=== PATIENT | female | born 1935 | race Caucasian/White ===

== ENCOUNTER 2018-05-15 00:34 | Inpatient (IN) | payer MEDICARE, BC ==
[2018-05-15 01:04] LABS: ADD MAN DIFF? NO
[2018-05-15 01:08] LABS: BASO # 0.1 x10^3/uL (0.0-0.2); BASO % 1 % (0-3); EOS # 0.1 x10^3/uL (0.0-0.7); EOS % 3 % (0-3); HEMATOCRIT 35.6 % (36.0-47.0); HEMOGLOBIN 12.4 g/dL (12.0-15.5); LYMPH # 1.3 x10^3/uL (1.0-4.8); LYMPH % 30 % (24-48); MEAN CORPUSCULAR HEMOGLOBIN 32 pg (25-35); MEAN CORPUSCULAR HGB CONC 35 g/dL (31-37); MEAN CORPUSCULAR VOLUME 93 fL (79-100); MONO # 0.4 x10^3/uL (0.0-1.1); MONO % 9 % (0-9); NEUT # 2.4 x10^3uL (1.8-7.7); NEUT % 57 % (31-73); PLATELET COUNT 154 x10^3/uL (140-400); RED BLOOD COUNT 3.84 x10^6/uL (3.50-5.40); RED CELL DISTRIBUTION WIDTH 14.4 % (11.5-14.5); WHITE BLOOD COUNT 4.2 x10^3/uL (4.0-11.0)
[2018-05-15 01:14] LABS: ANION GAP 7 (6-14); BLOOD UREA NITROGEN 23 mg/dL (7-20); BUN/CREATININE RATIO 12 (6-20); CALCIUM 9.1 mg/dL (8.5-10.1); CARBON DIOXIDE 27 mmol/L (21-32); CHLORIDE 103 mmol/L (98-107); CREATININE 1.9 mg/dL (0.6-1.0); GFR 25.4; GLUCOSE 108 mg/dL (70-99); POTASSIUM 4.2 mmol/L (3.5-5.1); SODIUM 137 mmol/L (136-145)
[2018-05-15 01:21] LABS: ALBUMIN 3.2 g/dL (3.4-5.0); ALBUMIN/GLOBULIN RATIO 0.8 (1.0-1.7); ALK PHOS 138 U/L (46-116); ALT (SGPT) 15 U/L (14-59); AST (SGOT) 21 U/L (15-37); CREATINE KINASE 115 U/L (26-192); TOTAL BILIRUBIN 0.7 mg/dL (0.2-1.0); TOTAL PROTEIN 7.1 g/dL (6.4-8.2)
[2018-05-15 01:31] LABS: TROPONINI < 0.017 ng/mL (0.000-0.055)
[2018-05-15] MEDS ORDERED: ONDANSETRON PF 4 MG/2 ML VIAL. IV (01:45)
[2018-05-15] MEDS ORDERED: NITROGLYCERIN SUBLINGUAL 0.4 MG BOTTLE OF 25. SL (02:45)
[2018-05-15] MEDS: fentaNYL PF VIAL 100 MCG/2 ML VIAL IV (09:07)
[2018-05-15] MEDS: LEVOTHYROXINE 25 MCG TABLET. PO (09:07)
[2018-05-15 10:04] LABS: MAGNESIUM 1.8 mg/dL (1.8-2.4)
[2018-05-15 10:16] LABS: TROPONINI < 0.017 ng/mL (0.000-0.055)
[2018-05-15 10:19] LABS: THYROID STIM HORMONE (TSH) 16.226 uIU/mL (0.358-3.74)
[2018-05-15] MEDS: ONDANSETRON PF 4 MG/2 ML VIAL. IV (10:22)
[2018-05-15 12:55] LABS: TROPONINI < 0.017 ng/mL (0.000-0.055)
[2018-05-15 16:05] LABS: TROPONINI < 0.017 ng/mL (0.000-0.055)
[2018-05-15] MEDS: HYDROcodone/APAP 5/325MG 1 TAB TABLET PO ×2 (17:10→22:31)
[2018-05-16 05:55] LABS: ANION GAP 10 (6-14); BLOOD UREA NITROGEN 21 mg/dL (7-20); CALCIUM 9.1 mg/dL (8.5-10.1); CARBON DIOXIDE 23 mmol/L (21-32); CHLORIDE 105 mmol/L (98-107); CHOLESTEROL 181 mg/dL (0-200); CHOLESTEROL/HDL RATIO 3.8; CREATININE 1.9 mg/dL (0.6-1.0); GFR 25.4; GLUCOSE 84 mg/dL (70-99); HDLC 48 mg/dL (40-60); LDLC 113 mg/dL (0-100); NON-HDL CHOLESTEROL 133 mg/dL (0-129); POTASSIUM 4.9 mmol/L (3.5-5.1); SODIUM 138 mmol/L (136-145); TRIGLYCERIDES 100 mg/dL (0-150); VLDLC 20 mg/dL (0-40)
[2018-05-16] MEDS: REGADENOSON 0.4 MG/5 ML DISP.SYRIN. IV (08:15)
[2018-05-16] MEDS: LEVOTHYROXINE 75 MCG TABLET PO (11:34)
[2018-05-16] MEDS: HYDROcodone/APAP 5/325MG 1 TAB TABLET PO (11:35)
[2018-05-17] MEDS: REGADENOSON 0.4 MG/5 ML DISP.SYRIN. IV (08:40)
[2018-05-17] MEDS: ONDANSETRON PF 4 MG/2 ML VIAL. IV (09:32)
[2018-05-17] MEDS: IV NORMAL SALINE 1000ML BAG 1,000 ML IV ×2 (10:40→20:15)
[2018-05-17] MEDS: LEVOTHYROXINE 75 MCG TABLET PO (10:41)
[2018-05-17] MEDS: HYDROcodone/APAP 5/325MG 1 TAB TABLET PO ×2 (13:45→20:47)
[2018-05-17] MEDS: ACETAMINOPHEN 500 MG TABLET PO (14:34)
[2018-05-18 04:54] LABS: ALBUMIN 2.7 g/dL (3.4-5.0); ANION GAP 6 (6-14); BLOOD UREA NITROGEN 20 mg/dL (7-20); CALCIUM 8.3 mg/dL (8.5-10.1); CARBON DIOXIDE 28 mmol/L (21-32); CHLORIDE 107 mmol/L (98-107); CREATININE 1.8 mg/dL (0.6-1.0); GLUCOSE 85 mg/dL (70-99); PHOSPHORUS 3.5 mg/dL (2.6-4.7); POTASSIUM 4.2 mmol/L (3.5-5.1); SODIUM 141 mmol/L (136-145)
[2018-05-18] MEDS: LEVOTHYROXINE 75 MCG TABLET PO (06:03)
== END 2018-05-18 15:15 | disposition home or self-care (01) | DRG 392 ==
LOC: ER 00:34 → 2 NORTH 02:30
DX: K21.9 Gastro-esophageal reflux disease without esophagitis (principal); Z68.41 Body mass index [BMI] 40.0-44.9, adult; R07.89 Other chest pain; I10 Essential (primary) hypertension; E03.9 Hypothyroidism, unspecified; E66.01 Morbid (severe) obesity due to excess calories; Z82.49 Family history of ischemic heart disease and other diseases of the circulatory system; Z88.8 Allergy status to other drugs, medicaments and biological substances
CPT/HCPCS: 36415; 36569; 71045; 78452; 80048; 80053; 80061; 80069; 82550; 83735; 84439; 84443; 84481; 84484; 85025; 93005; 93017; 93306; 96374; 96375; 96376; 97161-GP; 97165-GO; 99285; 99285-25; A9500; J2405; J2785; J3010; J7030

== ENCOUNTER 2019-03-04 14:19 | Inpatient (IN) | payer MEDICARE, BC ==
[~2019-03-04] VITALS: Ht 160 cm; Wt 97.2 kg
[~2019-03-04 14:19] MED LIST: LEVO25TA4 PO; LEVO75TA PO
[2019-03-04 18:30] VITALS: BP 159/77
[2019-03-04 19:42] VITALS: BP 100/74
[2019-03-04] MEDS ORDERED: ACET325C5 PO (20:16)
[2019-03-04] MEDS ORDERED: CITA10TA4 PO (20:20)
[2019-03-04] MEDS ORDERED: CALC-56 PO (20:20)
[2019-03-04] MEDS ORDERED: ONDANSETRON PF 4 MG/2 ML VIAL. IV PRN (20:45)
[2019-03-04] MEDS: IV DEXTROSE 5 %-0.45 % NACL 1,000 ML IV SCH (22:07)
[2019-03-04 23:22] VITALS: BP 135/63
[2019-03-04 23:55] LABS: BASO % 1 % (0-3); EOS # 0.2 x10^3/uL (0.0-0.7); EOS % 7 % (0-3); HEMATOCRIT 35.5 % (36.0-47.0); HEMOGLOBIN 11.8 g/dL (12.0-15.5); LYMPH % 37 % (24-48); MEAN CORPUSCULAR HEMOGLOBIN 31 pg (25-35); MEAN CORPUSCULAR HGB CONC 33 g/dL (31-37); MEAN CORPUSCULAR VOLUME 95 fL (79-100); MONO # 0.3 x10^3/uL (0.0-1.1); MONO % 10 % (0-9); NEUT # 1.2 x10^3uL (1.8-7.7); NEUT % 45 % (31-73); PLATELET COUNT 106 x10^3/uL (140-400); RED BLOOD COUNT 3.76 x10^6/uL (3.50-5.40); RED CELL DISTRIBUTION WIDTH 14.2 % (11.5-14.5); WHITE BLOOD COUNT 2.7 x10^3/uL (4.0-11.0)
[2019-03-05 00:14] LABS: ALBUMIN 3.1 g/dL (3.4-5.0); ALBUMIN/GLOBULIN RATIO 0.8 (1.0-1.7); CALCIUM 9.4 mg/dL (8.5-10.1); CREATININE 1.8 mg/dL (0.6-1.0); POTASSIUM 3.8 mmol/L (3.5-5.1)
[2019-03-05] MEDS: fentaNYL PF VIAL 100 MCG/2 ML VIAL IV PRN ×2 (00:25→09:43)
[2019-03-05] MEDS ORDERED: PANT20TA2 PO (01:46)
[2019-03-05] MEDS ORDERED: NYST15PO9 TP (01:46)
[2019-03-05] MEDS ORDERED: DONE10TA7 PO (01:46)
[2019-03-05] MEDS ORDERED: ASPI81TA50 PO (01:46)
[2019-03-05] MEDS ORDERED: MEMA10TA PO (01:46)
[2019-03-05] MEDS ORDERED: LEVO100T5 PO (01:46)
[2019-03-05] MEDS ORDERED: LOSA-73 PO (01:46)
[2019-03-05] MEDS ORDERED: MELA3TAB2 PO (01:46)
[2019-03-05] MEDS ORDERED: DOCU100C28 PO (01:46)
[2019-03-05] MEDS ORDERED: ONDA4TAB12 PO (01:46)
[2019-03-05 02:17] VITALS: BP 178/65
[2019-03-05] MEDS ORDERED: ONDANSETRON ODT 4 MG TAB.RAPDIS. PO PRN (06:00)
[2019-03-05] MEDS: LEVOTHYROXINE 100 MCG TABLET PO SCH (06:00)
[2019-03-05 07:42] VITALS: BP 123/61
--- NOTE | 2019-03-05 08:20 | RAD ---
Examination: Ultrasound abdomen complete HISTORY: History of abdominal pain COMPARISON: None available. FINDINGS: The pancreas is poorly visualized. There is increased echogenicity noted in the liver likely hepatic steatosis. The liver measures 17.1 cm. The common bile duct measures 4.9 mm in transverse dimension. Multiple echogenicities identified within the gallbladder likely gallstones. The gallbladder wall thickness measures 3.5 mm. Examination is positive for ultrasonographic evidence of Hernandez's sign. Minimal pericholecystic fluid is identified. The right kidney measures 9.5 x 4.9 x 4.9 cm. The left kidney measures 10.5 x 4.8 x 4.4 cm. There is a 1 cm cystic structure identified in the left kidney containing echogenicities could be a cyst or a complex cyst. Thinning of the bilateral renal cortices. The aorta, IVC are not well-visualized. The spleen measures 13.5 cm. IMPRESSION: 1. Cholelithiasis with thickening of the gallbladder wall and ultrasonographic evidence of Hernandez's sign with minimal pericholecystic fluid. Correlate for acute cholecystitis. 2. Hepatic steatosis. 3. 1 cm cystic structure identified in the left kidney containing echogenicity could be a complex cyst. Thinning of the bilateral renal cortices. Correlate for medical renal disease. Electronically signed by: Kelvin Handley MD (03/05/2019 8:17 AM) [facility]
[2019-03-05] MEDS: NYSTATIN TOPICAL POWDER 15GM BOTTLE. TP SCH ×3 (09:00→21:00)
--- NOTE | 2019-03-05 09:12 | PDOC2 ---
CONSULT Date of Consult Date of Consult DATE: 03/05/19 TIME: 09:02 Reason for Consult Reason for Consult: possible SBO Referring Physician Referring Physician: Dr Perea Identification/Chief Complaint Chief Complaint doesn't feel well Source Source: Chart review, Patient History of Present Illness Reason for Visit: Ms Menon is a radha 83 yo lady with a hx of atrial fibrillation who was most recently staying at the [facility] after a hospitalization for near syncope. Concern for possible bowel obstruction by staff there resulted in her being admitted for evaluation. This AM she really isn't having abdominal pain but "just doesn't feel good". US done here shows cholelithiasis with some GB wall thickening Past Medical History Cardiovascular: HTN Endocrine: Hypothyroidism Past Surgical History Past Surgical History: No pertinent history Family History Family History: Hypertension Social History No ALCOHOL: none Drugs: None Current Medications Current Medications Current Medications Dextrose/Sodium Chloride 1,000 ml @ 100 mls/hr Q10H IV Last administered on 03/04/19at 22:07; Start 03/04/19 at 20:45 Fentanyl Citrate (Fentanyl 2ml Vial) 50 mcg PRN Q3HRS PRN IV PAIN Last administered on 03/05/19at 00:25; Start 03/04/19 at 20:45 Ondansetron HCl (Zofran) 4 mg PRN Q4HRS PRN IV NAUSEA/VOMITING; Start 03/04/19 at 20:45 Calcium/Vitamin D (Oscal D 500mg/ 200uts) 1 tab DAILYWBKFT PO ; Start 03/05/19 at 08:00 Citalopram Hydrobromide (CeleXA) 10 mg DAILY PO ; Start 03/05/19 at 09:00 Docusate Sodium (Colace) 100 mg BID PO ; Start 03/05/19 at 09:00 Levothyroxine Sodium (Synthroid) 100 mcg DAILY06 PO ; Start 03/05/19 at 06:00 Losartan Potassium (Cozaar) 50 mg DAILY PO ; Start 03/05/19 at 09:00 Nystatin (Nystop) 1 chloe BID TP ; Start 03/05/19 at 09:00 Ondansetron HCl (Zofran Odt) 4 mg PRN Q8HRS PRN PO NAUSEA/VOMITING; Start 03/05/19 at 06:00 Acetaminophen (Tylenol) 650 mg PRN Q4HRS PRN PO PAIN; Start 03/05/19 at 05:45 Donepezil HCl (Aricept) 10 mg HS PO ; Start 03/05/19 at 21:00 Memantine (Namenda) 5 mg BID PO ; Start 03/05/19 at 09:00 Pantoprazole Sodium (Protonix) 40 mg DAILYAC PO ; Start 03/05/19 at 07:30 Active Scripts Active Reported Protonix (Pantoprazole Sodium) 20 Mg Tablet.dr 2 Tab PO DAILY Ondansetron Odt (Ondansetron) 4 Mg Tab.rapdis 1 Tab PO PRN Q6-8HRS Nystatin 15 Gm Powder 1 Chloe TP BID Namenda (Memantine Hcl) 10 Mg Tablet 0.5 Tab PO BID Melatonin 3 Mg Tablet 1 Tab PO QHS Losartan Potassium 50 Mg Tablet 50 Mg PO DAILY Levothyroxine Sodium 100 Mcg Tablet 1 Tab PO DAILY Donepezil Hcl 10 Mg Tablet 10 Mg PO HS Docusate Sodium 100 Mg Capsule 1 Cap PO BID Aspir-Low (Aspirin) 81 Mg Tablet.dr 1 Tab PO DAILY Citalopram Hbr (Citalopram Hydrobromide) 10 Mg Tablet 1 Tab PO DAILY Calcium 500 + Vit D 200 Caplet (Calcium Carbonate/Vitamin D3) 1 Each Tablet 1 Each PO DAILY Tylenol (Acetaminophen) 325 Mg Capsule 650 Mg PO PRN Q4HRS PRN Allergies Allergies: Coded Allergies: morphine (Verified Allergy, Unknown, 05/15/18) ROS Review of System negative with exception of present complaints Cardiovascular: yes Chest Pain Physical Exam General: Alert, Cooperative, No acute distress HEENT: Atraumatic Lungs: Normal air movement Heart: Regular rate, Other Abdomen: Soft, No tenderness, Other (obese) Extremities: No clubbing Skin: Other (warm, dry) Psych/Mental Status: Mental status NL Vitals VITALS Vital Signs Date Time Temp Pulse Resp B/P (MAP) Pulse Ox O2 Delivery O2 Flow Rate FiO2 03/05/19 07:42 97.6 51 16 123/61 (81) 97 Room Air 97.6 Labs Labs Laboratory Tests Test 03/04/19 23:40 White Blood Count 2.7 x10^3/uL (4.0-11.0) Red Blood Count 3.76 x10^6/uL (3.50-5.40) Hemoglobin 11.8 g/dL (12.0-15.5) Hematocrit 35.5 % (36.0-47.0) Mean Corpuscular Volume 95 fL (79-100) Mean Corpuscular Hemoglobin 31 pg (25-35) Mean Corpuscular Hemoglobin Concent 33 g/dL (31-37) Red Cell Distribution Width 14.2 % (11.5-14.5) Platelet Count 106 x10^3/uL (140-400) Neutrophils (%) (Auto) 45 % (31-73) Lymphocytes (%) (Auto) 37 % (24-48) Monocytes (%) (Auto) 10 % (0-9) Eosinophils (%) (Auto) 7 % (0-3) Basophils (%) (Auto) 1 % (0-3) Neutrophils # (Auto) 1.2 x10^3uL (1.8-7.7) Lymphocytes # (Auto) 1.0 x10^3/uL (1.0-4.8) Monocytes # (Auto) 0.3 x10^3/uL (0.0-1.1) Eosinophils # (Auto) 0.2 x10^3/uL (0.0-0.7) Basophils # (Auto) 0.0 x10^3/uL (0.0-0.2) Sodium Level 141 mmol/L (136-145) Potassium Level 3.8 mmol/L (3.5-5.1) Chloride Level 107 mmol/L (98-107) Carbon Dioxide Level 26 mmol/L (21-32) Anion Gap 8 (6-14) Blood Urea Nitrogen 18 mg/dL (7-20) Creatinine 1.8 mg/dL (0.6-1.0) Estimated GFR (Cockcroft-Gault) 27.0 BUN/Creatinine Ratio 10 (6-20) Glucose Level 106 mg/dL (70-99) Lactic Acid Level 0.9 mmol/L (0.4-2.0) Calcium Level 9.4 mg/dL (8.5-10.1) Total Bilirubin 1.0 mg/dL (0.2-1.0) Aspartate Amino Transf (AST/SGOT) 20 U/L (15-37) Alanine Aminotransferase (ALT/SGPT) 14 U/L (14-59) Alkaline Phosphatase 119 U/L (46-116) Lactate Dehydrogenase 220 U/L (81-234) Total Protein 7.0 g/dL (6.4-8.2) Albumin 3.1 g/dL (3.4-5.0) Albumin/Globulin Ratio 0.8 (1.0-1.7) Lipase 213 U/L (73-393) Laboratory Tests Test 03/04/19 23:40 White Blood Count 2.7 x10^3/uL (4.0-11.0) Red Blood Count 3.76 x10^6/uL (3.50-5.40) Hemoglobin 11.8 g/dL (12.0-15.5) Hematocrit 35.5 % (36.0-47.0) Mean Corpuscular Volume 95 fL (79-100) Mean Corpuscular Hemoglobin 31 pg (25-35) Mean Corpuscular Hemoglobin Concent 33 g/dL (31-37) Red Cell Distribution Width 14.2 % (11.5-14.5) Platelet Count 106 x10^3/uL (140-400) Neutrophils (%) (Auto) 45 % (31-73) Lymphocytes (%) (Auto) 37 % (24-48) Monocytes (%) (Auto) 10 % (0-9) Eosinophils (%) (Auto) 7 % (0-3) Basophils (%) (Auto) 1 % (0-3) Neutrophils # (Auto) 1.2 x10^3uL (1.8-7.7) Lymphocytes # (Auto) 1.0 x10^3/uL (1.0-4.8) Monocytes # (Auto) 0.3 x10^3/uL (0.0-1.1) Eosinophils # (Auto) 0.2 x10^3/uL (0.0-0.7) Basophils # (Auto) 0.0 x10^3/uL (0.0-0.2) Sodium Level 141 mmol/L (136-145) Potassium Level 3.8 mmol/L (3.5-5.1) Chloride Level 107 mmol/L (98-107) Carbon Dioxide Level 26 mmol/L (21-32) Anion Gap 8 (6-14) Blood Urea Nitrogen 18 mg/dL (7-20) Creatinine 1.8 mg/dL (0.6-1.0) Estimated GFR (Cockcroft-Gault) 27.0 BUN/Creatinine Ratio 10 (6-20) Glucose Level 106 mg/dL (70-99) Lactic Acid Level 0.9 mmol/L (0.4-2.0) Calcium Level 9.4 mg/dL (8.5-10.1) Total Bilirubin 1.0 mg/dL (0.2-1.0) Aspartate Amino Transf (AST/SGOT) 20 U/L (15-37) Alanine Aminotransferase (ALT/SGPT) 14 U/L (14-59) Alkaline Phosphatase 119 U/L (46-116) Lactate Dehydrogenase 220 U/L (81-234) Total Protein 7.0 g/dL (6.4-8.2) Albumin 3.1 g/dL (3.4-5.0) Albumin/Globulin Ratio 0.8 (1.0-1.7) Lipase 213 U/L (73-393) Images Images US done earlier is reviewed Assessment/Plan Assessment/Plan cholelithiasis, subacute cholecystitis hx of AF obesity will manage non operatively til seen by cardiology cover with antibiotics may need zoraida at some point will follow thanks for consult! KIN MEJIA MD March 05, 2019 09:12
[2019-03-05] MEDS ORDERED: PIP/TAZO PER PHARMACY MC PRN (09:15)
[2019-03-05] MEDS: ACETAMINOPHEN 325 MG TABLET. PO PRN ×2 (09:38→22:31)
[2019-03-05] MEDS: IV DEXTROSE 5 %-0.45 % NACL 1,000 ML IV SCH ×2 (09:42→22:34)
[2019-03-05] MEDS: PIPERACILLIN/TAZOBACTAM 2.25 GM in IV NORMAL SALINE 50ML 50 ML IV SCH ×2 (09:52→18:02)
--- NOTE | 2019-03-05 10:18 | NUR ---
PATIENT CALLED TO NURSES STATION. PATIENT STATED SHE HAD BLEEDING AT HER IV SITE. THIS RN ASSESSED SITE AND PATIENT ACCIDENTALLY PULLED OUT IV. PRESSURE HELD AT SITE. WILL CONTINUE TO MONITOR THAT SITE.
--- NOTE | 2019-03-05 10:42 | PDOC ---
PROGRESS NOTES Subjective Subjective Patient was seen in consultation for chest pain at [facility] prior to transfer to [facility]. Please see full consultation from [facility]. She continues to complain of atypical right-sided chest pain but denied any orthopnea/PND, palpitations Objective Objective Vital Signs Date Time Temp Pulse Resp B/P (MAP) Pulse Ox O2 Delivery O2 Flow Rate FiO2 03/05/19 09:43 97 Room Air 03/05/19 07:42 97.6 51 16 123/61 (81) 97.6 Intake and Output 03/05/19 06:59 Intake Total 800 ml Output Total 950 ml Balance -150 ml Intake Oral 0 ml IV Total 800 ml Output Urine Total 950 ml Physical Exam Abdomen: Soft, No tenderness, Other (obese) Heart: Regular rate, Other Extremities: No clubbing General: Alert, Cooperative, No acute distress HEENT: Atraumatic Lungs: Normal air movement Psych/Mental Status: Mental status NL Skin: Other (warm, dry) Assessment Assessment 1. Chest pain with atypical features: Myocardial infarction has been ruled out. This appears to be musculoskeletal versus GI etiology and I doubt ACS. 2-D echo in April 2018 showed normal LV systolic function and Lexiscan nuclear stress test at that time did not show any significant ischemia. 2. Hypertension: Controlled 3. Syncope of uncertain etiology in the past s/p loop recorder implantation: Recent device checks did not show any significant arrhythmias/pauses 4. History of SVT versus atrial flutter in the past without any arrhythmias on loop recorder interrogations 5. Hypothyroidism: On levothyroxine 6. Subacute cholecystitis being followed by general surgery team. Patient is cleared for any procedures necessary, from cardiac standpoint Comment Review of Relevant I have reviewed the following items laurent (where applicable) has been applied. Labs Laboratory Tests Test 03/04/19 23:40 White Blood Count 2.7 x10^3/uL (4.0-11.0) Red Blood Count 3.76 x10^6/uL (3.50-5.40) Hemoglobin 11.8 g/dL (12.0-15.5) Hematocrit 35.5 % (36.0-47.0) Mean Corpuscular Volume 95 fL (79-100) Mean Corpuscular Hemoglobin 31 pg (25-35) Mean Corpuscular Hemoglobin Concent 33 g/dL (31-37) Red Cell Distribution Width 14.2 % (11.5-14.5) Platelet Count 106 x10^3/uL (140-400) Neutrophils (%) (Auto) 45 % (31-73) Lymphocytes (%) (Auto) 37 % (24-48) Monocytes (%) (Auto) 10 % (0-9) Eosinophils (%) (Auto) 7 % (0-3) Basophils (%) (Auto) 1 % (0-3) Neutrophils # (Auto) 1.2 x10^3uL (1.8-7.7) Lymphocytes # (Auto) 1.0 x10^3/uL (1.0-4.8) Monocytes # (Auto) 0.3 x10^3/uL (0.0-1.1) Eosinophils # (Auto) 0.2 x10^3/uL (0.0-0.7) Basophils # (Auto) 0.0 x10^3/uL (0.0-0.2) Sodium Level 141 mmol/L (136-145) Potassium Level 3.8 mmol/L (3.5-5.1) Chloride Level 107 mmol/L (98-107) Carbon Dioxide Level 26 mmol/L (21-32) Anion Gap 8 (6-14) Blood Urea Nitrogen 18 mg/dL (7-20) Creatinine 1.8 mg/dL (0.6-1.0) Estimated GFR (Cockcroft-Gault) 27.0 BUN/Creatinine Ratio 10 (6-20) Glucose Level 106 mg/dL (70-99) Lactic Acid Level 0.9 mmol/L (0.4-2.0) Calcium Level 9.4 mg/dL (8.5-10.1) Total Bilirubin 1.0 mg/dL (0.2-1.0) Aspartate Amino Transf (AST/SGOT) 20 U/L (15-37) Alanine Aminotransferase (ALT/SGPT) 14 U/L (14-59) Alkaline Phosphatase 119 U/L (46-116) Lactate Dehydrogenase 220 U/L (81-234) Total Protein 7.0 g/dL (6.4-8.2) Albumin 3.1 g/dL (3.4-5.0) Albumin/Globulin Ratio 0.8 (1.0-1.7) Lipase 213 U/L (73-393) Medications Current Medications Acetaminophen (Tylenol) 650 mg PRN Q4HRS PRN PO PAIN Last administered on 03/05/19at 09:38; Start 03/05/19 at 05:45 Calcium/Vitamin D (Oscal D 500mg/ 200uts) 1 tab DAILYWBKFT PO ; Start 03/05/19 at 08:00 Citalopram Hydrobromide (CeleXA) 10 mg DAILY PO ; Start 03/05/19 at 09:00 Dextrose/Sodium Chloride 1,000 ml @ 100 mls/hr Q10H IV Last administered on 03/05/19at 09:42; Start 03/04/19 at 20:45 Docusate Sodium (Colace) 100 mg BID PO ; Start 03/05/19 at 09:00 Donepezil HCl (Aricept) 10 mg HS PO ; Start 03/05/19 at 21:00 Fentanyl Citrate (Fentanyl 2ml Vial) 50 mcg PRN Q3HRS PRN IV PAIN Last administered on 03/05/19at 09:43; Start 03/04/19 at 20:45 Levothyroxine Sodium (Synthroid) 100 mcg DAILY06 PO ; Start 03/05/19 at 06:00 Losartan Potassium (Cozaar) 50 mg DAILY PO ; Start 03/05/19 at 09:00 Memantine (Namenda) 5 mg BID PO ; Start 03/05/19 at 09:00 Nystatin (Nystop) 1 domenica BID TP ; Start 03/05/19 at 09:00 Ondansetron HCl (Zofran Odt) 4 mg PRN Q8HRS PRN PO NAUSEA/VOMITING; Start 03/05/19 at 06:00 Ondansetron HCl (Zofran) 4 mg PRN Q4HRS PRN IV NAUSEA/VOMITING; Start 03/04/19 at 20:45 Pantoprazole Sodium (Protonix) 40 mg DAILYAC PO ; Start 03/05/19 at 07:30 Piperacillin Sod/ Tazobactam Sod (Zosyn Per Pharmacy) 1 each PRN DAILY PRN [facility] SEE COMMENTS; Start 03/05/19 at 09:15 Piperacillin Sod/ Tazobactam Sod 2.25 gm/Sodium Chloride 50 ml @ 100 mls/hr Q6HRS IV Last administered on 03/05/19at 09:52; Start 03/05/19 at 10:00 Vitals/I & O Vital Sign - Last 24 Hours 03/04/19 03/04/19 03/04/19 03/04/19 18:30 18:30 19:15 19:42 Temp 97.8 98.3 97.8 98.3 Pulse 55 52 Resp 20 16 B/P (MAP) 159/77 (104) 100/74 (83) Pulse Ox 99 96 O2 Delivery Room Air Room Air Room Air Room Air 03/04/19 03/05/19 03/05/19 03/05/19 23:22 00:25 00:55 02:17 Temp 98.0 98.1 98.0 98.1 Pulse 80 53 Resp 16 20 20 18 B/P (MAP) 135/63 (87) 178/65 (102) Pulse Ox 91 91 96 O2 Delivery Room Air Room Air Room Air 03/05/19 03/05/19 03/05/19 07:40 07:42 09:43 Temp 97.6 97.6 Pulse 51 Resp 16 B/P (MAP) 123/61 (81) Pulse Ox 97 97 O2 Delivery Room Air Room Air Room Air Intake and Output 03/04/19 03/04/19 03/05/19 14:59 22:59 06:59 Intake Total 0 ml 800 ml Output Total 100 ml 850 ml Balance -100 ml -50 ml AMADA CORREA MD March 05, 2019 10:42
[2019-03-05 11:00] VITALS: BP 119/64
--- NOTE | 2019-03-05 11:58 | HP ---
ADMIT DATE: 03/04/2019 HISTORY OF PRESENT ILLNESS: The patient is an 83-year-old female patient who was brought to the Emergency Room with a complaint of chest pain and was extensively investigated and has had 3 sets of cardiac enzymes that were negative. We did even consult the professor of history; however, when I examined her myself, the patient did complain of shoulder pain and right upper quadrant pain and her Hernandez sign was clinically positive. I was concerned about acute cholecystitis and her kidney function was abnormal. I did a CT scan of the abdomen without contrast, which showed that the patient has multiple periumbilical ventral hernias. There is an infraumbilical hernia near the midline and contains a portion of the small bowel. No evidence of bowel obstruction. She has also nodular areas of consolidation in the left lower lobe that are indeterminate and could represent atelectasis or pneumonia, underlying neoplastic process not excluded. She also has bibasilar interstitial changes, mild edema versus mild fibrosis. She has mild splenomegaly, status post appendectomy. CT scan showed that the gallbladder was unremarkable. Spleen is mildly enlarged. Pancreas, adrenal glands and kidneys are unremarkable. No stones or hydronephrosis. Given the severe pain in her right upper quadrant and possible radiation to her right shoulder, I still thought that she might have either acute cholecystitis and therefore the patient was transferred to [facility] for evaluation and to do ultrasound and to consult the surgical team. PAST MEDICAL HISTORY: Significant for hypothyroidism, chronic back pain, morbid obesity, degenerative joint disease, history of syncope for which she has a loop recorder placed, and she has also history of acute pancreatitis at that time without evidence of acute cholecystitis or choledocholithiasis. PAST SURGICAL HISTORY: Significant for tonsillectomy and loop recorder placement. FAMILY HISTORY: She has 1 younger brother who has cognitive impairment. Her father because of cancer. She claimed that her mother is still alive. SOCIAL HISTORY: She apparently has 3 children, 1 son and 2 daughters. She does not smoke, drink alcohol, or use any recreational drugs. She apparently was fairly independent. However, currently her family takes care of her. ALLERGIES: She has no known drug allergies. MEDICATIONS: She is currently on following medications: She is on Aricept 10 mg at bedtime, albuterol sulfate 1 puff every 6 hours, losartan potassium 50 mg daily, aspirin 81 mg once a day, acetaminophen 650 mg every 4-6 hours, citalopram hydrobromide for Celexa 10 mg daily, Namenda 5 mg twice a day, calcium carbonate with vitamin D3 one tablet daily. She is on Colace 100 mg twice a day, magnesium oxide 300 mL p.o. daily p.r.n. for constipation, omeprazole 20 mg daily, levothyroxine sodium 100 mcg daily, and melatonin 3 mg at bedtime. PHYSICAL EXAMINATION: GENERAL: When I examined her this morning, she was resting slightly propped up in bed, in no apparent distress. She was confused and demented. She is very forgetful. She did tell the nurse that she has fallen and that is why she has shoulder pain, but when I saw her she told me that she does not recall if she has fallen. She was pale, but no jaundice, cyanosis, or thyromegaly. No jugular venous distension. No lower limb edema. VITAL SIGNS: Her heart rate was 59, blood pressure was 113/63, temperature was 98.4, respiratory rate was 20, and oxygen saturation was 93% on room air. HEAD, EYES, EARS, NOSE AND THROAT: Showed normocephalic, atraumatic. NECK: Supple. HEART: Showed normal first and second heart sounds. No gallop, rub or murmur. CHEST: Clear to auscultation. No crepitation or rhonchi. ABDOMEN: Distended, soft, tenderness mostly in the right upper quadrant. Hernandez sign is positive. NEUROLOGICAL: She was demented, but without any obvious lateralizing sign. All her cranial nerves intact. She moves extremities without difficulty. LABORATORY DATA: Her lab work done at [facility] showed a serum sodium 141, potassium 3.7, chloride 106, bicarbonate 26, anion gap of 9, BUN 18, creatinine 2, estimated GFR was 24 mL per minute. Her glucose was 102, calcium was 9.1, magnesium was 1.9. Total bilirubin, AST, ALT were normal. Alkaline phosphatase slightly elevated. She has 3 sets of cardiac enzymes that were less than 0.017. Her total protein was 7.8, albumin was 3.4. Her TSH was high at 14.526. Her white cell count was 3400, hemoglobin 13, hematocrit 39, MCV 94 and platelet count of 135,000. We did actually x-ray of her chest, which showed that the cardiac silhouette is mildly enlarged. The thoracic aorta is tortuous. No acute pulmonary infiltrate is seen. No pleural effusion or pneumothorax is noted. The osseous structures are unchanged. X-ray of her shoulder showed no acute radiographic abnormality, deformity of the right humeral head and neck could be related to old healed fracture. She has degenerative changes of the acromioclavicular joint. No periostitis or bone destruction. ASSESSMENT AND PLAN: The patient was admitted to [facility]. We will consult the surgical team. I have arranged also for her to have abdominal ultrasound. We will obviously keep her n.p.o. meanwhile, continue with IV fluid, pain medication and decide on further management according to the finding of the ultrasound and evaluation by the surgical team. ALEXY LIN MD DR: NATALIE/jackie JOB#: [id number] / [id number]
[2019-03-05] MEDS: PANTOPRAZOLE 40 MG TABLET.DR. PO SCH (12:08)
[2019-03-05] MEDS: MEMANTINE 5 MG TABLET. PO SCH ×2 (12:08→21:02)
[2019-03-05] MEDS: CITALOPRAM 10 MG TABLET. PO SCH (12:08)
[2019-03-05] MEDS: CALCIUM CARB/VIT D3 500/200 TABLET. PO SCH (12:08)
[2019-03-05] MEDS: DOCUSATE SODIUM 100 MG CAPSULE. PO SCH ×2 (12:09→21:02)
[2019-03-05] MEDS: LOSARTAN POTASSIUM 50 MG TABLET. PO SCH (12:09)
[2019-03-05 14:30] VITALS: BP 144/65
[2019-03-05 19:56] VITALS: BP 154/65
[2019-03-05] MEDS: DONEPEZIL HCL 10 MG TABLET. PO SCH (21:02)
[2019-03-05 23:51] VITALS: BP 156/59
[2019-03-06] MEDS: PIPERACILLIN/TAZOBACTAM 2.25 GM in IV NORMAL SALINE 50ML 50 ML IV SCH ×5 (00:04→23:53)
[2019-03-06] MEDS: fentaNYL PF VIAL 100 MCG/2 ML VIAL IV PRN (01:22)
[2019-03-06 03:41] VITALS: BP 139/72
[2019-03-06] MEDS: LEVOTHYROXINE 100 MCG TABLET PO SCH (05:36)
[2019-03-06 07:00] VITALS: BP 115/51
[2019-03-06] MEDS: NYSTATIN TOPICAL POWDER 15GM BOTTLE. TP SCH ×2 (09:00→21:00)
--- NOTE | 2019-03-06 09:03 | PDOC ---
PROGRESS NOTES Subjective Subjective Continues to complain of right-sided inframammary chest pain and right upper quadrant abdominal pain Objective Objective Vital Signs Date Time Temp Pulse Resp B/P (MAP) Pulse Ox O2 Delivery O2 Flow Rate FiO2 03/06/19 07:00 97.7 49 20 115/51 (72) 97 Room Air 97.7 Intake and Output 03/06/19 06:59 Intake Total 680 ml Output Total 1350 ml Balance -670 ml Intake Oral 680 ml Output Urine Total 1350 ml # Voids 2 # Bowel Movements 1 Physical Exam Abdomen: Soft, No tenderness, Other (obese) Heart: Regular rate, Other Extremities: No clubbing General: Alert, Cooperative, No acute distress HEENT: Atraumatic Lungs: Normal air movement Psych/Mental Status: Mental status NL Skin: Other (warm, dry) Assessment Assessment 1. Chest pain with atypical features: Myocardial infarction has been ruled out. This appears to be musculoskeletal versus GI etiology. I doubt ACS. 2-D echo in April 2018 showed normal LV systolic function and Lexiscan nuclear stress test at that time did not show any significant ischemia. 2. Hypertension: Controlled 3. Syncope of uncertain etiology in the past s/p loop recorder implantation: Recent device checks did not show any significant arrhythmias/pauses 4. History of SVT versus atrial flutter in the past without any arrhythmias on loop recorder interrogations 5. Hypothyroidism: On levothyroxine 6. Subacute cholecystitis being planned for cholecystectomy tomorrow by general surgical team. Comment Review of Relevant I have reviewed the following items laurent (where applicable) has been applied. Medications Current Medications Donepezil HCl (Aricept) 10 mg HS PO Last administered on 03/05/19at 21:02; Start 03/05/19 at 21:00 Piperacillin Sod/ Tazobactam Sod (Zosyn Per Pharmacy) 1 each PRN DAILY PRN [facility] SEE COMMENTS; Start 03/05/19 at 09:15 Piperacillin Sod/ Tazobactam Sod 2.25 gm/Sodium Chloride 50 ml @ 100 mls/hr Q6HRS IV Last administered on 03/06/19at 05:37; Start 03/05/19 at 10:00 Vitals/I & O Vital Sign - Last 24 Hours 03/05/19 03/05/19 03/05/19 03/05/19 09:43 10:10 11:00 12:09 Temp 97.8 97.8 Pulse 53 53 Resp 16 B/P (MAP) 119/64 (82) 119/64 Pulse Ox 97 97 95 O2 Delivery Room Air Room Air Room Air 03/05/19 03/05/19 03/05/19 03/05/19 14:30 19:40 19:56 23:51 Temp 98.3 98.3 98.1 98.3 98.3 98.1 Pulse 50 56 54 Resp 18 17 18 B/P (MAP) 144/65 (91) 154/65 (94) 156/59 (91) Pulse Ox 99 100 97 O2 Delivery Room Air Room Air Room Air Room Air 03/06/19 03/06/19 03/06/19 01:22 03:41 07:00 Temp 98.1 97.7 98.1 97.7 Pulse 66 49 Resp 18 18 20 B/P (MAP) 139/72 (94) 115/51 (72) Pulse Ox 98 97 O2 Delivery Room Air Room Air Room Air Intake and Output 03/05/19 03/05/19 03/06/19 14:59 22:59 06:59 Intake Total 480 ml 200 ml Output Total 150 ml 1000 ml 200 ml Balance 330 ml -1000 ml 0 ml AMADA CORREA MD March 06, 2019 09:03
[2019-03-06] MEDS: MEMANTINE 5 MG TABLET. PO SCH ×2 (09:06→21:28)
[2019-03-06] MEDS: CALCIUM CARB/VIT D3 500/200 TABLET. PO SCH (09:06)
[2019-03-06] MEDS: LOSARTAN POTASSIUM 50 MG TABLET. PO SCH (09:07)
[2019-03-06] MEDS: CITALOPRAM 10 MG TABLET. PO SCH (09:07)
[2019-03-06] MEDS: DOCUSATE SODIUM 100 MG CAPSULE. PO SCH ×2 (09:07→21:28)
[2019-03-06] MEDS: PANTOPRAZOLE 40 MG TABLET.DR. PO SCH (09:07)
--- NOTE | 2019-03-06 10:13 | PDOC ---
SURGICAL PROGRESS NOTE Subjective feels better this AM having some Jell-O Vital Signs Vital Signs Date Time Temp Pulse Resp B/P (MAP) Pulse Ox O2 Delivery O2 Flow Rate FiO2 03/06/19 09:07 49 115/51 03/06/19 08:00 Room Air 03/06/19 07:00 97.7 20 97 97.7 I&O Intake and Output 03/06/19 07:00 Intake Total 680 ml Output Total 1350 ml Balance -670 ml Intake Oral 680 ml Output Urine Total 1350 ml # Voids 2 # Bowel Movements 1 PATIENT HAS A WILD: No General: Alert, No acute distress Abdomen: Soft, No tenderness Labs Laboratory Tests Test 03/04/19 23:40 White Blood Count 2.7 x10^3/uL (4.0-11.0) Red Blood Count 3.76 x10^6/uL (3.50-5.40) Hemoglobin 11.8 g/dL (12.0-15.5) Hematocrit 35.5 % (36.0-47.0) Mean Corpuscular Volume 95 fL (79-100) Mean Corpuscular Hemoglobin 31 pg (25-35) Mean Corpuscular Hemoglobin Concent 33 g/dL (31-37) Red Cell Distribution Width 14.2 % (11.5-14.5) Platelet Count 106 x10^3/uL (140-400) Neutrophils (%) (Auto) 45 % (31-73) Lymphocytes (%) (Auto) 37 % (24-48) Monocytes (%) (Auto) 10 % (0-9) Eosinophils (%) (Auto) 7 % (0-3) Basophils (%) (Auto) 1 % (0-3) Neutrophils # (Auto) 1.2 x10^3uL (1.8-7.7) Lymphocytes # (Auto) 1.0 x10^3/uL (1.0-4.8) Monocytes # (Auto) 0.3 x10^3/uL (0.0-1.1) Eosinophils # (Auto) 0.2 x10^3/uL (0.0-0.7) Basophils # (Auto) 0.0 x10^3/uL (0.0-0.2) Sodium Level 141 mmol/L (136-145) Potassium Level 3.8 mmol/L (3.5-5.1) Chloride Level 107 mmol/L (98-107) Carbon Dioxide Level 26 mmol/L (21-32) Anion Gap 8 (6-14) Blood Urea Nitrogen 18 mg/dL (7-20) Creatinine 1.8 mg/dL (0.6-1.0) Estimated GFR (Cockcroft-Gault) 27.0 BUN/Creatinine Ratio 10 (6-20) Glucose Level 106 mg/dL (70-99) Lactic Acid Level 0.9 mmol/L (0.4-2.0) Calcium Level 9.4 mg/dL (8.5-10.1) Total Bilirubin 1.0 mg/dL (0.2-1.0) Aspartate Amino Transf (AST/SGOT) 20 U/L (15-37) Alanine Aminotransferase (ALT/SGPT) 14 U/L (14-59) Alkaline Phosphatase 119 U/L (46-116) Lactate Dehydrogenase 220 U/L (81-234) Total Protein 7.0 g/dL (6.4-8.2) Albumin 3.1 g/dL (3.4-5.0) Albumin/Globulin Ratio 0.8 (1.0-1.7) Lipase 213 U/L (73-393) Assessment/Plan symptomatic cholelithiasis will schedule for l/s zoraida tomorrow after d/w family full liquids today, NPO at midnight KIN MEJIA MD March 06, 2019 10:13
[2019-03-06 10:36] LABS: HEMATOCRIT 37.5 % (36.0-47.0); HEMOGLOBIN 12.8 g/dL (12.0-15.5); RED BLOOD COUNT 3.93 x10^6/uL (3.50-5.40); RED CELL DISTRIBUTION WIDTH 14.7 % (11.5-14.5); WHITE BLOOD COUNT 2.5 x10^3/uL (4.0-11.0)
[2019-03-06 10:44] LABS: CALCIUM 8.4 mg/dL (8.5-10.1); CREATININE 1.9 mg/dL (0.6-1.0); GFR 25.4
[2019-03-06 10:48] LABS: ALBUMIN 2.9 g/dL (3.4-5.0); ALBUMIN/GLOBULIN RATIO 0.9 (1.0-1.7); TOTAL BILIRUBIN 0.9 mg/dL (0.2-1.0); TOTAL PROTEIN 6.1 g/dL (6.4-8.2)
[2019-03-06 11:33] VITALS: BP 145/76
[2019-03-06] MEDS: IV DEXTROSE 5 %-0.45 % NACL 1,000 ML IV SCH ×3 (12:11→22:45)
[2019-03-06 15:00] VITALS: BP 153/56
[2019-03-06 19:31] VITALS: BP 111/83
[2019-03-06] MEDS: DONEPEZIL HCL 10 MG TABLET. PO SCH (21:28)
--- NOTE | 2019-03-06 22:09 | PN ---
DATE: 03/06/2019 SUBJECTIVE: The patient is resting, slightly propped up in bed, in no apparent distress. She continued to complain of pain in the right upper quadrant and right shoulder. Denied any nausea or vomiting. She is tolerating her clear liquid diet. PHYSICAL EXAMINATION: GENERAL: When I examined her, she looked pale. No jaundice, cyanosis, or thyromegaly. No jugular venous distension. No limb edema. VITAL SIGNS: Her heart rate was 49, blood pressure 115/51, temperature was 97.7, respiratory rate 20, and oxygen saturation was 97% on room air. HEAD, EYES, EARS, NOSE AND THROAT: Showed normocephalic, atraumatic. NECK: Supple. HEART: Showed normal first and second heart sounds. No gallop, rub or murmur. CHEST: Clear to auscultation. No crepitation or rhonchi. ABDOMEN: Distended with tenderness mostly in the right upper quadrant. There is no guarding or rigidity. No organomegaly with hernial orifices intact. Bowel sounds normal. NEUROLOGIC: She is awake, alert, at times confused, but all her cranial nerves intact. She moves extremities without difficulty. She ambulates with a walker. LABORATORY DATA: Still pending at the time of this dictation. ASSESSMENT: Right upper quadrant pain with abdominal ultrasound consistent with acute cholecystitis. She has Hernandez sign both clinically and ultrasonographically. She has other medical problems include hypothyroidism, chronic back pain, morbid obesity, degenerative joint disease, history of syncope for she has a loop recorder placed, has history of acute pancreatitis at that time. PLAN: My plan is to repeat her lab work today and await the surgical team decision regarding surgical treatment. ALEXY LIN MD DR: NATALIE/jackie JOB#: [id number] / [id number]
[2019-03-06 23:30] VITALS: BP 134/62
[2019-03-07] VITALS (13 sets, daily range): BP systolic 140–181; BP diastolic 54–89
[2019-03-07] MEDS: LEVOTHYROXINE 100 MCG TABLET PO SCH (06:08)
[2019-03-07] MEDS: PIPERACILLIN/TAZOBACTAM 2.25 GM in IV NORMAL SALINE 50ML 50 ML IV SCH ×3 (06:08→18:11)
[2019-03-07] MEDS: PANTOPRAZOLE 40 MG TABLET.DR. PO SCH (07:30)
[2019-03-07] MEDS: CALCIUM CARB/VIT D3 500/200 TABLET. PO SCH (08:00)
[2019-03-07] MEDS ORDERED: fentaNYL PF VIAL 100 MCG/2 ML VIAL ONE (08:54)
[2019-03-07] MEDS ORDERED: ROCURONIUM 50 MG/5 ML VIAL. ONE (08:54)
[2019-03-07] MEDS ORDERED: PROPOFOL 20 ML IV ONE (08:55)
[2019-03-07] MEDS ORDERED: LIDOCAINE 2% PF 5 ML VIAL. ONE (08:55)
[2019-03-07] MEDS ORDERED: NEOSTIGMINE METHYLSULFATE 5 MG/5 ML SYRINGE. ONE (08:55)
[2019-03-07] MEDS ORDERED: DEXAMETHASONE SOD PHOS 4 MG/ML VIAL ONE (08:55)
[2019-03-07] MEDS ORDERED: GLYCOPYRROLATE 1 MG/5 ML VIAL. ONE (08:55)
[2019-03-07] MEDS ORDERED: ONDANSETRON PF 4 MG/2 ML VIAL. ONE (08:55)
[2019-03-07] MEDS ORDERED: IOHEXOL 300 MG/ML 50 ML VIAL. ONE (08:59)
[2019-03-07] MEDS ORDERED: GLUCAGON,HUMAN RECOMBINANT 1 MG/ML VIAL. ONE (08:59)
[2019-03-07] MEDS ORDERED: BUPIVAC MPF-EPI 0.5%-1:200000 30 ML VIAL. ONE (08:59)
[2019-03-07] MEDS: DOCUSATE SODIUM 100 MG CAPSULE. PO SCH ×2 (09:00→21:14)
[2019-03-07] MEDS: CITALOPRAM 10 MG TABLET. PO SCH (09:00)
[2019-03-07] MEDS: LOSARTAN POTASSIUM 50 MG TABLET. PO SCH (09:00)
[2019-03-07] MEDS: MEMANTINE 5 MG TABLET. PO SCH ×2 (09:00→21:14)
[2019-03-07] MEDS ORDERED: SURGICEL HEMOSTAT 4X8 EACH. ONE (09:00)
[2019-03-07] MEDS ORDERED: IV RINGERS,LACTATED 1000ML 1,000 ML IV SCH (09:56)
[2019-03-07] MEDS ORDERED: LIDOCAINE 1% PF 2 ML VIAL. ID PRN (10:00)
[2019-03-07] MEDS ORDERED: fentaNYL PF VIAL 100 MCG/2 ML VIAL IV PRN ×2 (10:00)
[2019-03-07] MEDS ORDERED: 0.9 % SODIUM CHLORIDE 20 ML VIAL. IJ ONE (10:02)
[2019-03-07] MEDS ORDERED: MORPHINE SULFATE 10 MG/ML VIAL. ONE (10:02)
[2019-03-07] MEDS ORDERED: KETOROLAC 30 MG/ML INJ FOR OR. INJ ONE (10:17)
[2019-03-07] MEDS ORDERED: ESMOLOL 100 MG/10 ML VIAL. IVP ONE (10:48)
[2019-03-07] MEDS ORDERED: hydrALAZINE 20 MG/ML VIAL. ONE (10:49)
--- NOTE | 2019-03-07 11:43 | RAD ---
Intraoperative cholangiogram, 03/07/2019: HISTORY: Cholecystectomy 4 spot films from surgery are presented for review. 1.05 minutes of fluoroscopy time was utilized. The first 2 images were obtained at approximately 10:55 AM. Contrast has been injected into the cystic duct remnant. The common bile duct is prominent. A couple of faint lucencies are projected over the common bile duct which may represent air bubbles or calculi. No definite extension of contrast into the duodenum is seen. Two additional images were obtained at approximately 11:13 AM. Again, contrast does not extend into the duodenum. The common bile duct and intrahepatic ducts are mildly prominent. No definite intraluminal filling defect is seen, although small calculi could be obscured by the dense contrast. IMPRESSION: 1. Mild biliary ductal dilatation with transient intraluminal filling defects compatible with air bubbles versus small calculi. 2. Lack of extension of contrast into the duodenum which may be due to ampullary spasm or an obstructing process such as an impacted stone. Electronically signed by: Farhad Kendrick MD (03/07/2019 11:40 AM) [facility]– [place]
[2019-03-07] MEDS ORDERED: IPRATRPIUM/ALBUTEROL 0.5/2.5MG 3 ML NEBU. ONE (12:07)
[2019-03-07] MEDS: PROCHLORPERAZINE 10 MG/2 ML VIAL. IV PRN ×2 (12:10→13:43)
[2019-03-07] MEDS: HYDROmorphone 2 MG/ML VIAL IV PRN ×3 (12:12→21:25)
[2019-03-07] MEDS ORDERED: 0.9 % SODIUM CHLORIDE 10 ML DISP.SYRIN. IV PRN (12:15)
[2019-03-07] MEDS ORDERED: IPRATRPIUM/ALBUTEROL 0.5/2.5MG 3 ML NEBU. NEB ONE (12:15)
[2019-03-07] MEDS ORDERED: DEXTROSE 50% 25 GM / 50ML DISP.SYRIN. IV PRN (12:15)
[2019-03-07] MEDS ORDERED: ONDANSETRON PF 4 MG/2 ML VIAL. IV PRN (12:15)
--- NOTE | 2019-03-07 12:18 | PDOC ---
BRIEF OPERATIVE NOTE Date: March 07, 2019 Pre-Op Diagnosis symptomatic cholelithiasis Post-Op Diagnosis same Procedure Performed l/s cholecystectomy with SOLOMON gomez Surgeon Jeovany [employer] Alexsandra SMITH Anesthesia Type: General Blood Loss 25cc IV Fluid 800cc Specimens Obtained GB Findings no contrast into duodenum, omental adhesions Complications none KIN MEJIA MD March 07, 2019 12:18
--- NOTE | 2019-03-07 12:26 | NUR ---
SS following for discharge planning. SS reviewed pt chart. Pt is from home with family and is currently on room air. SS awaiting PT/OT orders and evaluations. No discharge needs noted at this time. SS will continue to follow for discharge planning.
[2019-03-07] MEDS ORDERED: HYDROmorphone 2 MG/ML VIAL ONE (12:32)
--- NOTE | 2019-03-07 12:52 | PN ---
DATE: 03/07/2019 SUBJECTIVE: The patient is resting, slightly propped up in bed, in no apparent distress. She continued to complain of pain in her right upper quadrant, right shoulder. Apparently, the surgical team decided to go ahead with the laparoscopic cholecystectomy today. PHYSICAL EXAMINATION: GENERAL: When I examined her, she was pale, but no jaundice, cyanosis or thyromegaly. No jugular venous distension. No lower limb edema. VITAL SIGNS: Her heart rate was 49, blood pressure was 161/74, temperature was 98.4, respiratory rate 12 and oxygen saturation was 94%. HEAD, EYES, EARS, NOSE AND THROAT: Normocephalic, atraumatic. NECK: Supple. HEART: Showed normal first and second heart sounds. No gallop, rub or murmur. CHEST: Clear to auscultation. No crepitation or rhonchi. ABDOMEN: Distended, soft, nontender, with tenderness mostly in the right upper quadrant. There is no guarding or rigidity. No organomegaly. All hernial orifice intact. Bowel sounds normal. NEUROLOGIC: She is demented, but without any obvious lateralizing sign. Her intake was 1800, output was 1350. LABORATORY DATA: As of yesterday showed a serum sodium 143, potassium 4, chloride 108, bicarbonate 22, anion gap of 13, BUN 13, creatinine 1.9. Her glucose 105, calcium was 8.3. Total bilirubin, AST, ALT, alkaline phosphatase were normal. Lactate dehydrogenase was 217, total protein was 6.1, albumin 2.9. ASSESSMENT: Right upper quadrant pain with ultrasound finding consistent with cholecystitis, scheduled for laparoscopic cholecystectomy. She has multiple other medical problems including: A. Hypothyroidism. B. Chronic back pain. C. Morbid obesity. D. Degenerative disk disease. E. History of syncope, for which she had a loop recorder placed. F. Acute pancreatitis. PLAN: My plan is obviously to continue with IV fluid, continue with IV antibiotic, and I will repeat all her labs tomorrow and decide the further management accordingly. The patient has also multiple ventral hernias, although there is no evidence of obstruction. ALEXY LIN MD DR: NATALIE/jackie JOB#: [id number] / [id number]
[2019-03-07 13:02] LABS: ALBUMIN 3.3 g/dL (3.4-5.0); CALCIUM 9.3 mg/dL (8.5-10.1); CREATININE 1.8 mg/dL (0.6-1.0); DIRECT BILIRUBIN 0.4 mg/dL (0.0-0.2); POTASSIUM 3.5 mmol/L (3.5-5.1); TOTAL BILIRUBIN 1.2 mg/dL (0.2-1.0); TOTAL PROTEIN 7.2 g/dL (6.4-8.2)
--- NOTE | 2019-03-07 13:16 | PDOC2 ---
GI CONSULT Reason For Consult: Abnormal cholangiogram HPI: HPI: 83 y/o female transferred from [facility] to [facility] over the weekend w/ severe RUQ pain and concern for cholecystitis. According to other notes, CT at [facility] showed periumbilical ventral hernias, infraumbilical hernia containing portion of SB (no obstruction), consolidation in LLL (indeterminate), mild splenomegaly, and unremarkable GB, pancreas, adrenals, and kidneys. US showed +Hernandez's sign, cholelithiasis w/ GB wall thickening and minimal pericholecystic fluid, hepatic steatosis, CBD 4.9mm and possible left complex renal cyst. She She was seen in PACU this afternoon s/p cholecystectomy w/ SOLOMON. IOC was abnormal - mild biliary ductal dilatation with transient intraluminal filling defects (c/w air bubbles vs small calculi) and lack of extension of contrast into duodenum (ampullary spasm or obstruction/impacted stone). She is drowsy (and RN suggests possible h/o dementia) - not much meaningful history from her. LFTs were normal on 03/04 except AP 119, normal again on 03/06, and today post-op bili is 1.2 w/ normal AST, ALT, and AP. H&P indicates h/o pancreatitis. PMH: PMH: per chart: HTN, SVT, hypothyroidism, chronic back pain, morbid obesity, DJD, syncope, pancreatitis, dementia tonsillectomy, loop recorder, appendectomy FH: Family History: Cancer (father) Social History: Smoke: No ALCOHOL: none Drugs: None ROS: Difficult to obtain - admits to pain. Vitals: Vitals: Vital Signs Date Time Temp Pulse Resp B/P (MAP) Pulse Ox O2 Delivery O2 Flow Rate FiO2 03/07/19 12:57 70 20 134/65 93 Nasal Cannula 3 03/07/19 11:56 97.0 97.0 Labs: Labs: Laboratory Tests Test 03/07/19 12:40 Sodium Level 141 mmol/L (136-145) Potassium Level 3.5 mmol/L (3.5-5.1) Chloride Level 105 mmol/L (98-107) Carbon Dioxide Level 23 mmol/L (21-32) Anion Gap 13 (6-14) Blood Urea Nitrogen 10 mg/dL (7-20) Creatinine 1.8 mg/dL (0.6-1.0) Estimated GFR (Cockcroft-Gault) 27.0 Glucose Level 191 mg/dL (70-99) Calcium Level 9.3 mg/dL (8.5-10.1) Total Bilirubin 1.2 mg/dL (0.2-1.0) Direct Bilirubin 0.4 mg/dL (0.0-0.2) Aspartate Amino Transf (AST/SGOT) 33 U/L (15-37) Alanine Aminotransferase (ALT/SGPT) 19 U/L (14-59) Alkaline Phosphatase 112 U/L (46-116) Total Protein 7.2 g/dL (6.4-8.2) Albumin 3.3 g/dL (3.4-5.0) Allergies: Coded Allergies: fentanyl (Verified Adverse Reaction, Severe, 03/07/19) Hallucinations Medications: Current Medications Medications (Trade) Dose Ordered Sig/Mee Route PRN Reason Start Time Stop Time Status Last Admin Dose Admin Ringer's Solution 1,000 ml @ 30 mls/hr Q24H IV 03/07/19 09:56 03/07/19 21:55 03/07/19 10:03 Bupivacaine HCl/ Epinephrine Bitart (Sensorcain-Mpf Epi 0.5%-1:[id number]) 30 ml STK-MED ONCE .ROUTE 03/07/19 08:59 03/07/19 10:00 DC 03/07/19 10:34 Glucagon (Glucagen) 1 mg STK-MED ONCE .ROUTE 03/07/19 08:59 03/07/19 10:00 DC 03/07/19 10:58 Iohexol (Omnipaque 300 Mg/ml) 50 ml STK-MED ONCE .ROUTE 03/07/19 08:59 03/07/19 10:00 DC 03/07/19 10:34 Cellulose (Surgicel Hemostat 4x8) 1 each STK-MED ONCE .ROUTE 03/07/19 09:00 03/07/19 10:00 DC 03/07/19 11:29 Albuterol/ Ipratropium (Duoneb) 3 ml 1X ONCE NEB 03/07/19 12:15 03/07/19 12:16 DC 03/07/19 12:11 Imaging: Imaging: Abd US 03/04 The pancreas is poorly visualized. There is increased echogenicity noted in the liver likely hepatic steatosis. The liver measures 17.1 cm. The common bile duct measures 4.9 mm in transverse dimension. Multiple echogenicities identified within the gallbladder likely gallstones. The gallbladder wall thickness measures 3.5 mm. Examination is positive for ultrasonographic evidence of Hernandez's sign. Minimal pericholecystic fluid is identified. The right kidney measures 9.5 x 4.9 x 4.9 cm. The left kidney measures 10.5 x 4.8 x 4.4 cm. There is a 1 cm cystic structure identified in the left kidney containing ech ogenicities could be a cyst or a complex cyst. Thinning of the bilateral renal cortices. The aorta, IVC are not well-visualized. The spleen measures 13.5 cm. IMPRESSION: 1. Cholelithiasis with thickening of the gallbladder wall and ultrasonographic evidence of Hernandez's sign with minimal pericholecystic fluid. Correlate for acute cholecystitis. 2. Hepatic steatosis. 3. 1 cm cystic structure identified in the left kidney containing echogenicity could be a complex cyst. Thinning of the bilateral renal cortices. Correlate for medical renal disease. IOC 03/07 IMPRESSION: 1. Mild biliary ductal dilatation with transient intraluminal filling defects compatible with air bubbles versus small calculi. 2. Lack of extension of contrast into the duodenum which may be due to ampullary spasm or an obstructing process such as an impacted stone. PE: GEN: NAD HEENT: Atraumatic, PERRL LUNGS: NC 3L HEART: RRR ABD: quiet, obese, soft, drain RUQ w/ tenderness EXTREMITY: No edema SKIN: No rashes, no jaundice NEURO/PSYCH: drowsy in PACU A/P: A/P: S/p cholecystectomy and SOLOMON w/ abnormal IOC - LFTs normal (bili 1.2), normal CBD on US Leukopenia, thrombocytopenia, ?CKD/JESSICA Hepatic steatosis H/o pancreatitis -- Reviewed w/ Dr. Omer - monitor labs and observe for now before pursuing ERCP - already ordered for tomorrow. D/w RNs - she has a daughter who was here today, perhaps additional history may be obtained with her help (and after pt is more awake). Will check with our office for any records. HERBIE TAO March 07, 2019 13:16
[2019-03-07 13:36] LABS: PROTHROMBIN TIME PATIENT 14.4 SEC (11.7-14.0)
[2019-03-07] MEDS: IV 1/2 NORMAL SALINE 1,000 ML IV SCH (13:56)
[2019-03-07] MEDS: NYSTATIN TOPICAL POWDER 15GM BOTTLE. TP SCH ×2 (14:05→21:19)
[2019-03-07] MEDS: IV DEXTROSE 5 %-0.45 % NACL 1,000 ML IV SCH (14:07)
--- NOTE | 2019-03-07 14:13 | NUR ---
Patient arrived back from PACU, sleepy but arousable by name. Vitals stable, JUAN drain in left quadrant, emptied 15 cc's of sanginous fluid. patient on 2L NC. 3 dressings are clean, dry and intact. Will continue to monitor.
--- NOTE | 2019-03-07 17:40 | NUR ---
Emar documentation: Morning medications non-administered since patient was NPO for surgery. Waited for patient to get back but she was too drowsy to take any medications. Offered patient clear liquid tray for dinner and patient did not want anything. Patient still drowsy but arousable to name. Will continue to monitor.
[2019-03-07] MEDS: LACTOBACILLUS RHAMNOSUS GG 1 CAPSULE. PO SCH (21:14)
[2019-03-07] MEDS: DONEPEZIL HCL 10 MG TABLET. PO SCH (21:14)
[2019-03-08] VITALS (8 sets, daily range): BP systolic 159–191; BP diastolic 66–89
[2019-03-08] MEDS: PIPERACILLIN/TAZOBACTAM 2.25 GM in IV NORMAL SALINE 50ML 50 ML IV SCH ×3 (00:20→12:20)
[2019-03-08] MEDS: IV 1/2 NORMAL SALINE 1,000 ML IV SCH ×2 (01:26→08:42)
[2019-03-08] MEDS: HYDROmorphone 2 MG/ML VIAL IV PRN ×3 (03:06→21:16)
[2019-03-08 03:35] LABS: HEMATOCRIT 36.6 % (36.0-47.0); HEMOGLOBIN 12.3 g/dL (12.0-15.5); RED BLOOD COUNT 3.87 x10^6/uL (3.50-5.40); RED CELL DISTRIBUTION WIDTH 14.6 % (11.5-14.5); WHITE BLOOD COUNT 5.5 x10^3/uL (4.0-11.0)
[2019-03-08 04:16] LABS: ALBUMIN 2.9 g/dL (3.4-5.0); ALBUMIN/GLOBULIN RATIO 0.7 (1.0-1.7); CALCIUM 8.8 mg/dL (8.5-10.1); CREATININE 1.8 mg/dL (0.6-1.0); TOTAL BILIRUBIN 1.1 mg/dL (0.2-1.0); TOTAL PROTEIN 6.8 g/dL (6.4-8.2)
[2019-03-08] MEDS: LOSARTAN POTASSIUM 50 MG TABLET. PO SCH (08:42)
[2019-03-08] MEDS: MEMANTINE 5 MG TABLET. PO SCH ×2 (08:42→21:17)
[2019-03-08] MEDS: PANTOPRAZOLE 40 MG TABLET.DR. PO SCH (08:43)
[2019-03-08] MEDS: DOCUSATE SODIUM 100 MG CAPSULE. PO SCH ×2 (08:43→21:16)
[2019-03-08] MEDS: CITALOPRAM 10 MG TABLET. PO SCH (08:43)
[2019-03-08] MEDS: LEVOTHYROXINE 100 MCG TABLET PO SCH (08:43)
[2019-03-08] MEDS: LACTOBACILLUS RHAMNOSUS GG 1 CAPSULE. PO SCH ×2 (08:43→21:17)
--- NOTE | 2019-03-08 09:41 | PDOC ---
Objective: Objective: Reviewed w/ RN - was offered clears yesterday but refused this and pills, drowsy and forgetful, daughter was briefly here yesterday. Kept NPO this morning in case need for ERCP. Vital Signs: Vital Signs Date Time Temp Pulse Resp B/P (MAP) Pulse Ox O2 Delivery O2 Flow Rate FiO2 03/08/19 08:42 72 189/74 03/08/19 08:00 Nasal Cannula 3.0 03/08/19 07:00 98.6 18 99 98.6 Labs: Laboratory Tests Test 03/07/19 12:40 03/08/19 02:30 Prothrombin Time 14.4 SEC Prothromb Time International Ratio 1.2 Sodium Level 141 mmol/L 140 mmol/L Potassium Level 3.5 mmol/L 4.0 mmol/L Chloride Level 105 mmol/L 104 mmol/L Carbon Dioxide Level 23 mmol/L 25 mmol/L Anion Gap 13 11 Blood Urea Nitrogen 10 mg/dL 12 mg/dL Creatinine 1.8 mg/dL 1.8 mg/dL Estimated GFR (Cockcroft-Gault) 27.0 27.0 Glucose Level 191 mg/dL 129 mg/dL Calcium Level 9.3 mg/dL 8.8 mg/dL Total Bilirubin 1.2 mg/dL 1.1 mg/dL Direct Bilirubin 0.4 mg/dL Aspartate Amino Transf (AST/SGOT) 33 U/L 39 U/L Alanine Aminotransferase (ALT/SGPT) 19 U/L 22 U/L Alkaline Phosphatase 112 U/L 95 U/L Total Protein 7.2 g/dL 6.8 g/dL Albumin 3.3 g/dL 2.9 g/dL White Blood Count 5.5 x10^3/uL Red Blood Count 3.87 x10^6/uL Hemoglobin 12.3 g/dL Hematocrit 36.6 % Mean Corpuscular Volume 94 fL Mean Corpuscular Hemoglobin 32 pg Mean Corpuscular Hemoglobin Concent 34 g/dL Red Cell Distribution Width 14.6 % Platelet Count 104 x10^3/uL BUN/Creatinine Ratio 7 Albumin/Globulin Ratio 0.7 Lipase 63 U/L PE: GEN: NAD - in and out of sleep LUNGS: NC 3L HEART: RRR ABD: JUAN site w/ old blood on gauze - RNs changing dressing, output bloody, some tenderness surrounding drain, lap sites less tender, abd is round and soft, quiet BS NEURO/PSYCH: probably forgetful A/P: S/p cholecystectomy and SOLOMON w/ abnormal IOC - LFTs stable (bili 1.1) Thrombocytopenia, ?CKD Hepatic steatosis, h/o pancreatitis -- Okay to offer clears again. Hold on ERCP for now, monitor labs. HERBIE TAO March 08, 2019 09:41
--- NOTE | 2019-03-08 09:46 | OP ---
DATE OF SURGERY: 03/07/2019 PREOPERATIVE DIAGNOSIS: Symptomatic cholelithiasis. POSTOPERATIVE DIAGNOSIS: Symptomatic cholelithiasis with abdominal adhesions. PROCEDURE: Laparoscopic cholecystectomy with cholangiograms, lysis of adhesions. SURGEON: Raul Mejia MD W[employer] SH[employer] CLOTH SEWER: LUIS Higgins. ANESTHESIA: General endotracheal. BLOOD LOSS: 25. INTRAVENOUS FLUID: 800. INDICATIONS: The patient is an 83-year-old with right upper quadrant pain. Ultrasound shows stones. She is brought for cholecystectomy. OPERATIVE FINDINGS: There were omental adhesions to the abdominal wall from previous procedures. The gallbladder was distended and had multiple multifaceted stones in it. DESCRIPTION OF PROCEDURE: The patient brought to the operating suite, given a general endotracheal anesthetic and the abdomen prepped and draped in usual sterile fashion. Because of midline incisional scars, a left hypochondriac location for the first port placement was chosen, infiltrated with local anesthetic, incised and a 5 mm Visiport used to safely gain access into the abdominal cavity, taking care to avoid injury to abdominal contents. Pneumoperitoneum established. Camera inserted. Inspection carried out with results as noted above. With the table in reverse Trendelenburg rolled to the left, the epigastric and midclavicular ports were placed. This facilitated take down of adhesions with LigaSure, being careful to avoid injury to the adjacent bowel. Once the right upper quadrant was adequately exposed, the lateral port was placed. The gallbladder was aspirated of approximately 70 mL of bile to allow grasping the fundus, which was then retracted superolaterally. The neck of the gallbladder was exposed and the cystic duct was identified, clipped on the gallbladder side. A small vessel immediately adjacent to the cystic duct was clipped and divided. Cholangiograms were made. These showed a slightly dilated biliary tree with no drainage of contrast into the duodenum despite the patient being given 1 mg of glucagon. In light of this, the catheter was removed. The cystic duct was clipped x 3 and divided. The cystic artery was clipped and divided and the gallbladder freed from the bed and placed in an EndoCatch bag. Hemostasis in the fossa obtained with cautery and a small piece of Surgicel. No evidence of bile leak was seen. Table returned to level. A 19-Uzbek round Abdi drain brought through the epigastric port out the lateral port, sewn to the skin with a silk stitch and left in the subhepatic space for postoperative drainage. Gallbladder delivered through the epigastric incision. Epigastric incision closed with interrupted 0 Vicryl suture. Intra-abdominal pressure decreased to 6 cm of water. No bleeding from the epigastric closure or from the midclavicular port site after its removal or from the drain site. Abdomen decompressed, camera removed, no bleeding seen. Skin incisions closed with subcuticular 4-0 Monocryl. Steri-Strips and sterile dressings applied. The patient awakened from her anesthetic and taken to the recovery room in satisfactory condition. RAUL MEJIA MD DR: KOLTON/jackie JOB#: [id number] / [id number]
[2019-03-08] MEDS: NYSTATIN TOPICAL POWDER 15GM BOTTLE. TP SCH ×2 (10:24→21:17)
[2019-03-08] MEDS: CALCIUM CARB/VIT D3 500/200 TABLET. PO SCH (10:24)
--- NOTE | 2019-03-08 11:59 | PDOC ---
[facility] COORDIN[facility] 03/08/19 1159: SURGICAL PROGRESS NOTE Subjective nausea, emesis, abdominal pain Vital Signs Vital Signs Date Time Temp Pulse Resp B/P (MAP) Pulse Ox O2 Delivery O2 Flow Rate FiO2 03/08/19 11:14 98.2 70 18 161/66 (97) 99 Nasal Cannula 3.0 98.2 I&O Intake and Output 03/08/19 07:00 Intake Total 1500 ml Output Total 431 ml Balance 1069 ml Intake Oral 300 ml IV Total 1200 ml Output Urine Total 301 ml Drainage Total 105 ml Estimated Blood Loss 25 ml # Voids 2 General: Alert, Oriented X3, Cooperative, No acute distress Abdomen: Soft, Other (drain serosang ) Labs Laboratory Tests Test 03/07/19 12:40 03/08/19 02:30 Prothrombin Time 14.4 SEC (11.7-14.0) Prothromb Time International Ratio 1.2 (0.8-1.1) Sodium Level 141 mmol/L (136-145) 140 mmol/L (136-145) Potassium Level 3.5 mmol/L (3.5-5.1) 4.0 mmol/L (3.5-5.1) Chloride Level 105 mmol/L (98-107) 104 mmol/L (98-107) Carbon Dioxide Level 23 mmol/L (21-32) 25 mmol/L (21-32) Anion Gap 13 (6-14) 11 (6-14) Blood Urea Nitrogen 10 mg/dL (7-20) 12 mg/dL (7-20) Creatinine 1.8 mg/dL (0.6-1.0) 1.8 mg/dL (0.6-1.0) Estimated GFR (Cockcroft-Gault) 27.0 27.0 Glucose Level 191 mg/dL (70-99) 129 mg/dL (70-99) Calcium Level 9.3 mg/dL (8.5-10.1) 8.8 mg/dL (8.5-10.1) Total Bilirubin 1.2 mg/dL (0.2-1.0) 1.1 mg/dL (0.2-1.0) Direct Bilirubin 0.4 mg/dL (0.0-0.2) Aspartate Amino Transf (AST/SGOT) 33 U/L (15-37) 39 U/L (15-37) Alanine Aminotransferase (ALT/SGPT) 19 U/L (14-59) 22 U/L (14-59) Alkaline Phosphatase 112 U/L (46-116) 95 U/L (46-116) Total Protein 7.2 g/dL (6.4-8.2) 6.8 g/dL (6.4-8.2) Albumin 3.3 g/dL (3.4-5.0) 2.9 g/dL (3.4-5.0) White Blood Count 5.5 x10^3/uL (4.0-11.0) Red Blood Count 3.87 x10^6/uL (3.50-5.40) Hemoglobin 12.3 g/dL (12.0-15.5) Hematocrit 36.6 % (36.0-47.0) Mean Corpuscular Volume 94 fL (79-100) Mean Corpuscular Hemoglobin 32 pg (25-35) Mean Corpuscular Hemoglobin Concent 34 g/dL (31-37) Red Cell Distribution Width 14.6 % (11.5-14.5) Platelet Count 104 x10^3/uL (140-400) BUN/Creatinine Ratio 7 (6-20) Albumin/Globulin Ratio 0.7 (1.0-1.7) Lipase 63 U/L (73-393) Laboratory Tests Test 03/07/19 12:40 03/08/19 02:30 Prothrombin Time 14.4 SEC (11.7-14.0) Prothromb Time International Ratio 1.2 (0.8-1.1) Sodium Level 141 mmol/L (136-145) 140 mmol/L (136-145) Potassium Level 3.5 mmol/L (3.5-5.1) 4.0 mmol/L (3.5-5.1) Chloride Level 105 mmol/L (98-107) 104 mmol/L (98-107) Carbon Dioxide Level 23 mmol/L (21-32) 25 mmol/L (21-32) Anion Gap 13 (6-14) 11 (6-14) Blood Urea Nitrogen 10 mg/dL (7-20) 12 mg/dL (7-20) Creatinine 1.8 mg/dL (0.6-1.0) 1.8 mg/dL (0.6-1.0) Estimated GFR (Cockcroft-Gault) 27.0 27.0 Glucose Level 191 mg/dL (70-99) 129 mg/dL (70-99) Calcium Level 9.3 mg/dL (8.5-10.1) 8.8 mg/dL (8.5-10.1) Total Bilirubin 1.2 mg/dL (0.2-1.0) 1.1 mg/dL (0.2-1.0) Direct Bilirubin 0.4 mg/dL (0.0-0.2) Aspartate Amino Transf (AST/SGOT) 33 U/L (15-37) 39 U/L (15-37) Alanine Aminotransferase (ALT/SGPT) 19 U/L (14-59) 22 U/L (14-59) Alkaline Phosphatase 112 U/L (46-116) 95 U/L (46-116) Total Protein 7.2 g/dL (6.4-8.2) 6.8 g/dL (6.4-8.2) Albumin 3.3 g/dL (3.4-5.0) 2.9 g/dL (3.4-5.0) White Blood Count 5.5 x10^3/uL (4.0-11.0) Red Blood Count 3.87 x10^6/uL (3.50-5.40) Hemoglobin 12.3 g/dL (12.0-15.5) Hematocrit 36.6 % (36.0-47.0) Mean Corpuscular Volume 94 fL (79-100) Mean Corpuscular Hemoglobin 32 pg (25-35) Mean Corpuscular Hemoglobin Concent 34 g/dL (31-37) Red Cell Distribution Width 14.6 % (11.5-14.5) Platelet Count 104 x10^3/uL (140-400) BUN/Creatinine Ratio 7 (6-20) Albumin/Globulin Ratio 0.7 (1.0-1.7) Lipase 63 U/L (73-393) Assessment/Plan s/p zoraida GI following labs continue drain antiemetics KIN MEJIA MD 03/08/19 1520: SURGICAL PROGRESS NOTE Assessment/Plan pt seen in good spirits JUAN with serosanguineous output continue supportive care CARL[facility]EL COOPER APRN March 08, 2019 11:59 KIN MEJIA MD March 08, 2019 15:20
--- NOTE | 2019-03-08 14:08 | NUR ---
SS following up with discharge planning. OT recommended usp unit. PT currently on hold. SS contacted pt's daughters to discuss discharge planning and usp unit. Pt's daughter reported that pt has always refused usp unit and will not go. They stated the same about home healthcare. They reported that all three children live close by and help care for pt at home. They reported that they are looking into hiring some help at home as well. They reported that they would discuss with pt and would contact SS to notify of there decision.
--- NOTE | 2019-03-08 18:36 | PN ---
DATE: 03/08/2019 SUBJECTIVE: The patient is resting slightly propped up in bed, in no apparent distress, awake, alert, but confused. She continued to complain of pain in her right upper quadrant. She apparently underwent laparoscopic cholecystectomy successfully as well as cholangiogram and lysis of adhesions. PHYSICAL EXAMINATION: GENERAL: When I examined her this morning, she looked pale, but no jaundice or cyanosis. No lymphadenopathy, no thyromegaly. No jugular venous distension. No limb edema. VITAL SIGNS: Her heart rate was 72, blood pressure was 189/74, temperature was 98.6, respiratory rate was 18 and oxygen saturation was 99% on 3 liters of oxygen by nasal cannula. HEAD, EYES, EARS, NOSE AND THROAT: Showed she is normocephalic, atraumatic. NECK: Supple. HEART: Showed normal first and second heart sounds. No gallop, rub or murmur. CHEST: Clear to auscultation. No crepitation or rhonchi. ABDOMEN: Distended, soft, nontender. No guarding or rigidity. No organomegaly. All hernial orifice intact. Bowel sounds normal. NEUROLOGIC: She is demented, but without any obvious lateralizing sign. All her cranial nerves intact. She moves extremities without difficulty. She ambulates with a walker. Her intake over the last 24 hours was 1700, output was 900. LABORATORY DATA: As of this morning, her white cell count was 5500, hemoglobin 12, hematocrit 36, MCV 94 and platelet count 204,000. Serum sodium 140, potassium 4, chloride 104, bicarbonate 25, anion gap of 11, BUN 12, creatinine 1.8, estimated GFR was 27 mL per minute. Her glucose was 129, calcium was 8.8. Total bilirubin 1.1. AST, ALT, alkaline phosphatase were normal. Total protein was 6.8, albumin was 2.9. Serum lipase was only 63. ASSESSMENT: 1. Acute cholecystitis, status post laparoscopic cholecystectomy with cholangiogram and lysis of adhesion. 2. She has multiple other medical problems including: A. Hypothyroidism. B. Chronic back pain. C. Morbid obesity. D. Degenerative disk disease. E. History of syncope for which she has a loop recorder placed. F. History of pancreatitis. PLAN: To continue obviously with IV fluid, IV antibiotic. She is on a clear liquid diet and will be advanced as tolerated. ALEXY LIN MD DR: Sedrick JOB#: [id number] / [id number]
[2019-03-08] MEDS: DONEPEZIL HCL 10 MG TABLET. PO SCH (21:16)
--- NOTE | 2019-03-08 23:15 | NUR ---
Patient pulled out saline lock, tip intact. Bleeding noted and stopped. Blood on gown but patient got angry with RN and refused gown / bedding change. Patine refused IV restart. Will try later.
--- NOTE | 2019-03-09 00:57 | NUR ---
Patient assisted to restroom on BSC. JUAN bulb drained and replaced to bulb suction. Gown and bedding changed. Patient declined restart of saline lock at this time. Will try later.
[2019-03-09 02:46] VITALS: BP 137/70
[2019-03-09 04:23] LABS: HEMATOCRIT 35.9 % (36.0-47.0); HEMOGLOBIN 12.4 g/dL (12.0-15.5); RED BLOOD COUNT 3.82 x10^6/uL (3.50-5.40); RED CELL DISTRIBUTION WIDTH 14.6 % (11.5-14.5); WHITE BLOOD COUNT 4.7 x10^3/uL (4.0-11.0)
[2019-03-09 04:43] LABS: ALBUMIN/GLOBULIN RATIO 0.8 (1.0-1.7); CALCIUM 9.4 mg/dL (8.5-10.1); CREATININE 1.6 mg/dL (0.6-1.0); GFR 30.9; POTASSIUM 3.7 mmol/L (3.5-5.1); TOTAL BILIRUBIN 1.3 mg/dL (0.2-1.0)
[2019-03-09] MEDS: LEVOTHYROXINE 100 MCG TABLET PO SCH (06:14)
[2019-03-09 07:58] VITALS: BP 176/88
[2019-03-09] MEDS: DOCUSATE SODIUM 100 MG CAPSULE. PO SCH ×2 (09:00→21:23)
[2019-03-09] MEDS: LACTOBACILLUS RHAMNOSUS GG 1 CAPSULE. PO SCH ×2 (09:00→21:23)
[2019-03-09] MEDS ORDERED: POTASSIUM CL 20MEQ D5-0.45NACL 1,000 ML IV SCH (10:00)
--- NOTE | 2019-03-09 10:09 | PATHOLOGY ---
[facility] Accession Number: [id number] . 01 Material submitted: . gallbladder - GALLBLADDER AND CONTENTS . 01 Clinical history: . Cholelithiasis, subacute cholecystitis . 02 Diagnosis: Gallbladder, cholecystectomy: - Chronic cholecystitis. - Cholesterolosis. - Cholelithiasis. (SKM/db; 03/08/2019) LBQ/03/08/2019 . 02 Electronically signed: . Dario Lewis MD, Pathologist NPI- [id number] . 01 Gross description: . The specimen is received in formalin, labeled "Menon, Shiela, gallbladder and contents", is a disrupted, collapsed gallbladder measuring 5.7 cm in length and 3.1 cm in maximum diameter with a jamison-yellow and dull serosa. The cystic duct region is disrupted and a discrete duct is not identified. The mucosa is jamison-brown with cholesterolosis. The wall is 0.2 cm in average thickness. Within the container there are multiple multifaceted black-yellow calculi is measuring 2.5 x 2.0 x 0.9 cm in aggregate. [employer] tissue is submitted in A1. ([facility]; 03/07/2019) SHS/SHS . 02 Pathologist provided ICD-10: K80.10, K82.4 . 02 CPT . 908759 Specimen Comment: A courtesy copy of this report has been sent to Specimen Comment: [phone], , . Specimen Comment: Report sent to ,DR LIN / DR WILLSON Performed at: [address], [place], [place] [id number] MD Raghav Euceda MD Phone: [phone] Performed at: 02 [facility] [address] [place], [place] [id number] MD Evgeny Gaviria MD Phone: [phone]
[2019-03-09] MEDS: MEMANTINE 5 MG TABLET. PO SCH ×2 (10:32→21:23)
[2019-03-09] MEDS: LOSARTAN POTASSIUM 50 MG TABLET. PO SCH (10:35)
[2019-03-09] MEDS: HYDROmorphone 2 MG/ML VIAL IV PRN (11:01)
[2019-03-09 11:33] VITALS: BP 161/83
[2019-03-09] MEDS: CALCIUM CARB/VIT D3 500/200 TABLET. PO SCH (13:10)
[2019-03-09] MEDS: CITALOPRAM 10 MG TABLET. PO SCH (13:10)
[2019-03-09] MEDS: PANTOPRAZOLE 40 MG TABLET.DR. PO SCH (13:10)
[2019-03-09] MEDS: NYSTATIN TOPICAL POWDER 15GM BOTTLE. TP SCH ×2 (13:11→21:27)
--- NOTE | 2019-03-09 13:24 | PDOC ---
Subjective: Subjective: "I don't know, I just woke up." Denies abd pain. Objective: Objective: Was confused last night and pulled out IV, family hasn't been here. Has been kept NPO since yesterday though no idea in chart. Vital Signs: Vital Signs Date Time Temp Pulse Resp B/P (MAP) Pulse Ox O2 Delivery O2 Flow Rate FiO2 03/09/19 11:33 99.2 75 20 161/83 (109) 95 Nasal Cannula 2.0 99.2 Labs: Laboratory Tests Test 03/09/19 03:15 White Blood Count 4.7 x10^3/uL Red Blood Count 3.82 x10^6/uL Hemoglobin 12.4 g/dL Hematocrit 35.9 % Mean Corpuscular Volume 94 fL Mean Corpuscular Hemoglobin 32 pg Mean Corpuscular Hemoglobin Concent 35 g/dL Red Cell Distribution Width 14.6 % Platelet Count 96 x10^3/uL Sodium Level 140 mmol/L Potassium Level 3.7 mmol/L Chloride Level 103 mmol/L Carbon Dioxide Level 27 mmol/L Anion Gap 10 Blood Urea Nitrogen 13 mg/dL Creatinine 1.6 mg/dL Estimated GFR (Cockcroft-Gault) 30.9 BUN/Creatinine Ratio 8 Glucose Level 112 mg/dL Calcium Level 9.4 mg/dL Total Bilirubin 1.3 mg/dL Aspartate Amino Transf (AST/SGOT) 34 U/L Alanine Aminotransferase (ALT/SGPT) 27 U/L Alkaline Phosphatase 96 U/L Total Protein 7.0 g/dL Albumin 3.0 g/dL Albumin/Globulin Ratio 0.8 Lipase 51 U/L PE: GEN: NAD - was asleep LUNGS: CTAB HEART: RRR ABD: S/ND/NT NEURO/PSYCH: probably confused A/P: S/p cholecystectomy and SOLOMON w/ abnormal IOC - LFTs stable Thrombocytopenia, CKD -- D/w RN - would offer clears again. HERBIE TAO March 09, 2019 13:24
--- NOTE | 2019-03-09 13:50 | PDOC ---
SURGICAL PROGRESS NOTE Subjective pleasantly confused Vital Signs Vital Signs Date Time Temp Pulse Resp B/P (MAP) Pulse Ox O2 Delivery O2 Flow Rate FiO2 03/09/19 11:33 99.2 75 20 161/83 (109) 95 Nasal Cannula 2.0 99.2 I&O Intake and Output 03/09/19 07:00 Intake Total 580.76 ml Output Total 620 ml Balance -39.24 ml Intake Oral 0 ml IV Total 580.76 ml Output Urine Total 500 ml Drainage Total 120 ml # Voids 4 # Bowel Movements 1 PATIENT HAS A WILD: No General: Alert Abdomen: Soft, No tenderness, Other (JUAN has migrated out) Labs Laboratory Tests Test 03/08/19 02:30 03/09/19 03:15 White Blood Count 5.5 x10^3/uL (4.0-11.0) 4.7 x10^3/uL (4.0-11.0) Red Blood Count 3.87 x10^6/uL (3.50-5.40) 3.82 x10^6/uL (3.50-5.40) Hemoglobin 12.3 g/dL (12.0-15.5) 12.4 g/dL (12.0-15.5) Hematocrit 36.6 % (36.0-47.0) 35.9 % (36.0-47.0) Mean Corpuscular Volume 94 fL (79-100) 94 fL (79-100) Mean Corpuscular Hemoglobin 32 pg (25-35) 32 pg (25-35) Mean Corpuscular Hemoglobin Concent 34 g/dL (31-37) 35 g/dL (31-37) Red Cell Distribution Width 14.6 % (11.5-14.5) 14.6 % (11.5-14.5) Platelet Count 104 x10^3/uL (140-400) 96 x10^3/uL (140-400) Sodium Level 140 mmol/L (136-145) 140 mmol/L (136-145) Potassium Level 4.0 mmol/L (3.5-5.1) 3.7 mmol/L (3.5-5.1) Chloride Level 104 mmol/L (98-107) 103 mmol/L (98-107) Carbon Dioxide Level 25 mmol/L (21-32) 27 mmol/L (21-32) Anion Gap 11 (6-14) 10 (6-14) Blood Urea Nitrogen 12 mg/dL (7-20) 13 mg/dL (7-20) Creatinine 1.8 mg/dL (0.6-1.0) 1.6 mg/dL (0.6-1.0) Estimated GFR (Cockcroft-Gault) 27.0 30.9 BUN/Creatinine Ratio 7 (6-20) 8 (6-20) Glucose Level 129 mg/dL (70-99) 112 mg/dL (70-99) Calcium Level 8.8 mg/dL (8.5-10.1) 9.4 mg/dL (8.5-10.1) Total Bilirubin 1.1 mg/dL (0.2-1.0) 1.3 mg/dL (0.2-1.0) Aspartate Amino Transf (AST/SGOT) 39 U/L (15-37) 34 U/L (15-37) Alanine Aminotransferase (ALT/SGPT) 22 U/L (14-59) 27 U/L (14-59) Alkaline Phosphatase 95 U/L (46-116) 96 U/L (46-116) Total Protein 6.8 g/dL (6.4-8.2) 7.0 g/dL (6.4-8.2) Albumin 2.9 g/dL (3.4-5.0) 3.0 g/dL (3.4-5.0) Albumin/Globulin Ratio 0.7 (1.0-1.7) 0.8 (1.0-1.7) Lipase 63 U/L (73-393) 51 U/L (73-393) Laboratory Tests Test 03/09/19 03:15 White Blood Count 4.7 x10^3/uL (4.0-11.0) Red Blood Count 3.82 x10^6/uL (3.50-5.40) Hemoglobin 12.4 g/dL (12.0-15.5) Hematocrit 35.9 % (36.0-47.0) Mean Corpuscular Volume 94 fL (79-100) Mean Corpuscular Hemoglobin 32 pg (25-35) Mean Corpuscular Hemoglobin Concent 35 g/dL (31-37) Red Cell Distribution Width 14.6 % (11.5-14.5) Platelet Count 96 x10^3/uL (140-400) Sodium Level 140 mmol/L (136-145) Potassium Level 3.7 mmol/L (3.5-5.1) Chloride Level 103 mmol/L (98-107) Carbon Dioxide Level 27 mmol/L (21-32) Anion Gap 10 (6-14) Blood Urea Nitrogen 13 mg/dL (7-20) Creatinine 1.6 mg/dL (0.6-1.0) Estimated GFR (Cockcroft-Gault) 30.9 BUN/Creatinine Ratio 8 (6-20) Glucose Level 112 mg/dL (70-99) Calcium Level 9.4 mg/dL (8.5-10.1) Total Bilirubin 1.3 mg/dL (0.2-1.0) Aspartate Amino Transf (AST/SGOT) 34 U/L (15-37) Alanine Aminotransferase (ALT/SGPT) 27 U/L (14-59) Alkaline Phosphatase 96 U/L (46-116) Total Protein 7.0 g/dL (6.4-8.2) Albumin 3.0 g/dL (3.4-5.0) Albumin/Globulin Ratio 0.8 (1.0-1.7) Lipase 51 U/L (73-393) Assessment/Plan POD 2 l/s KIN Bloom MD March 09, 2019 13:50
[2019-03-09 15:18] VITALS: BP 154/84
[2019-03-09 19:00] VITALS: BP 173/70
--- NOTE | 2019-03-09 19:57 | PN ---
DATE: 03/09/2019 SUBJECTIVE: The patient is resting flat, sleeping comfortably, in no apparent distress. On questioning her, denied any complaint. She apparently has vomited yesterday and was kept n.p.o. She denied any further episodes of nausea, vomiting. Nursing staff stated that she has an uneventful night. PHYSICAL EXAMINATION: GENERAL: When I examined her, she looked pale, but no jaundice, cyanosis or thyromegaly. No jugular venous distension. No lower limb edema. VITAL SIGNS: Her heart rate was 79, blood pressure was 176/88, temperature was 99, respiratory rate was 22, and oxygen saturation was 94% on 2 liters of oxygen. HEAD, EYES, EARS, NOSE AND THROAT: Showed normocephalic, atraumatic. NECK: Supple. HEART: Showed normal first and second heart sounds. No gallop, rub or murmur. CHEST: Clear to auscultation. No crepitation or rhonchi. ABDOMEN: Distended, soft, nontender. No guarding or rigidity. No organomegaly. All hernial orifices intact. Bowel sounds normal. NEUROLOGIC: She continued to have some tenderness mostly in the right upper quadrant. The JUAN drain has minimal amount. NEUROLOGIC: She is awake, alert, but confused at times. All her cranial nerves intact. She moves extremities without difficulty. Her intake over the last 24 hours was 1550, output was 413. LABORATORY DATA: As of this morning, her serum sodium was 140, potassium 3.7, chloride 103, bicarbonate 27, anion gap of 10, BUN 13, creatinine 1.6, estimated GFR was 31 mL per minute. Her glucose was 112, calcium was 9.4. Her total bilirubin is 1.3. AST, ALT, alkaline phosphatase were normal. Total protein 7, albumin 3. Her white cell count was 4700, hemoglobin 12, hematocrit 36, MCV 94 and platelet count of 96,000. ASSESSMENT: 1. Acute cholecystitis, status post laparoscopic cholecystectomy with cholangiogram and lysis of adhesions. 2. She had apparently episodes of nausea and vomiting yesterday and was kept n.p.o. overnight. 3. The patient has multiple other medical problems including: a. Hypothyroidism. b. Chronic back pain. c. Morbid obesity. d. Degenerative disk disease. e. Recurrent episode of syncope for which she has a loop recorder placed. f. History of pancreatitis. PLAN: To continue with IV fluid. We discontinued her IV antibiotic. She is n.p.o. She vomited yesterday. Awaiting the surgical team evaluation and treatment. ALEXY LIN MD DR: NATALIE/jackie JOB#: [id number] / [id number]
[2019-03-09] MEDS: DONEPEZIL HCL 10 MG TABLET. PO SCH (21:23)
[2019-03-09 23:00] VITALS: BP 152/50
[2019-03-10] VITALS (7 sets, daily range): BP systolic 102–192; BP diastolic 71–93
--- NOTE | 2019-03-10 03:49 | NUR ---
Patient refused peripheral IV after multiple attempts and anesthesia attempt. Contacted Dr. Perea and MANAV fluids. Patient later requesting pain medication and refused tylenol and agreed to IV and Janina MORRELL attempted x1 to left forearm.
[2019-03-10 03:58] LABS: CALCIUM 9.3 mg/dL (8.5-10.1); CREATININE 1.6 mg/dL (0.6-1.0); GFR 30.9; POTASSIUM 3.5 mmol/L (3.5-5.1)
[2019-03-10] MEDS: LEVOTHYROXINE 100 MCG TABLET PO SCH (05:53)
[2019-03-10] MEDS: PANTOPRAZOLE 40 MG TABLET.DR. PO SCH (08:01)
[2019-03-10] MEDS: CALCIUM CARB/VIT D3 500/200 TABLET. PO SCH (09:08)
[2019-03-10] MEDS: LACTOBACILLUS RHAMNOSUS GG 1 CAPSULE. PO SCH ×2 (09:08→20:52)
[2019-03-10] MEDS: DOCUSATE SODIUM 100 MG CAPSULE. PO SCH ×2 (09:08→20:52)
[2019-03-10] MEDS: NYSTATIN TOPICAL POWDER 15GM BOTTLE. TP SCH ×2 (09:08→20:52)
[2019-03-10] MEDS: CITALOPRAM 10 MG TABLET. PO SCH (09:08)
[2019-03-10] MEDS: MEMANTINE 5 MG TABLET. PO SCH ×2 (09:09→20:52)
[2019-03-10] MEDS: LOSARTAN POTASSIUM 50 MG TABLET. PO SCH (09:09)
--- NOTE | 2019-03-10 11:56 | PDOC ---
SURGICAL PROGRESS NOTE Subjective was sleeping awakens easily no new complaints Vital Signs Vital Signs Date Time Temp Pulse Resp B/P (MAP) Pulse Ox O2 Delivery O2 Flow Rate FiO2 03/10/19 11:00 97.6 61 16 146/71 (96) 98 Nasal Cannula 2.0 97.6 I&O Intake and Output 03/10/19 06:59 Intake Total 50 ml Output Total 0 ml Balance 50 ml Intake Oral 50 ml Output Urine Total 0 ml # Voids 1 PATIENT HAS A WILD: No General: No acute distress Abdomen: Soft, No tenderness Labs Laboratory Tests Test 03/09/19 03:15 03/10/19 03:30 White Blood Count 4.7 x10^3/uL (4.0-11.0) Red Blood Count 3.82 x10^6/uL (3.50-5.40) Hemoglobin 12.4 g/dL (12.0-15.5) Hematocrit 35.9 % (36.0-47.0) Mean Corpuscular Volume 94 fL (79-100) Mean Corpuscular Hemoglobin 32 pg (25-35) Mean Corpuscular Hemoglobin Concent 35 g/dL (31-37) Red Cell Distribution Width 14.6 % (11.5-14.5) Platelet Count 96 x10^3/uL (140-400) Sodium Level 140 mmol/L (136-145) 140 mmol/L (136-145) Potassium Level 3.7 mmol/L (3.5-5.1) 3.5 mmol/L (3.5-5.1) Chloride Level 103 mmol/L (98-107) 104 mmol/L (98-107) Carbon Dioxide Level 27 mmol/L (21-32) 28 mmol/L (21-32) Anion Gap 10 (6-14) 8 (6-14) Blood Urea Nitrogen 13 mg/dL (7-20) 17 mg/dL (7-20) Creatinine 1.6 mg/dL (0.6-1.0) 1.6 mg/dL (0.6-1.0) Estimated GFR (Cockcroft-Gault) 30.9 30.9 BUN/Creatinine Ratio 8 (6-20) Glucose Level 112 mg/dL (70-99) 89 mg/dL (70-99) Calcium Level 9.4 mg/dL (8.5-10.1) 9.3 mg/dL (8.5-10.1) Total Bilirubin 1.3 mg/dL (0.2-1.0) Aspartate Amino Transf (AST/SGOT) 34 U/L (15-37) Alanine Aminotransferase (ALT/SGPT) 27 U/L (14-59) Alkaline Phosphatase 96 U/L (46-116) Total Protein 7.0 g/dL (6.4-8.2) Albumin 3.0 g/dL (3.4-5.0) Albumin/Globulin Ratio 0.8 (1.0-1.7) Lipase 51 U/L (73-393) Laboratory Tests Test 03/10/19 03:30 Sodium Level 140 mmol/L (136-145) Potassium Level 3.5 mmol/L (3.5-5.1) Chloride Level 104 mmol/L (98-107) Carbon Dioxide Level 28 mmol/L (21-32) Anion Gap 8 (6-14) Blood Urea Nitrogen 17 mg/dL (7-20) Creatinine 1.6 mg/dL (0.6-1.0) Estimated GFR (Cockcroft-Gault) 30.9 Glucose Level 89 mg/dL (70-99) Calcium Level 9.3 mg/dL (8.5-10.1) Assessment/Plan POD 3 no surg recs home whenever Dr Perea and GI feel ready KIN MEJIA MD March 10, 2019 11:56
--- NOTE | 2019-03-10 12:14 | PDOC ---
Subjective: Subjective: Says food on tray isn't appetizing, but a sandwich and chips and iced tea sound good. Denies pain, denies dysphagia. Objective: Objective: RN called this morning asking about advancing diet, said she was tolerating clear liquids - gave okay to try. Returned later this afternoon - drinking water, not eating full liquids. Daughter was here last night asking why she didn't have an ERCP. Vital Signs: Vital Signs Date Time Temp Pulse Resp B/P (MAP) Pulse Ox O2 Delivery O2 Flow Rate FiO2 03/10/19 11:00 97.6 61 16 146/71 (96) 98 Nasal Cannula 2.0 97.6 Labs: Laboratory Tests Test 03/10/19 03:30 Sodium Level 140 mmol/L Potassium Level 3.5 mmol/L Chloride Level 104 mmol/L Carbon Dioxide Level 28 mmol/L Anion Gap 8 Blood Urea Nitrogen 17 mg/dL Creatinine 1.6 mg/dL Estimated GFR (Cockcroft-Gault) 30.9 Glucose Level 89 mg/dL Calcium Level 9.3 mg/dL PE: GEN: NAD LUNGS: CTAB HEART: RRR ABD: S/ND/NT NEURO/PSYCH: A & O 3 A/P: S/p cholecystectomy and SOLOMON w/ abnormal IOC - LFTs have been stable (checked yesterday) -- No plans for ERCP w/ normal/stable LFTs. Await response to sandwich like she requested. HERBIE TAO March 10, 2019 12:14
--- NOTE | 2019-03-10 13:07 | NUR ---
SS following up with discharge planning. SS met with pt in room to revisit discharge planning and penitentiary unit vs home healthcare. Pt declining penitentiary unit at this time. Pt reported that her family takes care of her at home and she will discharge to home under the care of her family. SS discussed home healthcare options with pt and pt reported that she did not feel that home healthcare was necessary. She reported that she has had it in the past and would rather her family care for her needs. Pt's RN notified.
[2019-03-10] MEDS ORDERED: POLYETHYLENE GLYCOL 3350 17 GM PACKET. PO PRN (13:45)
[2019-03-10] MEDS: HYDROmorphone 2 MG/ML VIAL IV PRN (19:39)
[2019-03-10] MEDS: DONEPEZIL HCL 10 MG TABLET. PO SCH (20:52)
--- NOTE | 2019-03-11 00:08 | PN ---
DATE: 03/10/2019 SUBJECTIVE: The patient is resting, slightly propped up in bed, sleeping comfortably in no apparent distress. On questioning her, she denied any complaints. The nursing staff said that her diet was advanced to full liquid diet. She has worked with physical therapy. PHYSICAL EXAMINATION: GENERAL: When I examined her, she looked pale, but no jaundice, cyanosis, or thyromegaly. No jugular venous distension. No lower limb edema. VITAL SIGNS: Her heart rate was 62, blood pressure was 158/78, temperature was 97.8, respiratory rate was 18 and oxygen saturation was 99% on 2 liters of oxygen. HEAD, EYES, EARS, NOSE AND THROAT: Showed normocephalic, atraumatic. NECK: Supple. HEART: Showed normal first and second heart sounds. No gallop, rub or murmur. CHEST: Clear to auscultation. No crepitation or rhonchi. ABDOMEN: Distended, soft, nontender. No guarding or rigidity. No organomegaly. All hernial orifices intact. Bowel sounds normal. NEUROLOGIC: She is awake, alert, responding appropriately. All cranial nerves intact. She moves all extremities without difficulty. Her intake over the last 24 hours was 580, output was 620. LABORATORY DATA: As of yesterday showed a white cell count 4700, hemoglobin 12, hematocrit 36, MCV 94 and platelet count of 96,000. Her chemistry this morning showed a serum sodium 140, potassium 3.5, chloride 104, bicarbonate 28, anion gap of 8, BUN 17, creatinine 1.6, estimated GFR was 51 mL per minute. Her glucose was 89 and calcium was 9.3. ASSESSMENT: 1. Acute cholecystitis status post laparoscopic cholecystectomy with cholangiogram and lysis of adhesions. 2. She has apparently episodes of nausea and vomiting. However, she is now tolerating her clear liquid diet. 3. The patient has multiple other medical problems including: a. Hypothyroidism. b. Chronic back pain. c. Morbid obesity. d. Degenerative disk disease. e. Recurrent episode of syncope for which she has a loop recorder placed. f. History of pancreatitis. PLAN: To advance diet as tolerated. Continue with physical and occupational therapy. ALEXY LIN MD DR: NATALIE/jackie JOB#: [id number] / [id number]
[2019-03-11 03:45] VITALS: BP 172/61
[2019-03-11] MEDS: LEVOTHYROXINE 100 MCG TABLET PO SCH (05:01)
[2019-03-11 07:00] VITALS: BP 140/63
[2019-03-11] MEDS ORDERED: IV RINGERS,LACTATED 1000ML 1,000 ML IV SCH (07:00)
[2019-03-11] MEDS: PANTOPRAZOLE 40 MG TABLET.DR. PO SCH (07:16)
[2019-03-11] MEDS: CALCIUM CARB/VIT D3 500/200 TABLET. PO SCH (07:17)
[2019-03-11] MEDS ORDERED: LIDOCAINE 2% PF 5 ML VIAL. ONE (10:34)
[2019-03-11] MEDS ORDERED: PROPOFOL 20 ML IV ONE (10:34)
[2019-03-11 11:00] VITALS: BP 140/63
--- NOTE | 2019-03-11 11:01 | PDOC4 ---
Operative Note Operative Note EGD with dilation Meds propofol per anesthesia Pre-op dx n/v s/p zoraida Post-o dx pyloric stenosis s/p 15 mm balloon dilation Plan resume meds and diet Acid suppressive therapy fci Consider surgery if pyloric stenosis recurs s/p dilation RAJESH SCHULTZ MD March 11, 2019 11:01
--- NOTE | 2019-03-11 11:29 | PDOC ---
Provider Note Provider Note SURG d/w Dr Perea I am out of town thursday Dr Trejo is available in my absence if needed KIN MEJIA MD March 11, 2019 11:29
[2019-03-11] MEDS: MEMANTINE 5 MG TABLET. PO SCH ×2 (11:46→21:33)
[2019-03-11] MEDS: DOCUSATE SODIUM 100 MG CAPSULE. PO SCH ×2 (11:46→21:33)
[2019-03-11] MEDS: LACTOBACILLUS RHAMNOSUS GG 1 CAPSULE. PO SCH ×2 (11:46→21:33)
[2019-03-11] MEDS: LOSARTAN POTASSIUM 50 MG TABLET. PO SCH (11:46)
[2019-03-11] MEDS: CITALOPRAM 10 MG TABLET. PO SCH (11:46)
[2019-03-11] MEDS: POLYETHYLENE GLYCOL 3350 17 GM PACKET. PO SCH (11:46)
[2019-03-11] MEDS: NYSTATIN TOPICAL POWDER 15GM BOTTLE. TP SCH ×2 (11:46→21:00)
--- NOTE | 2019-03-11 13:32 | PN ---
DATE: 03/11/2019 SUBJECTIVE: The patient is resting, slightly propped up, sleeping comfortably, in no apparent distress. On questioning her, she denied any complaints, in particular denied any nausea or vomiting. Denied abdominal pain; however, she continued to have anorexia and poor appetite. She apparently is scheduled for upper GI endoscopy. PHYSICAL EXAMINATION: GENERAL: When I examined her, she looked pale, but no jaundice, cyanosis, or thyromegaly. No jugular venous distension. No limb edema. VITAL SIGNS: Her heart rate was 67, blood pressure was 142/61, temperature was 98.4, respiratory rate was 16, and oxygen saturation was 95% on 2 liters of oxygen. The rest of clinical examination was stable, has not really changed. Her intake and output were incompletely recorded. LABORATORY DATA: No lab work was done. As of yesterday, her serum sodium was 140, potassium 3.5, chloride 104, bicarbonate 28, anion gap 8, BUN 17, creatinine 1.6, and estimated GFR was 30 mL per minute. Her glucose was 89 and calcium was 9.3. Her white cell count was 4700, hemoglobin 12, hematocrit 36, MCV 94 and platelet count of 96,000. ASSESSMENT: 1. Acute cholecystitis, status post laparoscopic cholecystectomy with cholangiogram and lysis of adhesions. 2. She has apparently an episode of nausea, vomiting; however, she was tolerating yesterday clear liquid diet; however, continued to have extremely poor appetite and she is scheduled for upper GI endoscopy. 3. The patient has multiple other medical problems including: A. Hypothyroidism. B. Chronic back pain. C. Morbid obesity. D. Degenerative disk disease. E. Recurrent episode of syncope for which she has a loop recorder placed. F. History of pancreatitis. PLAN: To obviously await outcome of esophagogastroduodenoscopy. ALEXY LIN MD DR: NATALIE/jackie JOB#: [id number] / [id number]
[2019-03-11 15:00] VITALS: BP 164/61
[2019-03-11 19:53] VITALS: BP 163/63
[2019-03-11] MEDS: ACETAMINOPHEN 325 MG TABLET. PO PRN (21:32)
[2019-03-11] MEDS: DONEPEZIL HCL 10 MG TABLET. PO SCH (21:33)
[2019-03-11 23:15] VITALS: BP 184/63
[2019-03-12] VITALS (7 sets, daily range): BP systolic 91–165; BP diastolic 56–72
--- NOTE | 2019-03-12 02:10 | NUR ---
Patient is refusing Iv access and cardiac monitoring. Wishes to be sent home and " left alone". Side rails in place, call light within reach, bed alarmed. Will continue to monitor
[2019-03-12] MEDS: LEVOTHYROXINE 100 MCG TABLET PO SCH (06:00)
[2019-03-12 07:43] LABS: HEMOGLOBIN 10.6 g/dL (12.0-15.5); RED BLOOD COUNT 3.33 x10^6/uL (3.50-5.40); RED CELL DISTRIBUTION WIDTH 14.2 % (11.5-14.5); WHITE BLOOD COUNT 2.6 x10^3/uL (4.0-11.0)
[2019-03-12 08:03] LABS: ALBUMIN 2.5 g/dL (3.4-5.0); ALBUMIN/GLOBULIN RATIO 0.7 (1.0-1.7); CALCIUM 8.5 mg/dL (8.5-10.1); CREATININE 1.4 mg/dL (0.6-1.0); GFR 36.1; POTASSIUM 3.1 mmol/L (3.5-5.1); TOTAL BILIRUBIN 1.5 mg/dL (0.2-1.0); TOTAL PROTEIN 6.2 g/dL (6.4-8.2)
[2019-03-12] MEDS: POLYETHYLENE GLYCOL 3350 17 GM PACKET. PO SCH ×2 (09:00→10:01)
[2019-03-12] MEDS: CALCIUM CARB/VIT D3 500/200 TABLET. PO SCH (10:00)
[2019-03-12] MEDS: PANTOPRAZOLE 40 MG TABLET.DR. PO SCH (10:00)
[2019-03-12] MEDS: CITALOPRAM 10 MG TABLET. PO SCH (10:00)
[2019-03-12] MEDS: MEMANTINE 5 MG TABLET. PO SCH ×2 (10:00→20:54)
[2019-03-12] MEDS: LOSARTAN POTASSIUM 50 MG TABLET. PO SCH (10:00)
[2019-03-12] MEDS: LACTOBACILLUS RHAMNOSUS GG 1 CAPSULE. PO SCH ×2 (10:00→20:54)
[2019-03-12] MEDS: DOCUSATE SODIUM 100 MG CAPSULE. PO SCH ×2 (10:00→20:54)
[2019-03-12] MEDS: NYSTATIN TOPICAL POWDER 15GM BOTTLE. TP SCH ×2 (10:01→20:54)
[2019-03-12] MEDS: POTASSIUM CHLORIDE 20 MEQ TABLET.ER. PO SCH ×2 (12:50→17:15)
--- NOTE | 2019-03-12 13:15 | NUR ---
Transfer: Report called to PETROS Solorzano. Patient's belongings with patient. Chart sent with patient. Patient transferred from room 204 to room 404.
--- NOTE | 2019-03-12 16:04 | PDOC ---
Subjective: Subjective: Tolerating cardiac diet with snacks Objective: Vital Signs: Vital Signs Date Time Temp Pulse Resp B/P (MAP) Pulse Ox O2 Delivery O2 Flow Rate FiO2 03/12/19 15:00 98.2 58 18 150/56 (87) 96 Room Air 98.2 03/11/19 10:55 2 Labs: Laboratory Tests Test 03/12/19 07:00 White Blood Count 2.6 x10^3/uL (4.0-11.0) Red Blood Count 3.33 x10^6/uL (3.50-5.40) Hemoglobin 10.6 g/dL (12.0-15.5) Hematocrit 31.0 % (36.0-47.0) Mean Corpuscular Volume 93 fL (79-100) Mean Corpuscular Hemoglobin 32 pg (25-35) Mean Corpuscular Hemoglobin Concent 34 g/dL (31-37) Red Cell Distribution Width 14.2 % (11.5-14.5) Platelet Count 105 x10^3/uL (140-400) Erythrocyte Sedimentation Rate 73 (0-25) Sodium Level 142 mmol/L (136-145) Potassium Level 3.1 mmol/L (3.5-5.1) Chloride Level 105 mmol/L (98-107) Carbon Dioxide Level 28 mmol/L (21-32) Anion Gap 9 (6-14) Blood Urea Nitrogen 17 mg/dL (7-20) Creatinine 1.4 mg/dL (0.6-1.0) Estimated GFR (Cockcroft-Gault) 36.1 BUN/Creatinine Ratio 12 (6-20) Glucose Level 86 mg/dL (70-99) Calcium Level 8.5 mg/dL (8.5-10.1) Total Bilirubin 1.5 mg/dL (0.2-1.0) Aspartate Amino Transf (AST/SGOT) 54 U/L (15-37) Alanine Aminotransferase (ALT/SGPT) 40 U/L (14-59) Alkaline Phosphatase 136 U/L (46-116) Lactate Dehydrogenase 205 U/L (81-234) C-Reactive Protein, Quantitative 43.5 mg/L (0-3.3) Total Protein 6.2 g/dL (6.4-8.2) Albumin 2.5 g/dL (3.4-5.0) Albumin/Globulin Ratio 0.7 (1.0-1.7) Lipase 149 U/L (73-393) Physical Exam: Physical Exam: GEN: NAD HEENT: OP clear CV: S1S2 without murmurs, rubs, or gallops RESP: CTAB without wheezing, rhonchi, or crackles ABD: NABS, SNT/ND EXT: No edema NEURO: AAO x 3 Assessment & Plan: Assessment : A) 1)pyloric stenosis s/p 15 mm balloon dilation 2) R sided abd pain Plan: Plan resume meds and diet Acid suppressive therapy skilled nursing Consider surgery if pyloric stenosis recurs s/p dilation MARIO BACK MD March 12, 2019 16:04
[2019-03-12] MEDS: HYDROmorphone 2 MG/ML VIAL IV PRN (17:16)
[2019-03-12] MEDS: ACETAMINOPHEN 325 MG TABLET. PO PRN (17:19)
[2019-03-12] MEDS: HYDROcodone/APAP 5/325MG 1 TAB TABLET PO PRN (20:14)
[2019-03-12] MEDS: DONEPEZIL HCL 10 MG TABLET. PO SCH (20:54)
--- NOTE | 2019-03-12 20:54 | PN ---
DATE: 03/12/2019 SUBJECTIVE: The patient is resting flat on the bed comfortably, in no apparent distress, sleepy, but arousable. On questioning her, denied any complaint in particular denied any nausea or vomiting. Denied any abdominal pain. She apparently underwent esophagogastroduodenoscopy and was diagnosed with pyloric stenosis, status post 15 mm balloon dilatation. The manager fitness recommended to resume her medication and diet, to continue with acid suppressive therapy, charge lpn and to consider surgery for pyloric stenosis repair, status post dilatation. PHYSICAL EXAMINATION: GENERAL: When I examined her this morning, she was pale, but no jaundice, cyanosis, or thyromegaly. No jugular venous distension. No lower limb edema. VITAL SIGNS: Her heart rate was 56, blood pressure 158/59, temperature was 97.8, respiratory rate was 16 and oxygen saturation was 94% on room air. HEAD, EYES, EARS, NOSE AND THROAT: Showed normocephalic and atraumatic. NECK: Supple. HEART: Showed normal first and second heart sounds. No gallop, rub or murmur. CHEST: Clear to auscultation. No crepitation or rhonchi. ABDOMEN: Distended, soft and nontender. No guarding or rigidity. No organomegaly. All hernial orifices are intact. Bowel sounds are normal. NEUROLOGIC: She is awake, alert and responding appropriately. All cranial nerves are intact. She moves extremities without difficulty. Her intake and output were incompletely recorded. LABORATORY DATA: Her lab work this morning showed a white cell count of 2600, hemoglobin 11, hematocrit 31, MCV 93 and platelet count of 105,000. Sed rate was 73 mmHg. Her serum sodium was 142, potassium 3.1, chloride 105, bicarbonate 28, anion gap of 9, BUN 17, creatinine 1.4, estimated GFR was 36 mL per minute, her glucose was 86, calcium was 8.5. Her total bilirubin, AST, ALT were normal. Alkaline phosphatase was high. Her lactate dehydrogenase was 205. C-reactive protein was 43.5 mg/dL. Total protein was 6.5, albumin 2.5 and lipase was 149. ASSESSMENT: 1. Symptomatic cholelithiasis, status post laparoscopic cholecystectomy with cholangiogram and lysis of adhesion. 2. The patient has recurrent episode of nausea and vomiting for which she underwent upper GI endoscopy showed that she has pyloric stenosis, status post dilatation. 3. The patient has multiple other medical problems including: A. Hypothyroidism. B. Chronic back pain. C. Morbid obesity. D. Degenerative disk disease. E. She had recurrent episodes of syncope for which she has a loop recorder placed. F. History of pancreatitis. PLAN: To advance the diet as tolerated. Continue with physical and occupational therapy and the patient can be transferred to a monitored bed upstairs and hopefully we can discharge her to a [facility] facility or a swing bed at [facility] on Thursday. ALEXY LIN MD DR: NATALIE/jackie JOB#: [id number] / [id number]
[2019-03-12] MEDS ORDERED: LORazepam 0.5 MG TABLET PO PRN (21:45)
[2019-03-12] MEDS: MORPHINE SULFATE 4 MG/ML VIAL. IV PRN (22:10)
[2019-03-13 02:51] VITALS: BP 142/65
[2019-03-13] MEDS: LEVOTHYROXINE 100 MCG TABLET PO SCH (06:26)
[2019-03-13] MEDS: PANTOPRAZOLE 40 MG TABLET.DR. PO SCH (06:29)
[2019-03-13 07:00] VITALS: BP 140/45
[2019-03-13 07:21] LABS: CALCIUM 8.4 mg/dL (8.5-10.1); CREATININE 1.4 mg/dL (0.6-1.0); GFR 36.1; POTASSIUM 3.2 mmol/L (3.5-5.1)
[2019-03-13] MEDS: POLYETHYLENE GLYCOL 3350 17 GM PACKET. PO SCH (07:58)
[2019-03-13] MEDS: CALCIUM CARB/VIT D3 500/200 TABLET. PO SCH (07:59)
[2019-03-13] MEDS: CITALOPRAM 10 MG TABLET. PO SCH (07:59)
[2019-03-13] MEDS: LACTOBACILLUS RHAMNOSUS GG 1 CAPSULE. PO SCH ×2 (07:59→19:57)
[2019-03-13] MEDS: POTASSIUM CHLORIDE 20 MEQ TABLET.ER. PO SCH ×3 (07:59→17:15)
[2019-03-13] MEDS: DOCUSATE SODIUM 100 MG CAPSULE. PO SCH ×2 (07:59→19:58)
[2019-03-13] MEDS: LOSARTAN POTASSIUM 50 MG TABLET. PO SCH (08:00)
[2019-03-13] MEDS: MEMANTINE 5 MG TABLET. PO SCH ×2 (08:00→19:58)
--- NOTE | 2019-03-13 10:56 | PDOC ---
Subjective: Subjective: Tolerated diet yesterday. Had some nausea and got Zofran, but no emesis Objective: Vital Signs: Vital Signs Date Time Temp Pulse Resp B/P (MAP) Pulse Ox O2 Delivery O2 Flow Rate FiO2 03/13/19 08:00 Room Air 03/13/19 08:00 53 140/45 03/13/19 07:00 98.0 18 93 98.0 Labs: Laboratory Tests Test 03/13/19 05:00 Sodium Level 142 mmol/L (136-145) Potassium Level 3.2 mmol/L (3.5-5.1) Chloride Level 106 mmol/L (98-107) Carbon Dioxide Level 29 mmol/L (21-32) Anion Gap 7 (6-14) Blood Urea Nitrogen 15 mg/dL (7-20) Creatinine 1.4 mg/dL (0.6-1.0) Estimated GFR (Cockcroft-Gault) 36.1 Glucose Level 96 mg/dL (70-99) Calcium Level 8.4 mg/dL (8.5-10.1) Physical Exam: Physical Exam: GEN: NAD HEENT: OP clear CV: S1S2 without murmurs, rubs, or gallops RESP: CTAB without wheezing, rhonchi, or crackles ABD: NABS, SNT/ND EXT: No edema NEURO: AAO x 3 Assessment & Plan: Assessment : A) 1)pyloric stenosis s/p 15 mm balloon dilation 2) R sided abd pain Plan: Plan resume meds and diet Acid suppressive therapy [facility] Consider surgery if pyloric stenosis recurs s/p dilation MARIO BACK MD March 13, 2019 10:56
[2019-03-13 11:00] VITALS: BP 148/70
[2019-03-13] MEDS: NYSTATIN TOPICAL POWDER 15GM BOTTLE. TP SCH ×2 (12:00→19:58)
[2019-03-13] MEDS ORDERED: POTASSIUM CHLORIDE 20 MEQ TABLET.ER. PO SCH (14:00)
[2019-03-13 15:00] VITALS: BP 135/58
[2019-03-13 19:15] VITALS: BP 136/54
[2019-03-13] MEDS: DONEPEZIL HCL 10 MG TABLET. PO SCH (19:58)
[2019-03-13 23:14] VITALS: BP 134/60
--- NOTE | 2019-03-14 00:04 | PN ---
DATE: 03/13/2019 SUBJECTIVE: The patient is resting, slightly propped up, sleeping comfortably, in no apparent distress. She apparently has been complaining of lots of pain at night time that required IV morphine. Unfortunately, she is owning and pulled her IV line. When I saw her this morning, she says her pain is much better, although continue to have tenderness mostly the right upper quadrant. She apparently has been able to eat and drink without any nausea, vomiting, although she normally does not eat any breakfast. PHYSICAL EXAMINATION: GENERAL: When I examined her this morning, she looked well and was clearly in no apparent respiratory distress, pale. No jaundice, cyanosis, or thyromegaly. No jugular venous distension. No limb edema. VITAL SIGNS: Her heart rate was 53, blood pressure was 140/45, temperature was 98, respiratory rate was 18 and oxygen saturation was 93% on room air. HEAD, EYES, EARS, NOSE AND THROAT: Normocephalic, atraumatic. NECK: Supple. HEART: Showed normal first and second heart sounds. No gallop, rub or murmur. CHEST: Clear to auscultation. No crepitation or rhonchi. ABDOMEN: Distended, soft with tenderness mostly in the right upper quadrant. There is no guarding or rigidity. No organomegaly. All hernial orifices intact. Bowel sounds normal. NEUROLOGIC: She is awake, alert, at times confused. All her cranial nerves intact. She moves extremities without difficulty. She is actually able to ambulate with 1-person assist without difficulty. Her intake over the last 24 hours was 400, no output was recorded. LABORATORY DATA: As of this morning, her serum sodium 142, potassium 3.2, chloride 106, bicarbonate 29, anion gap of 7, BUN 15, creatinine 1.4, estimated GFR was 86 mL per minute. Her glucose was 96, calcium was 8.4. ASSESSMENT: 1. Symptomatic cholelithiasis, status post laparoscopic cholecystectomy with cholangiogram and lysis of adhesions. 2. The patient has recurrent episode of nausea and vomiting for which she underwent upper GI endoscopy, showed that she had pyloric stenosis, status post dilatation. 3. The patient has multiple other medical problems including: A. Hypothyroidism. B. Chronic back pain. C. Morbid obesity. D. Degenerative disk disease. E. She has recurrent episodes of syncope for which she has a loop recorder placed. F. History of pancreatitis. 4. Hypokalemia, for which I will start her on oral potassium. I will repeat all her lab works again tomorrow. ALEXY LIN MD DR: NATALIE/jackie JOB#: [id number] / [id number]
[2019-03-14] MEDS: HYDROcodone/APAP 5/325MG 1 TAB TABLET PO PRN ×2 (00:13→20:43)
[2019-03-14 02:52] VITALS: BP 128/64
[2019-03-14 04:53] LABS: BASO % 1 % (0-3); EOS # 0.2 x10^3/uL (0.0-0.7); EOS % 8 % (0-3); HEMATOCRIT 30.8 % (36.0-47.0); HEMOGLOBIN 10.5 g/dL (12.0-15.5); LYMPH # 0.8 x10^3/uL (1.0-4.8); LYMPH % 27 % (24-48); MEAN CORPUSCULAR HEMOGLOBIN 32 pg (25-35); MEAN CORPUSCULAR HGB CONC 34 g/dL (31-37); MEAN CORPUSCULAR VOLUME 94 fL (79-100); MONO # 0.3 x10^3/uL (0.0-1.1); MONO % 9 % (0-9); NEUT # 1.6 x10^3uL (1.8-7.7); NEUT % 56 % (31-73); PLATELET COUNT 103 x10^3/uL (140-400); RED BLOOD COUNT 3.28 x10^6/uL (3.50-5.40); RED CELL DISTRIBUTION WIDTH 14.4 % (11.5-14.5); WHITE BLOOD COUNT 2.9 x10^3/uL (4.0-11.0)
[2019-03-14 05:26] LABS: ALBUMIN 2.3 g/dL (3.4-5.0); ALBUMIN/GLOBULIN RATIO 0.7 (1.0-1.7); CALCIUM 8.5 mg/dL (8.5-10.1); CREATININE 1.4 mg/dL (0.6-1.0); GFR 36.1; POTASSIUM 3.6 mmol/L (3.5-5.1); TOTAL BILIRUBIN 0.9 mg/dL (0.2-1.0); TOTAL PROTEIN 5.8 g/dL (6.4-8.2)
[2019-03-14] MEDS: PANTOPRAZOLE 40 MG TABLET.DR. PO SCH (06:16)
[2019-03-14] MEDS: LEVOTHYROXINE 100 MCG TABLET PO SCH (06:16)
[2019-03-14 07:00] VITALS: BP 154/48
[2019-03-14] MEDS: POLYETHYLENE GLYCOL 3350 17 GM PACKET. PO SCH (08:25)
[2019-03-14] MEDS: NYSTATIN TOPICAL POWDER 15GM BOTTLE. TP SCH ×2 (08:25→20:44)
[2019-03-14] MEDS: LOSARTAN POTASSIUM 50 MG TABLET. PO SCH (08:27)
[2019-03-14] MEDS: CITALOPRAM 10 MG TABLET. PO SCH (08:27)
[2019-03-14] MEDS: POTASSIUM CHLORIDE 10 MEQ TABLET.ER. PO SCH ×3 (08:27→17:02)
[2019-03-14] MEDS: DOCUSATE SODIUM 100 MG CAPSULE. PO SCH ×2 (08:27→20:43)
[2019-03-14] MEDS: CALCIUM CARB/VIT D3 500/200 TABLET. PO SCH (08:27)
[2019-03-14] MEDS: LACTOBACILLUS RHAMNOSUS GG 1 CAPSULE. PO SCH ×2 (08:27→20:43)
[2019-03-14] MEDS: MEMANTINE 5 MG TABLET. PO SCH ×2 (08:28→20:43)
--- NOTE | 2019-03-14 08:30 | NUR ---
Pt. in bed, stated she was ready to take am meds and eat breakfast approx. 0825. All meds scanned and saved. Pt. now refusing to take am meds, stated "I want to sleep". Will reassess at a later time.
--- NOTE | 2019-03-14 09:43 | NUR ---
Pt now agreeable to take am meds. meds swallowed without difficulty.
[2019-03-14 11:00] VITALS: BP 119/52
--- NOTE | 2019-03-14 14:36 | PDOC ---
G I PROGRESS NOTE Subjective Dislikes the food, but eating. Physical Exam Lungs clear. RRR Abdomen soft, not distended. Review of Relevant I have reviewed the following items laurent (where applicable) has been applied. Labs Laboratory Tests Test 03/13/19 05:00 03/14/19 03:55 Sodium Level 142 mmol/L (136-145) 142 mmol/L (136-145) Potassium Level 3.2 mmol/L (3.5-5.1) 3.6 mmol/L (3.5-5.1) Chloride Level 106 mmol/L (98-107) 105 mmol/L (98-107) Carbon Dioxide Level 29 mmol/L (21-32) 29 mmol/L (21-32) Anion Gap 7 (6-14) 8 (6-14) Blood Urea Nitrogen 15 mg/dL (7-20) 14 mg/dL (7-20) Creatinine 1.4 mg/dL (0.6-1.0) 1.4 mg/dL (0.6-1.0) Estimated GFR (Cockcroft-Gault) 36.1 36.1 Glucose Level 96 mg/dL (70-99) 88 mg/dL (70-99) Calcium Level 8.4 mg/dL (8.5-10.1) 8.5 mg/dL (8.5-10.1) White Blood Count 2.9 x10^3/uL (4.0-11.0) Red Blood Count 3.28 x10^6/uL (3.50-5.40) Hemoglobin 10.5 g/dL (12.0-15.5) Hematocrit 30.8 % (36.0-47.0) Mean Corpuscular Volume 94 fL (79-100) Mean Corpuscular Hemoglobin 32 pg (25-35) Mean Corpuscular Hemoglobin Concent 34 g/dL (31-37) Red Cell Distribution Width 14.4 % (11.5-14.5) Platelet Count 103 x10^3/uL (140-400) Neutrophils (%) (Auto) 56 % (31-73) Lymphocytes (%) (Auto) 27 % (24-48) Monocytes (%) (Auto) 9 % (0-9) Eosinophils (%) (Auto) 8 % (0-3) Basophils (%) (Auto) 1 % (0-3) Neutrophils # (Auto) 1.6 x10^3uL (1.8-7.7) Lymphocytes # (Auto) 0.8 x10^3/uL (1.0-4.8) Monocytes # (Auto) 0.3 x10^3/uL (0.0-1.1) Eosinophils # (Auto) 0.2 x10^3/uL (0.0-0.7) Basophils # (Auto) 0.0 x10^3/uL (0.0-0.2) BUN/Creatinine Ratio 10 (6-20) Total Bilirubin 0.9 mg/dL (0.2-1.0) Aspartate Amino Transf (AST/SGOT) 53 U/L (15-37) Alanine Aminotransferase (ALT/SGPT) 53 U/L (14-59) Alkaline Phosphatase 147 U/L (46-116) Total Protein 5.8 g/dL (6.4-8.2) Albumin 2.3 g/dL (3.4-5.0) Albumin/Globulin Ratio 0.7 (1.0-1.7) Lipase 206 U/L (73-393) Laboratory Tests Test 03/14/19 03:55 White Blood Count 2.9 x10^3/uL (4.0-11.0) Red Blood Count 3.28 x10^6/uL (3.50-5.40) Hemoglobin 10.5 g/dL (12.0-15.5) Hematocrit 30.8 % (36.0-47.0) Mean Corpuscular Volume 94 fL (79-100) Mean Corpuscular Hemoglobin 32 pg (25-35) Mean Corpuscular Hemoglobin Concent 34 g/dL (31-37) Red Cell Distribution Width 14.4 % (11.5-14.5) Platelet Count 103 x10^3/uL (140-400) Neutrophils (%) (Auto) 56 % (31-73) Lymphocytes (%) (Auto) 27 % (24-48) Monocytes (%) (Auto) 9 % (0-9) Eosinophils (%) (Auto) 8 % (0-3) Basophils (%) (Auto) 1 % (0-3) Neutrophils # (Auto) 1.6 x10^3uL (1.8-7.7) Lymphocytes # (Auto) 0.8 x10^3/uL (1.0-4.8) Monocytes # (Auto) 0.3 x10^3/uL (0.0-1.1) Eosinophils # (Auto) 0.2 x10^3/uL (0.0-0.7) Basophils # (Auto) 0.0 x10^3/uL (0.0-0.2) Sodium Level 142 mmol/L (136-145) Potassium Level 3.6 mmol/L (3.5-5.1) Chloride Level 105 mmol/L (98-107) Carbon Dioxide Level 29 mmol/L (21-32) Anion Gap 8 (6-14) Blood Urea Nitrogen 14 mg/dL (7-20) Creatinine 1.4 mg/dL (0.6-1.0) Estimated GFR (Cockcroft-Gault) 36.1 BUN/Creatinine Ratio 10 (6-20) Glucose Level 88 mg/dL (70-99) Calcium Level 8.5 mg/dL (8.5-10.1) Total Bilirubin 0.9 mg/dL (0.2-1.0) Aspartate Amino Transf (AST/SGOT) 53 U/L (15-37) Alanine Aminotransferase (ALT/SGPT) 53 U/L (14-59) Alkaline Phosphatase 147 U/L (46-116) Total Protein 5.8 g/dL (6.4-8.2) Albumin 2.3 g/dL (3.4-5.0) Albumin/Globulin Ratio 0.7 (1.0-1.7) Lipase 206 U/L (73-393) Vitals/I & O Vital Sign - Last 24 Hours 03/13/19 03/13/19 03/13/19 03/13/19 15:00 19:15 20:00 23:14 Temp 98.1 97.6 98.1 98.1 97.6 98.1 Pulse 58 60 60 Resp 20 18 18 B/P (MAP) 135/58 (83) 136/54 (81) 134/60 (84) Pulse Ox 95 97 98 O2 Delivery Room Air Room Air Room Air Room Air 03/14/19 03/14/19 03/14/19 03/14/19 00:13 01:13 02:52 07:00 Temp 97.9 96.3 97.9 96.3 Pulse 62 50 Resp 20 20 18 16 B/P (MAP) 128/64 (85) 154/48 (83) Pulse Ox 98 98 98 93 O2 Delivery Room Air Room Air Room Air Room Air 03/14/19 03/14/19 03/14/19 07:10 08:27 11:00 Temp 96.6 96.6 Pulse 50 64 Resp 18 B/P (MAP) 154/48 119/52 (74) Pulse Ox 98 O2 Delivery Room Air Room Air Intake and Output 03/13/19 03/13/19 03/14/19 15:00 23:00 07:00 Intake Total 260 ml 500 ml 340 ml Balance 260 ml 500 ml 340 ml Assessment Eating better after pyloric dilation. Plan of Care: Continue current Tx, Mgmt JER ROCHE MD March 14, 2019 14:36
[2019-03-14 15:00] VITALS: BP 142/72
--- NOTE | 2019-03-14 17:07 | PN ---
DATE: 03/14/2019 SUBJECTIVE: The patient is resting, slightly propped up in bed, eating her breakfast comfortably, in no apparent distress. She continued to complain of some right upper quadrant pain, but denied any nausea or vomiting. Nursing staff stated she sometimes refused her medication. PHYSICAL EXAMINATION: GENERAL: When I saw her, however, this morning, she looked well and was clearly in no apparent respiratory distress, slightly pale, but no jaundice or cyanosis. No lymphadenopathy, no thyromegaly, no jugular venous distension, no lower limb edema. VITAL SIGNS: Her heart rate was 50, blood pressure was 154/88, temperature was 96.3, respiratory rate was 16, and oxygen saturation was 93% on room air. HEAD, EYES, EARS, NOSE AND THROAT: Showed normocephalic, atraumatic. NECK: Supple. HEART: Showed normal first and second heart sounds with no gallop, rub or murmur. CHEST: Clear to auscultation. No crepitation or rhonchi. ABDOMEN: Distended, soft, nontender. No guarding or rigidity. No organomegaly. All hernial orifice intact. Bowel sounds normal. NEUROLOGIC: She was awake, alert, responding appropriately. All cranial nerves intact. She moves extremities without difficulty. Her intake over the last 24 hours was 480, output was 200. LABORATORY DATA: As of this morning, her white cell count was 2900, hemoglobin 10.5, hematocrit 30, MCV 103, MCV was 94 and platelet count of 103,000. Her chemistry showed a serum sodium 142, potassium 3.6, chloride 105, bicarbonate 29, anion gap of 8, BUN 14, creatinine 1.4, estimated GFR was 36 mL per minute, her glucose was 88, calcium was 8.5. Total bilirubin, AST, ALT, alkaline phosphatase slightly elevated. Total protein was 5.8, albumin 2.3. ASSESSMENT: 1. Symptomatic cholelithiasis, status post laparoscopic cholecystectomy with cholangiogram and lysis of adhesion. 2. The patient has recurrent episodes of nausea and vomiting for which she underwent upper GI endoscopy showed that she has pyloric stenosis, status post dilatation. 3. The patient has multiple other medical problems including: A. Hypothyroidism. B. Chronic back pain. C. Morbid obesity. D. Degenerative disk disease. E. She has recurrent episode of syncope for which she had a loop recorder placed. F. She has history of pancreatitis. 4. Hypokalemia, resolved. Her potassium is up to 3.8. 5. Pancytopenia. PLAN: My plan is to repeat all her lab works tomorrow and consult the social work coordinator to see whether she is due for discharge to probably either a swing bed at [facility] and/or perhaps [facility]. ALEXY LIN MD DR: NATALIE/jackie JOB#: [id number] / [id number]
[2019-03-14 19:00] VITALS: BP 135/55
[2019-03-14] MEDS: DONEPEZIL HCL 10 MG TABLET. PO SCH (20:43)
[2019-03-14] MEDS: MORPHINE SULFATE 4 MG/ML VIAL. IV PRN (22:30)
[2019-03-14 23:00] VITALS: BP 140/60
[2019-03-15 03:00] VITALS: BP 122/58
[2019-03-15 05:15] LABS: ALBUMIN 2.5 g/dL (3.4-5.0); ALBUMIN/GLOBULIN RATIO 0.7 (1.0-1.7); CALCIUM 8.8 mg/dL (8.5-10.1); CREATININE 1.5 mg/dL (0.6-1.0); GFR 33.3; POTASSIUM 4.4 mmol/L (3.5-5.1); TOTAL BILIRUBIN 0.8 mg/dL (0.2-1.0); TOTAL PROTEIN 6.3 g/dL (6.4-8.2)
[2019-03-15 07:00] VITALS: BP 146/74
[2019-03-15] MEDS: PANTOPRAZOLE 40 MG TABLET.DR. PO SCH (07:48)
[2019-03-15] MEDS: LEVOTHYROXINE 100 MCG TABLET PO SCH (07:48)
[2019-03-15] MEDS ORDERED: LORA0.5T PO (08:43)
[2019-03-15] MEDS ORDERED: HYDR-2761 PO (08:43)
--- NOTE | 2019-03-15 08:48 | SNU/HH DC ---
DISCHARGE ORDERS DISCHARGE INFORMATION: DISCHARGE DATE: March 15, 2019 FINAL DIAGNOSIS Symptomatic Cholelithiasis s/p cholecystectomy Pyloric stenosis s/p dilatation multiple non -obstructed ventral hernias CONDITION ON DISCHARGE: Stable CODE STATUS: Code Status: Full RESIDENTIAL: SNF STAY <30 DAYS: Yes POST DISCHARGE ORDERS: ACTIVITY ORDERS: No restrictions, Resume previous activity WEIGHT BEARING STATUS: No restrictions, Full weight bearing DIET AFTER DISCHARGE: Regular TREATMENT/EQUIPMENT ORDERS: ADAPTIVE EQUIPMENT NEEDED: None, Walker Physical Therapy For: Evalulation/Treatment Occupational Therapy For: Evaluation/Treatment DISCHARGE MEDICATIONS: Home Meds Active Scripts Hydrocodone Bit/Acetaminophen (HYDROCODONE-APAP 5-325 ) 1 Tab Tablet, 1 TAB PO PRN Q6HRS PRN for PAIN for 30 Days, #120 TAB 0 Refills Prov:ALEXY LIN MD 03/15/19 Lorazepam (LORAZEPAM) 0.5 Mg Tablet, 1 TAB PO Q6H for ANXIETY for 30 Days, #120 TAB Prov:ALEXY LNI MD 03/15/19 Reported Medications Pantoprazole Sodium (PROTONIX) 20 Mg Tablet.dr, 2 TAB PO DAILY for heartburn prevention , #30 TAB 03/05/19 Ondansetron (ONDANSETRON ODT) 4 Mg Tab.rapdis, 1 TAB PO PRN Q6-8HRS for nausea, #16 TAB 03/05/19 Nystatin (NYSTATIN) 15 Gm Powder, 1 AG TP BID for redness on skin folds , #1 BOTTLE 03/05/19 Memantine Hcl (NAMENDA) 10 Mg Tablet, 0.5 TAB PO BID for memory, #180 TAB 1 Refill 03/05/19 Melatonin (MELATONIN) 3 Mg Tablet, 1 TAB PO QHS for insomnia, #30 TAB 2 Refills 03/05/19 Losartan Potassium (LOSARTAN POTASSIUM) 50 Mg Tablet, 50 MG PO DAILY for HYPERTENSION, TAB 03/05/19 Levothyroxine Sodium (LEVOTHYROXINE SODIUM) 100 Mcg Tablet, 1 TAB PO DAILY for thyroid supplement , #30 TAB 5 Refills 03/05/19 Donepezil Hcl (DONEPEZIL HCL) 10 Mg Tablet, 10 MG PO HS for memory , TAB 03/05/19 Docusate Sodium (DOCUSATE SODIUM) 100 Mg Capsule, 1 CAP PO BID for stool softner , #30 CAP 03/05/19 Aspirin (ASPIR-LOW) 81 Mg Tablet.dr, 1 TAB PO DAILY for heart health , #30 TAB 3 Refills 03/05/19 Citalopram Hydrobromide (CITALOPRAM HBR) 10 Mg Tablet, 1 TAB PO DAILY for mood, #30 TAB 3 Refills 03/04/19 Calcium Carbonate/Vitamin D3 (CALCIUM 500 + VIT D 200 CAPLET) 1 Each Tablet, 1 EACH PO DAILY for supplement, TAB 03/04/19 Acetaminophen (Tylenol) 325 Mg Capsule, 650 MG PO PRN Q4HRS PRN for PAIN, CAP 03/04/19 ALEXY LIN MD March 15, 2019 08:48
[2019-03-15] MEDS: LACTOBACILLUS RHAMNOSUS GG 1 CAPSULE. PO SCH ×2 (09:00→10:10)
--- NOTE | 2019-03-15 09:09 | NUR ---
Pt. refusing am meds at this time, states she will take them later.
[2019-03-15] MEDS: CITALOPRAM 10 MG TABLET. PO SCH (10:11)
[2019-03-15] MEDS: POTASSIUM CHLORIDE 10 MEQ TABLET.ER. PO SCH ×2 (10:11→12:46)
[2019-03-15] MEDS: DOCUSATE SODIUM 100 MG CAPSULE. PO SCH (10:11)
[2019-03-15] MEDS: LOSARTAN POTASSIUM 50 MG TABLET. PO SCH (10:11)
[2019-03-15] MEDS: CALCIUM CARB/VIT D3 500/200 TABLET. PO SCH (10:11)
[2019-03-15] MEDS: MEMANTINE 5 MG TABLET. PO SCH (10:11)
[2019-03-15] MEDS: POLYETHYLENE GLYCOL 3350 17 GM PACKET. PO SCH (10:12)
[2019-03-15] MEDS: NYSTATIN TOPICAL POWDER 15GM BOTTLE. TP SCH (10:12)
--- NOTE | 2019-03-15 10:13 | PDOC ---
Subjective: Subjective: Not hungry for breakfast. Denies pain. 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 Stool charted 03/12. Vital Signs: Vital Signs Date Time Temp Pulse Resp B/P (MAP) Pulse Ox O2 Delivery O2 Flow Rate FiO2 03/15/19 07:00 98.1 72 18 146/74 (98) 94 Room Air 98.1 Labs: Laboratory Tests Test 03/15/19 03:40 Sodium Level 140 mmol/L Potassium Level 4.4 mmol/L Chloride Level 104 mmol/L Carbon Dioxide Level 27 mmol/L Anion Gap 9 Blood Urea Nitrogen 17 mg/dL Creatinine 1.5 mg/dL Estimated GFR (Cockcroft-Gault) 33.3 BUN/Creatinine Ratio 11 Glucose Level 118 mg/dL Calcium Level 8.8 mg/dL Total Bilirubin 0.8 mg/dL Aspartate Amino Transf (AST/SGOT) 57 U/L Alanine Aminotransferase (ALT/SGPT) 57 U/L Alkaline Phosphatase 172 U/L Total Protein 6.3 g/dL Albumin 2.5 g/dL Albumin/Globulin Ratio 0.7 Lipase 243 U/L Imaging: EGD with dilation Meds propofol per anesthesia Pre-op dx n/v s/p zoraida Post-o dx pyloric stenosis s/p 15 mm balloon dilation Plan resume meds and diet Acid suppressive therapy nursing home Consider surgery if pyloric stenosis recurs s/p dilation PE: GEN: NAD - was asleep, breakfast tray untouched LUNGS: CTAB HEART: RRR ABD: NABS, S/ND/NT NEURO/PSYCH: confused? A/P: S/p cholecystectomy Pyloric stenosis s/p balloon dilation Dementia -- Continue PPI. HERBIE TAO March 15, 2019 10:13
[2019-03-15 11:00] VITALS: BP 132/79
--- NOTE | 2019-03-15 11:01 | NUR ---
SW following for discharge planning. Discussed with RN and Dr. Perea, pt has been accepted at [facility] and can go there today. SW faxed discharge paperwork to [facility]. [employer] will pick up driver pt between [id number]. Pt choice and rights letter verbally signed by pt's dtr, Laurence Kenr and placed on chart. RN notified. No further SW needs.
--- NOTE | 2019-03-15 12:45 | DS ---
DATE OF DISCHARGE: 03/15/2019 HOSPITAL COURSE: The patient is an 83-year-old female patient who was originally admitted to [facility] with chest pain, right upper quadrant pain as well as right shoulder pain. Investigation there showed that she has multiple nonobstructing ventral hernias and was transferred to [facility] where an ultrasound showed that she has acute symptomatic cholelithiasis, for which she underwent cholecystectomy. Postoperatively, she continued to have recurrent bouts of nausea, vomiting and esophagogastroduodenoscopy showed that she has pyloric stenosis for which she underwent dilatation and did very well. She has been eating and drinking, although her intake is poor. She continues to be very weak and deconditioned, although has remained hemodynamically stable and afebrile. Her lab works are stable. Her potassium has improved to 4.4 and therefore a decision was made to transfer her to [facility] at [facility] to continue the process of rehabilitation. PHYSICAL EXAMINATION: GENERAL: When I saw her this morning, she looked well and was clearly in no apparent respiratory distress. No pallor, jaundice, cyanosis, or thyromegaly. No jugular venous distension. No lower limb edema. VITAL SIGNS: Her heart rate was 72, blood pressure was 146/74, temperature was 98.1, respiratory rate was 18 and oxygen saturation was 94% on room air. HEAD, EYES, EARS, NOSE AND THROAT: Showed normocephalic, atraumatic. NECK: Supple. HEART: Showed normal first and second heart sounds. No gallop, rub or murmur. CHEST: Clear to auscultation. No crepitation or rhonchi. ABDOMEN: Distended, soft, nontender. NEUROLOGIC: She is demented, but without any obvious lateralizing sign. She is able to ambulate with a walker. LABORATORY DATA: Her lab work this morning showed a serum sodium 140, potassium 4.4, chloride 104, bicarbonate 27, anion gap of 9, BUN 17, creatinine 1.5, estimated GFR was 53 mL per minute. Her glucose 118, calcium was 8.8. Total bilirubin, AST, ALT, alkaline phosphatase slightly elevated. Her total protein was 6.3, albumin 2.5. Her serum lipase was 243. White cell count was 2900, hemoglobin 10.5, hematocrit 31, MCV 94 and platelet count of 103,000. DISCHARGE MEDICATIONS: She will be discharged to [facility] bed at [facility] to continue on hydrocodone/APAP 5/325 one tablet every 6 hours as needed, lorazepam 0.5 mg every 6 hours, Tylenol 650 mg every 4 hours as needed, aspirin 81 mg once a day, calcium carbonate with vitamin D one tablet once a day, citalopram hydrobromide 10 mg once a day, docusate sodium 100 mg twice a day, donepezil for Aricept 10 mg at bedtime, levothyroxine sodium 100 mcg daily, losartan potassium 50 mg daily, melatonin 3 mg at bedtime, Namenda 5 mg twice a day, nystatin powder applied topically twice a day, ondansetron ODT 1 tablet every 6-8 hours, and Protonix 20 mg, she takes 40 mg once a day. FINAL DISCHARGE DIAGNOSES: 1. Symptomatic cholelithiasis status post laparoscopic cholecystectomy with cholangiogram and lysis of adhesions. 2. The patient has recurrent episodes of nausea and vomiting for which she underwent upper gastrointestinal endoscopy, which showed that she has pyloric stenosis, status post dilatation. 3. The patient has multiple other medical problems including: A. Hypothyroidism. B. Chronic back pain. C. Morbid obesity. D. Degenerative disk disease. E. She has recurrent episodes of syncope for which has a loop recorder placed. F. She has history of pancreatitis. 4. Hypokalemia, has resolved. Her potassium is up to 4.2. 5. Pancytopenia. ALEXY LIN MD DR: NATALIE/jackie JOB#: [id number] / [id number]
--- NOTE | 2019-03-15 14:21 | NUR ---
pt. transferred to [facility] bed via [facility].
--- NOTE | 2019-03-15 14:36 | NUR ---
PIERRE Ferris notified of pt going to [facility] bed.
== END 2019-03-15 14:10 | disposition swing bed (61) | DRG 336 ==
LOC: 4 NORTH 18:39 → 2 NORTH 19:01 → 4 NORTH 03-12 13:17
PROVIDERS: ADMIT Internal Medicine; ATTEND Internal Medicine
PROC: BF101ZZ Fluoroscopy of Bile Ducts using Low Osmolar Contrast (ICD-10-PCS; 2019-03-07)
PROC: 0DNU4ZZ Release Omentum, Percutaneous Endoscopic Approach (ICD-10-PCS; 2019-03-07)
PROC: 0FT44ZZ Resection of Gallbladder, Percutaneous Endoscopic Approach (ICD-10-PCS; principal; 2019-03-07 10:15)
PROC: 0D778ZZ Dilation of Stomach, Pylorus, Via Natural or Artificial Opening Endoscopic (ICD-10-PCS; 2019-03-11)
DX: K31.1 Adult hypertrophic pyloric stenosis (principal); K80.00 Calculus of gallbladder with acute cholecystitis without obstruction; N17.9 Acute kidney failure, unspecified; Z68.41 Body mass index [BMI] 40.0-44.9, adult; D61.818 Other pancytopenia; F05 Delirium due to known physiological condition; K43.9 Ventral hernia without obstruction or gangrene; E66.01 Morbid (severe) obesity due to excess calories; E03.9 Hypothyroidism, unspecified; E87.6 Hypokalemia; F03.90 Unspecified dementia, unspecified severity, without behavioral disturbance, psychotic disturbance, mood disturbance, and anxiety; F45.21 Hypochondriasis; G89.29 Other chronic pain; I12.9 Hypertensive chronic kidney disease with stage 1 through stage 4 chronic kidney disease, or unspecified chronic kidney disease; I48.91 Unspecified atrial fibrillation; M19.90 Unspecified osteoarthritis, unspecified site; K66.0 Peritoneal adhesions (postprocedural) (postinfection); K76.0 Fatty (change of) liver, not elsewhere classified; N18.9 Chronic kidney disease, unspecified; Z80.9 Family history of malignant neoplasm, unspecified; Z82.49 Family history of ischemic heart disease and other diseases of the circulatory system; Z88.8 Allergy status to other drugs, medicaments and biological substances; Z68.38 Body mass index [BMI] 38.0-38.9, adult; Z90.49 Acquired absence of other specified parts of digestive tract; Z79.899 Other long term (current) drug therapy
CPT/HCPCS: 36415; 43233; 74300; 76700; 80048; 80053; 80076; 83605; 83615; 83690; 85025; 85027; 85610; 85651; 86140; 88304; 94640; A7015; J0360; J0780; J1100; J1170; J1610; J1885; J2001; J2270; J2405; J2543; J2704; J2710; J3010; J3490; J7030; J7120; J7620; Q0162; Q9967; 97116; 97535

== ENCOUNTER 2019-03-21 16:43 | Inpatient (IN) | payer MEDICARE ==
[~2019-03-21] VITALS: Ht 160 cm; Wt 98.5 kg
[~2019-03-21 16:43] MED LIST changes: +ACET325C5 PO; +ASPI81TA50 PO; +CALC-56 PO; +CITA10TA4 PO; +DOCU100C28 PO; +DONE10TA7 PO; +HYDR-2761 PO; +LEVO100T5 PO; +LORA0.5T PO; +LOSA-73 PO; +MELA3TAB2 PO; +MEMA10TA PO; +NYST15PO9 TP; +ONDA4TAB12 PO; +PANT20TA2 PO
[2019-03-21 20:00] VITALS: BP 122/53
[2019-03-21] MEDS ORDERED: ONDANSETRON ODT 4 MG TAB.RAPDIS. PO PRN (20:30)
[2019-03-21] MEDS ORDERED: ACETAMINOPHEN 325 MG TABLET. PO PRN (20:45)
[2019-03-21] MEDS ORDERED: NON FORMULARY ITEM (Melatonin 1 TAB) PO SCH (21:00)
[2019-03-21] MEDS: DOCUSATE SODIUM 100 MG CAPSULE. PO SCH (21:02)
[2019-03-21] MEDS: MEMANTINE 5 MG TABLET. PO SCH (21:02)
[2019-03-21] MEDS: DONEPEZIL HCL 10 MG TABLET. PO SCH (21:02)
[2019-03-21] MEDS: NYSTATIN TOPICAL POWDER 15GM BOTTLE. TP SCH (21:46)
[2019-03-21] MEDS: LORazepam 0.5 MG TABLET PO PRN (21:46)
[2019-03-21 23:00] VITALS: BP 113/66
[2019-03-22] MEDS ORDERED: ENOX100D SQ (02:48)
[2019-03-22 03:29] VITALS: BP 145/67
[2019-03-22 04:00] LABS: BASO % 0 % (0-3); EOS # 0.2 x10^3/uL (0.0-0.7); EOS % 6 % (0-3); HEMATOCRIT 30.6 % (36.0-47.0); HEMOGLOBIN 10.4 g/dL (12.0-15.5); LYMPH # 0.9 x10^3/uL (1.0-4.8); LYMPH % 30 % (24-48); MEAN CORPUSCULAR HEMOGLOBIN 32 pg (25-35); MEAN CORPUSCULAR HGB CONC 34 g/dL (31-37); MEAN CORPUSCULAR VOLUME 95 fL (79-100); MONO # 0.3 x10^3/uL (0.0-1.1); MONO % 10 % (0-9); NEUT # 1.6 x10^3uL (1.8-7.7); NEUT % 54 % (31-73); PLATELET COUNT 150 x10^3/uL (140-400); RED BLOOD COUNT 3.24 x10^6/uL (3.50-5.40); RED CELL DISTRIBUTION WIDTH 14.3 % (11.5-14.5)
[2019-03-22 04:07] LABS: PROTHROMBIN TIME PATIENT 13.8 SEC (11.7-14.0)
[2019-03-22 04:24] LABS: ALBUMIN 2.7 g/dL (3.4-5.0); ALBUMIN/GLOBULIN RATIO 0.7 (1.0-1.7); CALCIUM 9.2 mg/dL (8.5-10.1); CREATININE 1.6 mg/dL (0.6-1.0); GFR 30.9; TOTAL BILIRUBIN 0.6 mg/dL (0.2-1.0); TOTAL PROTEIN 6.5 g/dL (6.4-8.2)
[2019-03-22 07:00] VITALS: BP 101/74
[2019-03-22] MEDS: LEVOTHYROXINE 100 MCG TABLET PO SCH (07:00)
[2019-03-22] MEDS: PANTOPRAZOLE 40 MG TABLET.DR. PO SCH (07:30)
[2019-03-22] MEDS: ASPIRIN ENTERIC COATED 81 MG TABLET.DR. PO SCH (08:00)
[2019-03-22] MEDS: CALCIUM CARB/VIT D3 500/200 TABLET. PO SCH (08:00)
[2019-03-22] MEDS: DOCUSATE SODIUM 100 MG CAPSULE. PO SCH ×2 (09:00→21:07)
[2019-03-22] MEDS: LOSARTAN POTASSIUM 50 MG TABLET. PO SCH (09:00)
[2019-03-22] MEDS: MEMANTINE 5 MG TABLET. PO SCH ×2 (09:00→21:07)
[2019-03-22] MEDS: CITALOPRAM 10 MG TABLET. PO SCH (09:00)
[2019-03-22] MEDS ORDERED: IOHEXOL 240 MG/ML 50ML VIAL. ONE (10:42)
[2019-03-22] MEDS ORDERED: LIDOCAINE WITH 8.4% SOD BICARB 3 ML DISP.SYRIN. ONE (10:42)
[2019-03-22 11:00] VITALS: BP 113/44
--- NOTE | 2019-03-22 12:17 | HP ---
ADMIT DATE: 03/22/2019 HISTORY OF PRESENT ILLNESS: The patient is an 83-year-old female patient who was admitted to [facility] with a complaint of chest pain. Initial investigation showed that she has had 2 sets of cardiac enzymes that ruled out myocardial infarction. Her D-dimer was high at 4.5; however, her kidney function was impaired. The patient had perfusion ventilation scan, which was read as low probability for pulmonary embolism. However, the venous Doppler ultrasound of her left lower extremity showed deep vein thrombosis of her left superficial femoral vein. We did start her on Lovenox based on her kidney function and given that she has multiple episodes of syncope and has fallen multiple times, she has in fact even a loop recorder placed recently, a decision was made to transfer her to [facility] for placement of IVC filter after discussing all the options available with her daughter and the patient herself. PAST MEDICAL HISTORY: Her past medical history is significant for hypothyroidism, chronic back pain, morbid obesity, degenerative joint disease, history of multiple syncopal episodes for which she has an outpatient loop recorder placed recently, history of pancreatitis, history of acute cholecystitis and pyloric stenosis. PAST SURGICAL HISTORY: Significant for tonsillectomy, loop recorder placement, laparoscopic cholecystectomy and esophagogastroduodenoscopy and dilatation of the pyloric stenosis. FAMILY HISTORY: She has one younger brother who has cognitive impairment. Her father because of cancer. SOCIAL HISTORY: She apparently has 3 children, 1 son and 2 daughters. She does not smoke, drink alcohol or use any recreational drugs. She apparently was fairly independent up until recently. ALLERGIES: She has no known drug allergies. MEDICATIONS: She is currently on the following medications: She is currently on Aricept 10 mg at bedtime, Lovenox 100 mg subcutaneous once a day, losartan potassium 50 mg daily, aspirin 81 mg once a day, hydrocodone/APAP one tablet every 6 hours as needed, Tylenol 650 mg every 6 hours, citalopram hydrobromide 10 mg once a day, lorazepam 0.5 mg every 6 hours as needed, Namenda 5 mg twice a day, calcium carbonate with vitamin D one tablet once a day, Colace 100 mg twice a day, ondansetron 4 mg every 8 hours, Protonix 40 mg daily, levothyroxine sodium 100 mcg daily, Nystatin powder applied topically as needed twice a day and melatonin 3 mg daily. REVIEW OF SYSTEMS: As per history of present illness. PHYSICAL EXAMINATION: GENERAL: When I saw her this morning, she was resting slightly propped up in bed, in no apparent respiratory distress, slightly pale, but not jaundiced or cyanosed from thyromegaly. No jugular venous distention. No lower limb edema. VITAL SIGNS: Her heart rate was 64, blood pressure was 101/74, temperature was 98.2, respiratory rate was 14 and oxygen saturation was 94%. HEENT: Examination of the head, eyes, ears, nose and throat showed normocephalic, atraumatic. NECK: Supple. HEART: Showed normal first and second heart sounds. No gallop, rub or murmur. CHEST: Clear to auscultation. No crepitation or rhonchi. ABDOMEN: Distended, soft and nontender. No guarding or rigidity. No organomegaly. All hernial orifices intact. Bowel sounds normal. NEUROLOGIC: She was demented, but without any obvious lateralizing signs. She moved extremities without difficulty. She ambulated with a walker. Her intake and output were incompletely recorded. LABORATORY DATA: Her lab work this morning showed a white cell count of 3000, hemoglobin 10, hematocrit 30, MCV 95 and platelet count of 150,000 with normal manual differential. Her chemistry showed a serum sodium 140, potassium 4, chloride 104, bicarbonate 28, anion gap of 8, BUN 22, creatinine 1.6 and estimated GFR was 50 mL per minute. Her calcium was 9.2. Total bilirubin is normal. AST, ALT and alkaline phosphatase slightly elevated. Her total protein was 6.5. Albumin was 2.7. Her prothrombin time was 15.8, INR 1.1 and aPTT was 26. ASSESSMENT AND PLAN: In summary, this is an 83-year-old female patient with left lower extremity DVT with a high risk for oral anticoagulation and she was transferred to this hospital to consult the interventional radiologist for placement of an IVC filter. Once that procedure is accomplished and she is stable, we will discharge her back home. ALEXY LIN MD DR: NATALIE/jackie JOB#: [id number] / [id number]
[2019-03-22 15:00] VITALS: BP 131/53
--- NOTE | 2019-03-22 16:14 | NUR ---
SW following pt for anticipated dc needs. Chart reviewed. Pt was recently discharged to [facility] swing bed. SW left a message for Tracy at [facility]. SW requested for PT/OT order as recommended by Rehab screen.
[2019-03-22] MEDS: NYSTATIN TOPICAL POWDER 15GM BOTTLE. TP SCH ×2 (17:27→21:08)
[2019-03-22 19:00] VITALS: BP 116/57
[2019-03-22] MEDS: DONEPEZIL HCL 10 MG TABLET. PO SCH (21:07)
[2019-03-22] MEDS: LORazepam 0.5 MG TABLET PO PRN (21:25)
[2019-03-22] MEDS: HYDROcodone/APAP 5/325MG 1 TAB TABLET PO PRN (22:00)
[2019-03-22 23:00] VITALS: BP 138/73
[2019-03-23] VITALS (11 sets, daily range): BP systolic 105–151; BP diastolic 32–92
[2019-03-23] MEDS: LORazepam 0.5 MG TABLET PO PRN (03:54)
[2019-03-23] MEDS: HYDROcodone/APAP 5/325MG 1 TAB TABLET PO PRN ×3 (03:54→17:01)
[2019-03-23] MEDS: LEVOTHYROXINE 100 MCG TABLET PO SCH (07:00)
[2019-03-23] MEDS: PANTOPRAZOLE 40 MG TABLET.DR. PO SCH (07:30)
[2019-03-23] MEDS ORDERED: LIDOCAINE WITH 8.4% SOD BICARB 3 ML DISP.SYRIN. ONE (08:57)
[2019-03-23] MEDS ORDERED: IOHEXOL 240 MG/ML 50ML VIAL. ONE (08:57)
[2019-03-23] MEDS ORDERED: IOHEXOL 240 MG/ML IART ONE (09:30)
[2019-03-23] MEDS ORDERED: LIDOCAINE WITH 8.4% SOD BICARB 3 ML DISP.SYRIN. IJ ONE (09:30)
[2019-03-23] MEDS: CITALOPRAM 10 MG TABLET. PO SCH (09:54)
[2019-03-23] MEDS: CALCIUM CARB/VIT D3 500/200 TABLET. PO SCH (09:54)
[2019-03-23] MEDS: ASPIRIN ENTERIC COATED 81 MG TABLET.DR. PO SCH (09:54)
[2019-03-23] MEDS: NYSTATIN TOPICAL POWDER 15GM BOTTLE. TP SCH ×2 (09:55→21:18)
[2019-03-23] MEDS: LOSARTAN POTASSIUM 50 MG TABLET. PO SCH (09:55)
[2019-03-23] MEDS: MEMANTINE 5 MG TABLET. PO SCH ×2 (09:55→21:18)
[2019-03-23] MEDS: DOCUSATE SODIUM 100 MG CAPSULE. PO SCH ×2 (09:55→21:18)
--- NOTE | 2019-03-23 12:44 | RAD ---
Procedure: IVC filter placement Clinical Indication: 83-year-old female with DVT and contraindication to anticoagulation Sedation: Local anesthesia only Antibiotics: None Exposure: Kerma-Area Product: 152 Gycm2 Sterility: All elements of maximal sterile barrier technique including the use of a cap, mask, sterile gown, sterile gloves, large sterile sheet, appropriate hand hygiene, and 2% chlorhexidine for cutaneous antisepsis (or acceptable alternative antiseptic per current guidelines) were followed for this procedure. If ultrasound guidance was utilized, sterile ultrasound techniques were followed including use of a sterile probe cover. Consent: The procedure was explained in its entirety to the patient or the patients designated media sales representative by a member of the treatment team, including a discussion of the risks, benefits and commonly accepted alternatives to the procedure, as well as the expected consequences of no therapy whatsoever. Discussion of the risks included, but was not limited to, those that are most frequent and those that are rare but possibly severe or life-threatening, as well as the possibility of unforeseen complications. Technique and Findings: Following informed consent, the patient was prepped and draped in usual sterile fashion. Ultrasound interrogation of the right neck revealed patency and compressibility of the right internal jugular vein. A Hardcopy ultrasound image was recorded. As a 21-gauge micropuncture needle was used to gain access to this vessel. The needle was exchanged over wire for an 8 Frisian sheath which was advanced in the IVC and subsequently into the left external iliac vein. Contrast venography was performed using 10 cc of 75% dilute Omnipaque 320 contrast media. There is no accessory IVC. The main IVC is patent. Single bilateral renal veins are patent. An angled catheter was then advanced into the right renal vein to confirm its location. A Vena [employer] permanent IVC filter was then deployed in an infrarenal location. A completion venogram using 10 cc of 75% diluted Omnipaque 320 contrast media was then performed confirming good position of the IVC filter. The sheath was then removed and hemostasis was achieved with manual compression. Complications: No immediate Impression: 1. IVC filter placement as described. This is a permanent infrarenal IVC filter.
--- NOTE | 2019-03-23 16:35 | NUR ---
Patient post IVC filter placement. Lovenox held. Addendum: 03/23/19 at 1642 by MICHELLE LOPEZ RN lovenox given.
--- NOTE | 2019-03-23 18:55 | NUR ---
Patient complaining about IVC Filter site dressing and was taking off dressing. Dressing reinforced. Later was complaining about dressing again. Dressing changed to a smaller dressing. A couple of hours later patient complaining about dressing on site. This RN changed the dressing once again. About 1700 this RN went into patient's room and patient had removed dressing. Patient refusing new dressing. Will continue to monitor and care for according to poc.
[2019-03-23] MEDS: DONEPEZIL HCL 10 MG TABLET. PO SCH (21:18)
[2019-03-24 02:33] VITALS: BP 109/58
[2019-03-24] MEDS: LEVOTHYROXINE 100 MCG TABLET PO SCH (06:24)
[2019-03-24] MEDS: PANTOPRAZOLE 40 MG TABLET.DR. PO SCH (06:24)
[2019-03-24 07:00] VITALS: BP 145/55
[2019-03-24] MEDS: DOCUSATE SODIUM 100 MG CAPSULE. PO SCH (08:40)
[2019-03-24] MEDS: CITALOPRAM 10 MG TABLET. PO SCH (08:40)
[2019-03-24] MEDS: CALCIUM CARB/VIT D3 500/200 TABLET. PO SCH (08:40)
[2019-03-24] MEDS: ASPIRIN ENTERIC COATED 81 MG TABLET.DR. PO SCH (08:40)
[2019-03-24] MEDS: MEMANTINE 5 MG TABLET. PO SCH (08:40)
[2019-03-24] MEDS: LOSARTAN POTASSIUM 50 MG TABLET. PO SCH (08:41)
[2019-03-24] MEDS: NYSTATIN TOPICAL POWDER 15GM BOTTLE. TP SCH (08:41)
--- NOTE | 2019-03-24 08:48 | NUR ---
Pt sleeping at time of medication administration/breakfast. Decline breakfast, requests medications "In a little bit" and refuses to take them. Allows lovenox injection, pt needs new ID bracelet and IV taped in place. 0456 Hydrocodone reassessment not done, but at shift change, pt reported no pain.
--- NOTE | 2019-03-24 08:56 | DISCH ---
DISCHARGE INSTRUCTIONS Condition on Discharge Condition on Discharge: Stable Activity After Discharge Activity Instructions for Disc: No restrictions, Activity as tolerated Bathing Instructions: Shower-keep dressing dry Lifting Instructions after Dis: No heavy lifting Weight Bearing Status after Di: No restrictions, Full weight bearing Diet after Discharge Diet after Discharge: Regular Wound Incision Care Wound/Incision Care: May get incision wet Treatment/Equipment after DC Adaptive Equipment Issued: None, ALEXY Faria MD Mar 24, 2019 08:56
--- NOTE | 2019-03-24 09:03 | SNU/HH DC ---
DISCHARGE WITH HOME HEALTH DISCHARGE INFORMATION: Discharge Date: Mar 24, 2019 Final Diagnosis: Left Lower Extremity DVT Recurrent falls s/p I V C Filter Placement Condition on Discharge: Stable CODE STATUS: Code Status: Full HOME HEALTH: Face to Face: I certify this patient is under my care and that I, or a nurse practitioner or physician's home care assistant working with me, had a face to face encounter that meets the physician face to face encounter requirements with this patient on []. Medical Complications: Dementia, Other RN For Eval/Treatment: Yes Physical Therapy For: Evalulation/Treatment Occupational Therapy For: Evaluation/Treatment Pt Meets Homebound Status: Poor coordination w/ amb., Unsteady balance w/ amb, POST DISCHARGE ORDERS: Activity Instructions for Disc: No restrictions, Resume previous activity, Activity as tolerated Weight Bearing Status after Di: No restrictions, Full weight bearing Bathing Instructions: Shower-keep dressing dry DIET AFTER DISCHARGE: Regular Wound/Incision Care: May get incision wet FOLLOW-UP: PCP to follow Home Health: as needed TREATMENT/EQUIPMENT ORDERS: Adaptive Equipment Issued: None, Walker CERTIFICATION STATEMENT: Certification Statement: Certification Statement: Based on the above finding, I certify that this patient is confined to the home and needs intermittent shelter care, physical therapy and/or speech therapy, or continues to need occupational therapy.~ This patient is under my care, and I have initiated the establishment of the plan of care.~ This patient will be followed by myself or a community physician who will periodically review the plan of care. Home Meds Active Scripts Hydrocodone Bit/Acetaminophen (HYDROCODONE-APAP 5-325 ) 1 Tab Tablet, 1 TAB PO PRN Q6HRS PRN for PAIN for 30 Days, #120 TAB 0 Refills Prov:ALEXY LIN MD 03/15/19 Lorazepam (LORAZEPAM) 0.5 Mg Tablet, 1 TAB PO Q6H for ANXIETY for 30 Days, #120 TAB Prov:ALEXY LIN MD 03/15/19 Reported Medications Pantoprazole Sodium (PROTONIX) 20 Mg Tablet.dr, 2 TAB PO DAILY for heartburn prevention , #30 TAB 03/05/19 Ondansetron (ONDANSETRON ODT) 4 Mg Tab.rapdis, 1 TAB PO PRN Q8HRS PRN for NAUSEA/VOMITING, #16 TAB 03/05/19 Nystatin (NYSTATIN) 15 Gm Powder, 1 AG TP BID for redness on skin folds , #1 BOTTLE 03/05/19 Memantine Hcl (NAMENDA) 10 Mg Tablet, 0.5 TAB PO BID for memory, #180 TAB 1 Refill 03/05/19 Melatonin (MELATONIN) 3 Mg Tablet, 1 TAB PO QHS for insomnia, #30 TAB 2 Refills 03/05/19 Losartan Potassium (LOSARTAN POTASSIUM) 50 Mg Tablet, 50 MG PO DAILY for H YPERTENSION, TAB 03/05/19 Levothyroxine Sodium (LEVOTHYROXINE SODIUM) 100 Mcg Tablet, 1 TAB PO DAILY for thyroid supplement , #30 TAB 5 Refills 03/05/19 Donepezil Hcl (DONEPEZIL HCL) 10 Mg Tablet, 10 MG PO HS for memory , TAB 03/05/19 Docusate Sodium (DOCUSATE SODIUM) 100 Mg Capsule, 1 CAP PO BID for stool softner , #30 CAP 03/05/19 Aspirin (ASPIR-LOW) 81 Mg Tablet.dr, 1 TAB PO DAILY for heart health , #30 TAB 3 Refills 03/05/19 Citalopram Hydrobromide (CITALOPRAM HBR) 10 Mg Tablet, 1 TAB PO DAILY for mood, #30 TAB 3 Refills 03/04/19 Calcium Carbonate/Vitamin D3 (CALCIUM 500 + VIT D 200 CAPLET) 1 Each Tablet, 1 EACH PO DAILY for supplement, TAB 03/04/19 Acetaminophen (Tylenol) 325 Mg Capsule, 650 MG PO PRN Q6HRS PRN for PAIN, CAP 03/04/19 Discontinued Reported Medications Enoxaparin Sodium (LOVENOX) 100 Mg/1 Ml Disp.syrin, 100 MG SQ DAILY for ANTI- COAGULANT, DIS.SYR 03/22/19 ALEXY LIN MD Mar 24, 2019 09:03
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
[2019-03-24 11:00] VITALS: BP 141/62
--- NOTE | 2019-03-24 12:00 | NUR ---
Discharge Note: DOROTA BINGHAM Discharge instructions and discharge home medications reviewed with Family Member and a copy given. All questions have been answered and understanding verbalized. The following instructions and handouts were given: DVT Discontinued lines and drains: peripheral line DC intact. Patient discharged to home for self-care, in the company of her daughter Laurence. IVC filter medic alert medallion and product/warning info left behind, arrangements made to brain picker or have delivered.
--- NOTE | 2019-03-24 19:02 | DS ---
DATE OF DISCHARGE: 03/24/2019 HOSPITAL COURSE: The patient is an 83-year-old female patient who was admitted originally to [facility] with chest pain. Her dimer was high. A V/Q scan was read as low possibility; however, venous Doppler ultrasound showed she has a deep vein thrombosis in her left superficial femoral vein. The patient has recurrent syncopal episode and a high risk for anticoagulation. A decision was made to transfer her to [facility] and we did consult Dr. Kowalski and the patient underwent placement of a permanent infrarenal IVC filter successfully. The patient was discharged to swing bed recently, but she refused to participate in treatment and therefore, a decision was made to discharge her home with home health. PHYSICAL EXAMINATION: GENERAL: When I saw her this morning, she was resting slightly propped up in bed, in no apparent respiratory distress. No pallor, jaundice, cyanosis or thyromegaly. No jugular venous distention. No limb edema. VITAL SIGNS: Her heart rate was 54, blood pressure 145/55, temperature was 98, respiratory rate was 14 and oxygen saturation was 94%. HEAD, EYES, EARS, NOSE AND THROAT: Normocephalic, atraumatic. NECK: Supple. HEART: Showed normal first and second heart sounds with no gallop, rub or murmur. CHEST: Clear to auscultation. No crepitation or rhonchi. ABDOMEN: Distended, soft, nontender. No guarding or rigidity. No organomegaly. All hernial orifices intact. Bowel sounds normal. NEUROLOGIC: She was demented, but without any obvious lateralizing sign. All her cranial nerves intact. She moves extremities without difficulty. She ambulates with a walker. Her intake over the last 24 hours was 1920, output 250. LABORATORY DATA: Showed a white cell count of 3000, hemoglobin 10, hematocrit 30, MCV 95, and platelet count of 150,000. Her prothrombin time was 15.8, INR 1.1, aPTT was 26. Chemistry showed a serum sodium 140, potassium 4, chloride 104, bicarbonate 28, anion gap of 8, BUN 22, creatinine 1.6, estimated GFR was 31 mL per minute, glucose 107, calcium was 9.2. Total bilirubin is normal. AST, ALT, alkaline phosphatase slightly elevated. Total protein was 6.5, albumin 2.7. DISCHARGE MEDICATIONS: The patient was discharged home to continue on following medication: Acetaminophen 650 mg every 6 hours, aspirin 81 mg once a day, calcium carbonate with vitamin D one tablet once a day, citalopram hydrobromide 10 mg daily, Colace 100 mg twice a day, Aricept 10 mg at bedtime, hydrocodone/APAP 5/325 one tablet every 6 hours, levothyroxine sodium 100 mcg once a day, lorazepam 0.5 mg every 6 hours, losartan potassium 50 mg daily, melatonin 3 mg at bedtime, Namenda 5 mg twice a day, Nystatin powder apply topically twice a day, ondansetron 4 mg every 8 hours and Protonix 40 mg daily. FINAL DISCHARGE DIAGNOSES: 1. Left lower extremity deep venous thrombosis, status post inferior vena cava filter placement. 2. Hypothyroidism. 3. Hypertension. 4. Pyloric stenosis, status post dilatation. 5. Recurrent syncopal episode, status post loop recorder placement. 6. Anxiety and depression. 7. Dementia. ALEXY LIN MD DR: NATALIE/jackie JOB#: [id number] / [id number]
== END 2019-03-24 12:00 | disposition home or self-care (01) | DRG 252 ==
LOC: 5 NORTH 19:58
PROVIDERS: ADMIT Internal Medicine; ATTEND Internal Medicine
PROC: 06H03DZ Insertion of Intraluminal Device into Inferior Vena Cava, Percutaneous Approach (ICD-10-PCS; principal; 2019-03-23)
DX: I82.402 Acute embolism and thrombosis of unspecified deep veins of left lower extremity (principal); E43 Unspecified severe protein-calorie malnutrition; K31.1 Adult hypertrophic pyloric stenosis; G89.29 Other chronic pain; E03.9 Hypothyroidism, unspecified; I10 Essential (primary) hypertension; F41.9 Anxiety disorder, unspecified; F32.9 Major depressive disorder, single episode, unspecified; F03.90 Unspecified dementia, unspecified severity, without behavioral disturbance, psychotic disturbance, mood disturbance, and anxiety; Z68.38 Body mass index [BMI] 38.0-38.9, adult; Z88.8 Allergy status to other drugs, medicaments and biological substances
CPT/HCPCS: 36415; 37191; 76937; 80053; 85025; 85610; 85730; C1769; C1892; J1650; Q0162; Q9966

== ENCOUNTER 2019-03-31 12:43 | Inpatient (IN) | payer MEDICARE ==
[~2019-03-31 12:43] MED LIST changes: +ENOX100D SQ
[2019-03-31 15:42] VITALS: BP 133/62
[2019-03-31 19:15] VITALS: BP 125/70
[2019-03-31] MEDS ORDERED: LORazepam 0.5 MG TABLET PO SCH (19:15)
[2019-03-31] MEDS ORDERED: ONDANSETRON ODT 4 MG TAB.RAPDIS. PO PRN (19:15)
[2019-03-31] MEDS ORDERED: IPRA3AMP29 NEB (19:26)
[2019-03-31] MEDS ORDERED: ATOR10TA60 PO (19:26)
[2019-03-31] MEDS ORDERED: ACETAMINOPHEN 325 MG TABLET. PO PRN (19:30)
[2019-03-31] MEDS ORDERED: LORazepam 0.5 MG TABLET PO PRN (19:45)
[2019-03-31] MEDS: HYDROcodone/APAP 5/325MG 1 TAB TABLET PO PRN (20:00)
[2019-03-31] MEDS: IPRATRPIUM/ALBUTEROL 0.5/2.5MG 3 ML NEBU. NEB SCH (20:50)
[2019-03-31] MEDS: DONEPEZIL HCL 10 MG TABLET. PO SCH (20:58)
[2019-03-31] MEDS: DOCUSATE SODIUM 100 MG CAPSULE. PO SCH (20:59)
[2019-03-31] MEDS: MEMANTINE 5 MG TABLET. PO SCH (20:59)
[2019-03-31] MEDS ORDERED: NON FORMULARY ITEM (Melatonin 1 TAB) PO SCH (21:00)
[2019-03-31] MEDS: NYSTATIN TOPICAL POWDER 15GM BOTTLE. TP SCH (21:00)
[2019-03-31 23:30] VITALS: BP 99/61
[2019-04-01] VITALS (13 sets, daily range): BP systolic 110–161; BP diastolic 52–83
[2019-04-01] MEDS: HYDROcodone/APAP 5/325MG 1 TAB TABLET PO PRN ×3 (02:35→22:18)
[2019-04-01] MEDS: PANTOPRAZOLE 40 MG TABLET.DR. PO SCH (07:30)
[2019-04-01] MEDS: IPRATRPIUM/ALBUTEROL 0.5/2.5MG 3 ML NEBU. NEB SCH ×4 (07:51→19:57)
[2019-04-01] MEDS: CALCIUM CARB/VIT D3 500/200 TABLET. PO SCH (08:00)
[2019-04-01] MEDS: NYSTATIN TOPICAL POWDER 15GM BOTTLE. TP SCH ×2 (09:00→20:58)
[2019-04-01] MEDS: DOCUSATE SODIUM 100 MG CAPSULE. PO SCH ×2 (09:00→20:55)
[2019-04-01] MEDS: ASPIRIN ENTERIC COATED 81 MG TABLET.DR. PO SCH (09:00)
[2019-04-01] MEDS: LEVOTHYROXINE 100 MCG TABLET PO SCH (09:00)
[2019-04-01] MEDS: CITALOPRAM 10 MG TABLET. PO SCH (09:00)
[2019-04-01] MEDS: LOSARTAN POTASSIUM 50 MG TABLET. PO SCH (09:00)
[2019-04-01] MEDS: MEMANTINE 5 MG TABLET. PO SCH ×2 (09:00→20:55)
[2019-04-01] MEDS ORDERED: MIDAZOLAM HCL/PF 2 MG/2 ML VIAL. ONE (10:10)
[2019-04-01] MEDS ORDERED: MORPHINE SULFATE 10 MG/ML VIAL. ONE (10:11)
[2019-04-01] MEDS ORDERED: LIDOCAINE 1% Multi-Dose 20 ML VIAL. ONE (10:16)
--- NOTE | 2019-04-01 10:24 | PDOC ---
MODERATE SEDATION ASSESSMENT RISKS/ALTERNATIVES Risks/Alternatives Risks and alternatives of this type of sedation and procedure discussed with: RISK/ALTERNATIVES: Patient H & P ON CHART H & P H & P on chart and reviewed for co-morbid conditions and appropriate labs. H&P ON CHART: Yes STATUS PREG STATUS ASSESSED: Yes MEDS/ALLERGIES REVIEWED Meds/Allergies Reviewed Medications and Allergies including time and route of recently administered narcotics and sedatives. MEDS/ALLERGIES REVIEWED: Yes ASA RATING ASA RATING: II AIRWAY ASSESSMENT Airway Assessment Airway patency, oral function limitations, presence of caps, crowns, dentures, partials, and ability to extend neck assessed. AIRWAY ASSESSMENT: Yes MALLAMPATI SCORE MALLAMPATI SCORE: II PRE-SEDATION ASSESSMENT PRE-SEDATION ASSESSMENT: Yes CHINYERE SANDHU MD Apr 01, 2019 10:24
[2019-04-01] MEDS: IV NORMAL SALINE 1000ML BAG 1,000 ML IV SCH ×2 (11:10→21:30)
[2019-04-01] MEDS ORDERED: NITROGLYCERIN OINT 1 GM PACKET. ONE (11:13)
[2019-04-01] MEDS ORDERED: IODIXANOL 320 MG/ML 100 ML VIAL. IART ONE (11:30)
[2019-04-01] MEDS ORDERED: MORPHINE SULFATE 10 MG/ML VIAL. IV ONE (11:30)
[2019-04-01] MEDS ORDERED: MIDAZOLAM HCL/PF 2 MG/2 ML VIAL. IV ONE (11:30)
[2019-04-01] MEDS ORDERED: CONTRAST GIVEN. MC PRN (11:30)
[2019-04-01] MEDS ORDERED: LIDOCAINE 2% 20 ML VIAL. IJ ONE (11:30)
[2019-04-01] MEDS ORDERED: NITROGLYCERIN OINT 1 GM PACKET. TP ONE (11:30)
[2019-04-01] MEDS ORDERED: IV NORMAL SALINE 1000ML BAG 1,000 ML IV SCH (12:06)
[2019-04-01] MEDS ORDERED: NITROGLYCERIN SUBLINGUAL 0.4 MG BOTTLE OF 25. SL PRN (12:15)
[2019-04-01] MEDS ORDERED: 0.9 % SODIUM CHLORIDE 10 ML DISP.SYRIN. IV PRN (12:15)
--- NOTE | 2019-04-01 12:16 | HP ---
ADMIT DATE: 03/31/2019 HISTORY OF PRESENT ILLNESS: The patient is an 83-year-old female patient who was seen at the Emergency Room of [facility] with a complaint of chest pain and shortness of breath. She reported increasing chest discomfort and shortness of breath for the last couple of days when she stated that her chest felt very heavy. Denied any change in medication. Denied any nausea or vomiting. Denied any diaphoresis. Given that she has multiple admissions with this complaint, decision was made to transfer her to [facility] for cardiac catheterization. In fact she has 2 sets of cardiac enzymes that showed troponin to be less than 0.017 and her EKG showed that she was in sinus rhythm at a rate of [address] segment elevation. Her fasting lipid profile showed her serum triglycerides were 205, total cholesterol 170, LDL was 88, VLDL was 41, HDL was 44 and ratio was 4. Her TSH was slightly elevated at 5.636. PAST MEDICAL HISTORY: Significant for hypothyroidism, chronic back pain, morbid obesity, degenerative joint disease, history of syncope for which she had an outpatient loop recorder done before. She has history of pancreatitis, history of acute cholecystitis and pyloric stenosis. PAST SURGICAL HISTORY: Significant for tonsillectomy, loop recorder placement, laparoscopic cholecystectomy, esophagogastroduodenoscopy with dilatation of the pyloric stenosis. FAMILY HISTORY: She has 1 younger brother who has cognitive impairment. Her father because of cancer. SOCIAL HISTORY: She apparently has 3 children, 1 son and 2 daughters. She does not smoke, drink alcohol or do recreational drugs. She currently lives with her family. ALLERGIES: She has no known drug allergies. MEDICATIONS: She is currently on following medications: She is on Aricept 10 mg at bedtime, ipratropium bromide, albuterol sulfate in 3 mL by nebulizer 4 times a day, atorvastatin calcium 10 mg at bedtime, losartan potassium 50 mg once a day, aspirin 81 mg once a day, hydrocodone/APAP 5/325 one tablet every 6 hours, Tylenol 650 mg every 6 hours, citalopram hydrobromide 10 mg daily, lorazepam 0.5 mg every 6 hours, Namenda 5 mg twice a day, calcium carbonate with vitamin D3 one tablet once a day, Colace 100 mg twice a day, ondansetron 4 mg every 8 hours, Protonix 40 mg once a day, levothyroxine sodium 100 mcg daily, Nystatin powder apply topically twice a day, melatonin 3 mg at bedtime. PHYSICAL EXAMINATION: GENERAL: On examining her this morning, she looked well and was clearly in no apparent respiratory distress, pale, no jaundice, cyanosis or thyromegaly. No jugular venous distention. No lower limb edema. VITAL SIGNS: Her heart rate was 62, blood pressure was 110/78, temperature was 98.4, respiratory rate was 16, and oxygen saturation was 97% on room air. HEAD, EYES, EARS, NOSE AND THROAT: Showed normocephalic, atraumatic. NECK: Supple. HEART: Showed normal first and second heart sounds with no gallop, rub or murmur. CHEST: Clear to auscultation. No crepitation or rhonchi. ABDOMEN: Distended, soft, nontender. NEUROLOGIC: She is demented, but without any obvious lateralizing sign. EXTREMITIES: She moves extremities without difficulty, although she is able to walk with a walker. She normally refused to participate with physical therapy. She also a lot of time refused to take her medication. PLAN: To obviously consult a customer care consultant for cardiac catheterization as planned and then decide on further management accordingly. ALEXY LIN MD DR: NATALIE/jackie JOB#: [id number] / [id number]
--- NOTE | 2019-04-01 12:46 | NUR ---
SS following for discharge planning. SS reviewed pt chart. Pt is from home with family and is currently on room air. No discharge needs noted at this time. SS will continue to follow for discharge planning.
--- NOTE | 2019-04-01 15:04 | CARD ---
MR#: [id number] Date of Study: 04/01/2019 Ordering Physician: CARMEN CORDOVA, Referring Physician: Dia DAI: Glenda Dawson RT (R) APPROVED REPORT Procedures Left heart catheterization Selective coronary angiogram The patient is an 83-year-old female who was admitted to [facility] for episodes of chest discomfort. The patient ruled out but her history is significant for multiple hospital admissions over the past few months for episodes of chest pain. The patient reports her pain was more intense on this admissio n and therefore she was transferred to [place] for heart catheterization to provide a definitive d iagnosis of possible coronary disease in the setting of recurrent chest pain. Risks and benefits of t he procedure were discussed with the patient. She agreed to proceed. After informed consent was obtained the patient was brought to the heart catheterization lab. The are a of the right femoral artery and vein was prepared the usual manner with Betadine, sterile draping a nd local anesthetic. An 18-gauge needle was used to enter the right femoral artery, a wire placed and a 6 Qatari sheath placed over the wire. An 18-gauge needle was used to enter the right femoral vein. , a wire placed and a 5 Qatari sheath placed over the wire . This was secondary to a lack of venous access with the patient. Using a J-wire for all exchanges, a JL 4 diagnostic catheter was used to en bernice the left coronary system and sequential injections in various views were obtained. A 6 Qatari Wi lliams right diagnostic catheter was used to engage the right coronary artery and sequential injectio ns in various views were obtained. A pigtail catheter was advanced to the left ventricle. Pressures w ere obtained. No left ventriculogram was performed. Pullback pressures were measured. The catheter wa s removed from the patient. Injection the sheath showed normal placement. The sheath was removed and sealed with an Angio-Seal product. The patient was moved to the holding area in stable condition. Findings. Hemodynamics. LV pressure of 140/16, 20. Aortic root pressure of 136/64. Coronaries. Left main. The left main was a moderate size vessel. It had no lesions. Left anterior descending. The LAD was a moderate size vessel that tapered into a smaller distal vesse l. It had a 10% mid to proximal smooth lesion. Left circumflex. The left circumflex was also a moderate size vessel that tapered into a small vessel . There were no lesions. Right coronary artery. The right coronary was a moderate size dominant vessel. It had no lesions. <Conclusion> No significant coronary artery lesions with minimal disease in the proximal LAD. Distal small vessels in the left system. Mildly elevated LVEDP. Signed by : Lee Menchaca MD Electronically Approved : 04/01/2019 15:03:39
[2019-04-01] MEDS: DONEPEZIL HCL 10 MG TABLET. PO SCH (20:55)
[2019-04-01] MEDS ORDERED: ATORVASTATIN CALCIUM 10 MG TABLET. PO SCH (21:00)
[2019-04-02 03:30] VITALS: BP 121/69
[2019-04-02 07:00] VITALS: BP 110/43
[2019-04-02] MEDS: IV NORMAL SALINE 1000ML BAG 1,000 ML IV SCH (07:30)
[2019-04-02 07:43] LABS: BASO % 0 % (0-3); EOS # 0.2 x10^3/uL (0.0-0.7); EOS % 8 % (0-3); HEMATOCRIT 31.3 % (36.0-47.0); HEMOGLOBIN 10.6 g/dL (12.0-15.5); LYMPH # 0.7 x10^3/uL (1.0-4.8); LYMPH % 26 % (24-48); MEAN CORPUSCULAR HEMOGLOBIN 33 pg (25-35); MEAN CORPUSCULAR HGB CONC 34 g/dL (31-37); MEAN CORPUSCULAR VOLUME 96 fL (79-100); MONO # 0.3 x10^3/uL (0.0-1.1); MONO % 10 % (0-9); NEUT # 1.6 x10^3uL (1.8-7.7); NEUT % 57 % (31-73); PLATELET COUNT 96 x10^3/uL (140-400); RED BLOOD COUNT 3.26 x10^6/uL (3.50-5.40); RED CELL DISTRIBUTION WIDTH 14.4 % (11.5-14.5); WHITE BLOOD COUNT 2.8 x10^3/uL (4.0-11.0)
[2019-04-02 08:04] LABS: CALCIUM 9.2 mg/dL (8.5-10.1); CREATININE 1.8 mg/dL (0.6-1.0); POTASSIUM 4.1 mmol/L (3.5-5.1)
[2019-04-02] MEDS: CITALOPRAM 10 MG TABLET. PO SCH (08:34)
[2019-04-02] MEDS: MEMANTINE 5 MG TABLET. PO SCH (08:34)
[2019-04-02] MEDS: PANTOPRAZOLE 40 MG TABLET.DR. PO SCH (08:34)
[2019-04-02] MEDS: CALCIUM CARB/VIT D3 500/200 TABLET. PO SCH (08:34)
[2019-04-02] MEDS: DOCUSATE SODIUM 100 MG CAPSULE. PO SCH (08:34)
[2019-04-02] MEDS: LOSARTAN POTASSIUM 50 MG TABLET. PO SCH (08:34)
[2019-04-02] MEDS: ASPIRIN ENTERIC COATED 81 MG TABLET.DR. PO SCH (08:34)
[2019-04-02] MEDS: LEVOTHYROXINE 100 MCG TABLET PO SCH (08:34)
[2019-04-02] MEDS: NYSTATIN TOPICAL POWDER 15GM BOTTLE. TP SCH (08:36)
[2019-04-02] MEDS: IPRATRPIUM/ALBUTEROL 0.5/2.5MG 3 ML NEBU. NEB SCH ×3 (08:58→15:01)
[2019-04-02 11:00] VITALS: BP 146/59
--- NOTE | 2019-04-02 12:05 | DS ---
DATE OF DISCHARGE: HOSPITAL COURSE: The patient is an 83-year-old female patient, who was admitted to [facility] with chest pain. She has been coming to the hospital for multiple times and a decision was made to transfer her to [facility] and she underwent cardiac catheterization, which showed that the patient has no significant coronary artery lesion with minimal disease in the proximal left anterior descending. She has distal small vessel in the left system. She has mildly elevated left ventricular end diastolic pressure. The patient was continued on IV fluid as her kidney function was abnormal and likely her kidney function remained stable without any change. When I saw her this morning, she was sitting slightly propped up in bed, in no apparent distress. Awake and alert. On questioning her, denied any complaint, in particular denied any chest pain or shortness of breath. OBJECTIVE: GENERAL: When I examined her, she looked somewhat pale, but no jaundice, cyanosis, or thyromegaly. No jugular venous distension. No limb edema. VITAL SIGNS: Heart rate was 54, blood pressure 110/43, temperature was 98.7, respiratory rate was 18, and oxygen saturation was 94%. HEENT: Showed normocephalic, atraumatic. NECK: Supple. HEART: Showed normal first and second heart sounds with no gallop, rub, or murmur. CHEST: Clear to auscultation. No crepitation or rhonchi. ABDOMEN: Distended, soft, nontender. No guarding or rigidity. No organomegaly. All hernial orifice intact. Bowel sounds normal. NEUROLOGIC: She was demented, but without any obvious lateralizing sign. All her cranial nerves are intact. She moves extremities without difficulty. She ambulates with a walker. Her intake and output are incompletely recorded. LABORATORY DATA: Showed a white cell count of 2800, hemoglobin 10.6, hematocrit 31.3, MCV 96, and platelet count of 96,000. Her chemistry showed a serum sodium 139, potassium 4.1, chloride 106, bicarbonate 25, anion gap of 8, BUN 20, creatinine 1.8, estimated GFR was 27 mL per minute, his glucose was 108, and calcium was 9.2. DISCHARGE MEDICATIONS: She was discharged home to continue on Tylenol 650 mg every 6 hours as needed, aspirin 81 mg once a day, atorvastatin 10 mg at bedtime, calcium carbonate with vitamin D one tablet once a day, citalopram hydrobromide 10 mg daily, Colace 100 mg twice a day, Aricept 10 mg at bedtime, hydrocodone/APAP 5/325 one tablet every 6 hours, ipratropium bromide, albuterol sulfate, DuoNeb by nebulizer 4 times a day, levothyroxine sodium 100 mcg daily, lorazepam 0.5 mg every 6 hours as needed, losartan potassium 50 mg daily, melatonin 3 mg at bedtime, Namenda 5 mg twice a day, nystatin powder applied topically twice a day, ondansetron 4 mg every 4 hours, and Protonix 40 mg daily. FINAL DISCHARGE DIAGNOSES: Atypical chest pain, myocardial infarction ruled out, with normal three sets of cardiac enzymes. Cardiac catheterization showed minimal disease in the left main. Other medical problems including: A. Hypothyroidism. B. Recurrent syncope, which she had an outpatient loop recorder done before. C. Chronic back pain. D. Morbid obesity. E. Degenerative joint disease. F. She also has history of pancreatitis. G. History of acute cholecystitis. H. Pyloric stenosis. ALEXY LIN MD DR: NATALIE/jackie JOB#: [id number] / [id number]
[2019-04-02] MEDS: HYDROcodone/APAP 5/325MG 1 TAB TABLET PO PRN (13:59)
== END 2019-04-02 15:21 | disposition home or self-care (01) | DRG 287 ==
LOC: 2 NORTH 14:28
PROVIDERS: ADMIT Internal Medicine; ATTEND Internal Medicine
PROC: 4A023N7 Measurement of Cardiac Sampling and Pressure, Left Heart, Percutaneous Approach (ICD-10-PCS; principal; 2019-04-01)
PROC: B2111ZZ Fluoroscopy of Multiple Coronary Arteries using Low Osmolar Contrast (ICD-10-PCS; 2019-04-01)
DX: R07.89 Other chest pain (principal); K31.1 Adult hypertrophic pyloric stenosis; E03.9 Hypothyroidism, unspecified; E66.01 Morbid (severe) obesity due to excess calories; F03.90 Unspecified dementia, unspecified severity, without behavioral disturbance, psychotic disturbance, mood disturbance, and anxiety; M54.9 Dorsalgia, unspecified; G89.29 Other chronic pain; M19.90 Unspecified osteoarthritis, unspecified site; Z79.899 Other long term (current) drug therapy; Z88.8 Allergy status to other drugs, medicaments and biological substances; Z90.49 Acquired absence of other specified parts of digestive tract
CPT/HCPCS: 93458; G0269; 36415; 80048; 85025; 94640; 99152; 99153; C1760; C1769; C1892; J1644; J2001; J2250; J2270; J7030; J7620; Q0162; Q9967; C1771

== ENCOUNTER 2020-06-11 01:23 | Inpatient (IN) | payer MEDICARE ==
[~2020-06-11] VITALS: Ht 162.6 cm; Wt 89.2 kg
[~2020-06-11 01:23] MED LIST changes: -ACET325C5 PO; +ACET325C6 PO; +ATOR10TA60 PO; +IPRA3AMP29 NEB; -LEVO75TA PO; +LEVO75TA90 PO; -MELA3TAB2 PO; +MELA3TAB4 PO
[2020-06-11 02:04] LABS: BASO % 1 % (0-3); EOS # 0.1 x10^3/uL (0.0-0.7); EOS % 4 % (0-3); LYMPH # 0.9 x10^3/uL (1.0-4.8); LYMPH % 30 % (24-48); MEAN CORPUSCULAR HEMOGLOBIN 33 pg (25-35); MEAN CORPUSCULAR HGB CONC 35 g/dL (31-37); MEAN CORPUSCULAR VOLUME 96 fL (79-100); MONO # 0.4 x10^3/uL (0.0-1.1); MONO % 12 % (0-9); NEUT # 1.7 x10^3/uL (1.8-7.7); NEUT % 54 % (31-73); PLATELET COUNT 126 x10^3/uL (140-400); RED BLOOD COUNT 3.34 x10^6/uL (3.50-5.40); RED CELL DISTRIBUTION WIDTH 13.3 % (11.5-14.5); WHITE BLOOD COUNT 3.1 x10^3/uL (4.0-11.0)
[2020-06-11 02:11] LABS: CALCIUM 8.9 mg/dL (8.5-10.1); CREATININE 1.8 mg/dL (0.6-1.0); GFR 26.9; POTASSIUM 3.6 mmol/L (3.5-5.1)
--- NOTE | 2020-06-11 02:46 | RAD ---
Study: CR CHEST PA LATERAL Indication: Chest pain. Comparison: 05/15/2018 Findings: The cardiomediastinal silhouette is at the upper limits of normal for size. Tortuous aorta. No overt central vascular congestion. Ill-defined infiltrates at the right lung base are more conspicuous from the prior. Similar aeration pattern of the left lung. No layering effusion or pneumothorax. Loop recorder device. Osteopenia and scattered chronic osseous findings. Presumed hiatal hernia. Impression: Mild ill-defined infiltrates at the right lung base are more conspicuous from the comparison. Atelectasis or scarring is favored over an infectious process unless clinical findings suggest the latter. Otherwise no significant interval change from 05/15/2018. Electronically signed by: NICOLE WEEKS MD (06/11/2020 2:44 AM) [id number]
[2020-06-11] MEDS ORDERED: MORPHINE SULFATE 10 MG/ML VIAL. IV ONE (03:00)
[2020-06-11 03:08] LABS: C-REACTIVE PROTEIN 1.8 mg/L (0-3.3)
--- NOTE | 2020-06-11 06:25 | PHYS DOC ---
Past Medical History Past Medical History: Dementia, Hypertension, Other Additional Past Medical Histor: POOR HISTORIAN (BINDU GARNER MD) Past Surgical History: Other Additional Past Surgical Histo: UNKNOWN-POOR HISTORIAN (BINDU GARNER MD) Smoking Status: Never Smoker Alcohol Use: None Drug Use: None (BINDU GARNER MD) General Adult EDM: Chief Complaint: CHEST PAIN HPI: HPI: Patient is a 85 year old female who presents to the Emergency Room complaining of chest pain. She denies shortness of breath, cough, URIs, fever, abdominal pain, nausea, vomiting. She believes she has been seen for this previously and t hings were normal. History limited due to dementia. (BINDU GARNER MD) Review of Systems: Review of Systems: General: Denies fever, chills, sweats, fatigue Eyes: Denies drainage, blurred vision, eye redness HENT: Denies rhinorrhea, sore throat, earache Respiratory: Denies cough, shortness of breath, wheezing Cardiac: Denies edema, palpitations. Reports chest pain GI: Denies abdominal pain, Nausea, vomiting MSK: Denies back pain, neck pain Skin: Denies rash, jaundice Neuro: Denies headache, dizziness Psychiatric: Denies SI/HI (BINDU GARNER MD) Heart Score: Risk Factors: Risk Factors: DM, Current or recent (<one month) smoker, HTN, HLP, family history of CAD, obesity. Risk Scores: Score 0 - 3: 2.5% MACE over next 6 weeks - Discharge Home Score 4 - 6: 20.3% MACE over next 6 weeks - Admit for Clinical Observation Score 7 - 10: 72.7% MACE over next 6 weeks - Early Invasive Strategies (BINDU GARNER MD) Current Medications: Current Medications Medications (Trade) Dose Ordered Sig/Mee Start Time Stop Time Status Last Admin Dose Admin Morphine Sulfate (Morphine Sulfate) 5 mg 1X ONCE 06/11/20 03:00 06/11/20 03:01 DC 06/11/20 02:59 5 MG (BINDU GARNER MD) Allergies: Allergies: Allergies Coded Allergies Type Severity Reaction Last Updated Verified No Known Medication Allergies Allergy Unknown 03/09/19 Yes fentanyl Adverse Reaction Severe 03/11/19 Yes (BINDU GARNER MD) Physical Exam: PE: General: Awake, alert, NAD. Well Nourished, well hydrated. Cooperative HEENT: Atraumatic, EOMI, PERRL, airway patent, moist oral mucosa Neck: Supple, trachea midline Respiratory: CTA bilaterally, normal effort, no wheezing/crackles CV: RRR, no murmur, cap refill <2 GI: Soft, nondistended, nontender, no masses MSK: No obvious deformities Skin: Warm, dry, intact Neuro: A&O x1, speech NL, sensory and motor grossly intact, no focal deficits, confusion Psych: Normal affect, normal mood, not suicidal or homicidal (BINDU GARNER MD) Current Patient Data: Labs: Laboratory Tests Test 06/11/20 01:46 White Blood Count 3.1 x10^3/uL (4.0-11.0) L Red Blood Count 3.34 x10^6/uL (3.50-5.40) L Hemoglobin 11.0 g/dL (12.0-15.5) L Hematocrit 32.0 % (36.0-47.0) L Mean Corpuscular Volume 96 fL (79-100) Mean Corpuscular Hemoglobin 33 pg (25-35) Mean Corpuscular Hemoglobin Concent 35 g/dL (31-37) Red Cell Distribution Width 13.3 % (11.5-14.5) Platelet Count 126 x10^3/uL (140-400) L Neutrophils (%) (Auto) 54 % (31-73) Lymphocytes (%) (Auto) 30 % (24-48) Monocytes (%) (Auto) 12 % (0-9) H Eosinophils (%) (Auto) 4 % (0-3) H Basophils (%) (Auto) 1 % (0-3) Neutrophils # (Auto) 1.7 x10^3/uL (1.8-7.7) L Lymphocytes # (Auto) 0.9 x10^3/uL (1.0-4.8) L Monocytes # (Auto) 0.4 x10^3/uL (0.0-1.1) Eosinophils # (Auto) 0.1 x10^3/uL (0.0-0.7) Basophils # (Auto) 0.0 x10^3/uL (0.0-0.2) D-Dimer (Leaine) 1.57 ug/mlFEU (0.00-0.50) H Sodium Level 143 mmol/L (136-145) Potassium Level 3.6 mmol/L (3.5-5.1) Chloride Level 105 mmol/L (98-107) Carbon Dioxide Level 28 mmol/L (21-32) Anion Gap 10 (6-14) Blood Urea Nitrogen 23 mg/dL (7-20) H Creatinine 1.8 mg/dL (0.6-1.0) H Estimated GFR (Cockcroft-Gault) 26.9 Glucose Level 84 mg/dL (70-99) Calcium Level 8.9 mg/dL (8.5-10.1) Lactate Dehydrogenase 236 U/L (81-234) H Troponin I Quantitative < 0.017 ng/mL (0.000-0.055) C-Reactive Protein, Quantitative 1.8 mg/L (0-3.3) HN-Hfk-Q-Type Natriuretic Peptide 1999 pg/mL (0-449) H Laboratory Tests 06/11/20 01:46 Laboratory Tests 06/11/20 01:46 Vital Signs: Vital Signs Date Time Temp Pulse Resp B/P (MAP) Pulse Ox O2 Delivery O2 Flow Rate FiO2 06/11/20 02:59 18 98 Room Air 06/11/20 01:26 98.2 58 153/67 (95) 98.2 (BINDU GARNER MD) EKG: EKG: [] (BINDU GARNER MD) Radiology/Procedures: Radiology/Procedures: [] (BINDU GARNER MD) Course & Med Decision Making: Course & Med Decision Making Pertinent Labs and Imaging studies reviewed. (See chart for details) Patient is an 85-year-old female presents the emergency room complaining of chest pain. Chest pain is reproducible on exam. She generally appears well. Cardiac work-up, COVID risk stratifying labs, d-dimer were ordered. Patient does not have any fever, cough, URI symptoms that would be suggestive of coronavirus and does not need a coronavirus test at this time. D-dimer was elevated. VQ scan was ordered due to kidney function. I discussed the patient with Dr. Perea who states that patient is at her mental baseline. He states that she often complains of chest pain and this is unchanged from prior. He states that she has had multiple work-ups in the last year including a cardiac cath that was normal at [facility]. He recommends ensuring that labs are normal and that the VQ scan is normal and then discharging her back to the nursing facility. He will see her in the facility later today. Patient was discussed with oncoming physician who will assume care. At time of checkout VQ scan was pending. (BINDU GARNER MD) Course & Med Decision Making Urine for chest pain in a demented patient, makes history difficult. D-dimer is elevated with intermediate probability on perfusion study. Due to chronic ki dney disease will not do a CT Radha of the chest. I discussed this with Dr. Hanson who recommends admission. Lower extremity ultrasound ordered. Will admit for further medical management-may benefit from IVC filter. Nephro consulted. (NANDA ACUÑA DO) Dragon Disclaimer: Dragon Disclaimer: This electronic medical record was generated, in whole or in part, using a voice recognition dictation system. (BINDU GARNER MD) Departure Departure Impression: Primary Impression: Chest pain Additional Impressions: Dementia Elevated d-dimer Disposition: ADMITTED INPATIENT Admitting Physician: Madi. Parker (NANDA ACUÑA DO) Condition: STABLE Referrals: NADEGE WILLSON MD (PCP) Justicifation of Admission Dx: Justifications for Admission: Justification of Admission Dx: N/A (BINDU GARNER MD) Justification of Admission Dx: Yes Angina: [facility] (NANDA ACUÑA DO) BINDU GARNER MD Jun 11, 2020 06:25 NANDA ACUÑA DO Jun 11, 2020 10:33
--- NOTE | 2020-06-11 07:52 | EKG ---
[facility] [address] [place] [address] Test Date: 2020-06-11 Test Time: 01:35:36 Pat Name: DOROTA BINGHAM Department: Room: Gender: F Manager Commission: : [id number] Requested By: BINDU GARNER Order Number: [id number] Reading MD: Measurements Intervals [place] Rate: 56 P: MN: QRS: 32 QRSD: 94 T: 169 QT: 482 QTc: 468 Interpretive Statements IRREGULAR RHYTHM, NO P-WAVE FOUND LVH WITH REPOLARIZATION ABNORMALITY ABNORMAL ECG RI6.02 No previous ECG available for comparison
--- NOTE | 2020-06-11 09:27 | RAD ---
Indication: Reason: sob, elevated DDimer / Spl. Instructions: / History: Technique: Static images are obtained of both lungs following following IV administration of 5.5 mCi of 99 M technetium MAA. Comparison: Chest x-ray from same day Findings: There are some patchy perfusion defects within the bilateral lungs. Given lack of ventilation images cannot assess whether these are matched or mismatched defects Impression: 1. Intermediate probability for pulmonary embolus. Electronically signed by: Zoran Hernandez MD (06/11/2020 9:24 AM) [id number]
[2020-06-11] MEDS ORDERED: ACETAMINOPHEN 325 MG TABLET. PO ONE (11:15)
[2020-06-11 13:00] VITALS: BP 145/57
[2020-06-11 15:00] VITALS: BP 155/64
[2020-06-11] MEDS ORDERED: POLY119P19 PO (15:29)
[2020-06-11] MEDS ORDERED: QUET25TA PO (15:29)
[2020-06-11] MEDS ORDERED: SERT50TA PO (15:29)
[2020-06-11] MEDS ORDERED: LACT1CAP48 PO (15:29)
[2020-06-11] MEDS ORDERED: MINE454C9 TP (15:29)
[2020-06-11] MEDS ORDERED: FOLI0.8C PO (15:29)
[2020-06-11] MEDS ORDERED: MAG-115 PO (15:29)
[2020-06-11] MEDS ORDERED: MAGN24003 PO (15:29)
[2020-06-11] MEDS ORDERED: ONDA-84 PO (15:29)
[2020-06-11] MEDS ORDERED: LORA0.5T96 PO (15:29)
[2020-06-11] MEDS ORDERED: OLAN5TAB9 PO (15:29)
[2020-06-11] MEDS ORDERED: MIRT7.5T8 PO (15:29)
[2020-06-11] MEDS ORDERED: CYAN100031 PO (15:29)
--- NOTE | 2020-06-11 15:35 | RAD ---
EXAM: Bilateral lower extremity venous Doppler. HISTORY: Bilateral lower extremity swelling. COMPARISON: Bilateral venous duplex ultrasound of 04/06/2020 FINDINGS: Grayscale and Doppler analysis of the both lower extremity deep venous systems was performed with graded compression and augmentation. The common femoral, greater saphenous, superficial femoral, popliteal and calf veins were assessed. Synechiae or webs are identified in the bilateral femoral veins as well as chronic appearing eccentric filling defect in the bilateral popliteal veins and posterior tibial veins and to a lesser extent, the peroneal veins. Fluid collection in the right popliteal fossa measuring 4.4 x 2.5 x 0.6 cm is compatible with a Martino's cyst as well. IMPRESSION: 1. 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 2. Incidental 4.4 x 2.5 x 0.6 cm right popliteal cyst. FOR INTERNAL CODING PURPOSES Critical result: Findings discussed with NANDA ACUÑA at 06/11/2020 3:28 PM. RESULT CODE: (C) Electronically signed by: Marcela Tarango MD (06/11/2020 3:32 PM) [id number]
[2020-06-11] MEDS ORDERED: ANTI-COAG MONITOR BY PHARMACY. MC PRN (17:30)
[2020-06-11] MEDS ORDERED: MINERAL OIL/PETROLATUM TOPICAL CREAM 113GM JAR. TP PRN (18:45)
[2020-06-11] MEDS ORDERED: LORazepam 0.5 MG TABLET PO PRN (18:45)
[2020-06-11] MEDS ORDERED: ONDANSETRON ODT 4 MG TAB.RAPDIS. PO PRN (18:45)
[2020-06-11] MEDS ORDERED: MAG HYDROX/ALUMINUM HYD/SIMETH 30 ML ORAL.SUSP PO PRN (18:45)
[2020-06-11 19:00] VITALS: BP 136/92
[2020-06-11] MEDS ORDERED: ACETAMINOPHEN 325 MG TABLET. PO PRN (19:00)
[2020-06-11] MEDS ORDERED: MAGNESIUM HYDROXIDE 2,400 MG/30 ML ORAL.SUSP. PO PRN (19:00)
[2020-06-11] MEDS ORDERED: OLANZapine 5 MG TABLET PO SCH (21:00)
[2020-06-11] MEDS ORDERED: NYSTATIN TOPICAL POWDER 15GM BOTTLE. TP SCH (21:00)
[2020-06-11] MEDS ORDERED: MIRTAZAPINE 7.5 MG TABLET. PO SCH (21:00)
[2020-06-11] MEDS ORDERED: DONEPEZIL HCL 10 MG TABLET. PO SCH (21:00)
[2020-06-11] MEDS ORDERED: NON FORMULARY ITEM (Melatonin 1 TAB) PO SCH (21:00)
[2020-06-11] MEDS: HYDROcodone/APAP 5/325MG 1 TAB TABLET PO PRN (21:17)
[2020-06-11] MEDS: APIXABAN 5 MG TABLET. PO SCH (21:18)
[2020-06-11] MEDS: LACTOBACILLUS RHAMNOSUS GG 1 CAPSULE. PO SCH (21:18)
[2020-06-11] MEDS: QUEtiapine 25 MG TABLET. PO SCH (21:18)
[2020-06-11] MEDS: MEMANTINE 10 MG TABLET. PO SCH (21:19)
[2020-06-11 23:00] VITALS: BP 100/63
[2020-06-12 03:00] VITALS: BP 115/52
[2020-06-12] MEDS: HYDROcodone/APAP 5/325MG 1 TAB TABLET PO PRN (06:25)
[2020-06-12 07:00] VITALS: BP 116/43
[2020-06-12] MEDS ORDERED: LEVOTHYROXINE 100 MCG TABLET PO SCH (07:00)
[2020-06-12] MEDS ORDERED: PANTOPRAZOLE 40 MG TABLET.DR. PO SCH (07:30)
--- NOTE | 2020-06-12 08:17 | PDOC ---
Provider Note Provider Note IR NOTE 85 year old patient with chronic appearing DVT bilaterally, which are mild/ non occlusive. She presented with chest pain and was also found to have a patchy non specific defects on a nuclear perfusion lung scan. She has been started on Eliquis. No current indication for IVC filter, particularly if she is to remain on anticoagulation. LILY SAMPSON MD Jun 12, 2020 08:17
[2020-06-12] MEDS ORDERED: POLYETHYLENE GLYCOL 3350 17 GM PACKET. PO SCH (09:00)
[2020-06-12] MEDS ORDERED: CYANOCOBALAMIN (VITAMIN B-12) 1,000 MCG TABLET. PO SCH (09:00)
[2020-06-12] MEDS ORDERED: CALCIUM CARB/VIT D3 500/200 TABLET. PO SCH (09:00)
[2020-06-12] MEDS ORDERED: FOLIC ACID 1 MG TABLET. PO SCH (09:00)
[2020-06-12] MEDS ORDERED: SERTRALINE 50 MG TABLET. PO SCH (09:00)
[2020-06-12] MEDS ORDERED: ASPIRIN ENTERIC COATED 81 MG TABLET.DR. PO SCH (09:00)
[2020-06-12] MEDS: APIXABAN 5 MG TABLET. PO SCH (09:50)
[2020-06-12] MEDS: MEMANTINE 10 MG TABLET. PO SCH (09:50)
[2020-06-12] MEDS: LACTOBACILLUS RHAMNOSUS GG 1 CAPSULE. PO SCH (09:51)
[2020-06-12] MEDS: QUEtiapine 25 MG TABLET. PO SCH (09:51)
--- NOTE | 2020-06-12 10:37 | SNU/HH DC ---
DISCHARGE ORDERS DISCHARGE INFORMATION: DISCHARGE DATE: Jun 12, 2020 FINAL DIAGNOSIS Problems Medical Problems: (1) Elevated d-dimer Status: Acute CONDITION ON DISCHARGE: Stable CODE STATUS: Code Status: Full RESIDENTIAL: SNF STAY <30 DAYS: Yes POST DISCHARGE ORDERS: ACTIVITY ORDERS: Activity as tolerated WEIGHT BEARING STATUS: As tolerated BATHING ORDERS: Shower-keep dressing dry DIET AFTER DISCHARGE: Regular WOUND/INCISION CARE: Other, see below CHECKS AFTER DISCHARGE: CHECKS AFTER DISCHARGE: Check blood press - daily, Check your Temp as needed TREATMENT/EQUIPMENT ORDERS: ADAPTIVE EQUIPMENT NEEDED: None Physical Therapy For: Evalulation/Treatment Occupational Therapy For: Evaluation/Treatment DISCHARGE MEDICATIONS: Home Meds Active Scripts Hydrocodone Bit/Acetaminophen (HYDROCODONE-APAP 5-325 ) 1 Tab Tablet, 1 TAB PO PRN Q6HRS PRN for PAIN for 30 Days, #120 TAB 0 Refills Prov:ALEXY LIN MD 03/15/19 Reported Medications Sertraline Hcl (ZOLOFT) 50 Mg Tablet, 1 TAB PO DAILY for depression, #30 TAB 2 Refills 06/11/20 Quetiapine Fumarate (QUETIAPINE FUMARATE) 25 Mg Tablet, 12.5 MG PO BID for alzheimers, TAB 20 Ondansetron Hcl (ONDANSETRON HCL) 4 Mg Tablet, 1 TAB PO PRN Q2HR PRN for NAUSEA, #10 TAB 1 Refill 06/11/20 Olanzapine (OLANZAPINE) 5 Mg Tablet, 0.5 TAB PO QHS for anxiety, #30 TAB 2 Refills 20 Mag Hydrox/Aluminum Hyd/Simeth (Mylanta Maximum Strength Liq) 355 Ml Oral.susp, 15 ML PO PRN DAILY PRN for DYSPEPSIA, MISC 20 Mirtazapine (MIRTAZAPINE) 7.5 Mg Tablet, 1 TAB PO QHS for alzheimers for 30 Days, #30 TAB 0 Refills 20 Magnesium Hydroxide (MILK OF MAGNESIA) 2,400 Mg/10 Ml Oral.susp, 2400 MG PO PRN DAILY PRN for CONSTIPATION, MISC 20 Lorazepam (ATIVAN) 0.5 Mg Tablet, 0.5 MG PO PRN Q6HRS PRN for ANXIETY / AGITATI ON, TAB 20 Lactobacillus Acidophilus (Acidophilus Lactobacilli) 1 Each Capsule, 1 EACH PO BID for supplement, CAP 06/11/20 Lanolin Alcohol/Mo/W.pet/[place] (Hydrocerin Cream) 454 Gm Cream..g., 454 GM TP PRN BID PRN for DRY SKIN / SCALING, EACH 06/11/20 Polyethylene Glycol 3350 (GLYCOLAX) 119 Gm Powder, 119 GM PO DAILY for constipation, MISC 06/11/20 Folic Acid (Folic Acid) 0.8 Mg Capsule, 1 CAP PO DAILY for supplement for 30 Days, #30 CAP 0 Refills 06/11/20 Cyanocobalamin (Vitamin B-12) (B-12) 1,000 Mcg Tablet.er, 1000 MCG PO DAILY for supplement, TAB.SR 06/11/20 Pantoprazole Sodium (PROTONIX) 20 Mg Tablet.dr, 2 TAB PO DAILY for heartburn prevention , #30 TAB 03/05/19 Nystatin (NYSTATIN) 15 Gm Powder, 1 AG TP BID for redness on skin folds , #1 BOTTLE 03/05/19 Memantine Hcl (NAMENDA) 10 Mg Tablet, 1 TAB PO BID for memory, #180 TAB 1 Refill 03/05/19 Melatonin (MELATONIN) 3 Mg Tablet, 1 TAB PO QHS for insomnia, #30 TAB 2 Refills 03/05/19 Levothyroxine Sodium (LEVOTHYROXINE SODIUM) 100 Mcg Tablet, 1 TAB PO DAILY for thyroid supplement , #30 TAB 5 Refills 03/05/19 Donepezil Hcl (DONEPEZIL HCL) 10 Mg Tablet, 10 MG PO HS for memory , TAB 03/05/19 Aspirin (ASPIR-LOW) 81 Mg Tablet.dr, 1 TAB PO DAILY for heart health , #30 TAB 3 Refills 03/05/19 Calcium Carbonate/Vitamin D3 (CALCIUM 500 + VIT D 200 CAPLET) 1 Each Tablet, 1 EACH PO DAILY for supplement, TAB 03/04/19 Acetaminophen (Tylenol) 325 Mg Capsule, 650 MG PO PRN Q6HRS PRN for PAIN, CAP 03/04/19 Discontinued Reported Medications Ipratropium/Albuterol Sulfate (DUONEB 0.5-3(2.5) MG/3 ML) 3 Ml Ampul.neb, 3 ML NEB QID for COPD, EACH 03/31/19 Atorvastatin Calcium (ATORVASTATIN CALCIUM) 10 Mg Tablet, 1 TAB PO DAILY for Hyperlipidemia, #30 TAB 5 Refills 03/31/19 Ondansetron (ONDANSETRON ODT) 4 Mg Tab.rapdis, 1 TAB PO PRN Q8HRS PRN for NAUSEA/VOMITING, #16 TAB 03/05/19 Losartan Potassium (LOSARTAN POTASSIUM) 50 Mg Tablet, 50 MG PO DAILY for HYPERTENSION, TAB 03/05/19 Docusate Sodium (DOCUSATE SODIUM) 100 Mg Capsule, 1 CAP PO BID for stool softner , #30 CAP 03/05/19 Citalopram Hydrobromide (CITALOPRAM HBR) 10 Mg Tablet, 1 TAB PO DAILY for mood, #30 TAB 3 Refills 03/04/19 ALEXY LIN MD Jun 12, 2020 10:37
[2020-06-12 11:00] VITALS: BP 101/44
--- NOTE | 2020-06-12 11:11 | DS ---
DATE OF DISCHARGE: HOSPITAL COURSE: The patient is an 85-year-old female patient who was admitted through the Emergency Room with complaint of chest pain, has had 2 sets of cardiac enzymes that ruled out acute myocardial infarction. Her D-dimer was elevated. The perfusion scan showed multiple defects, but no ventilation was done. We did Doppler ultrasound and showed she has bilateral lower extremity DVT and it transpired that she already has an IVC filter and therefore, I discontinued the Eliquis and she will be discharged back to [facility]. PHYSICAL EXAMINATION: GENERAL: When I saw her this morning, she was sitting on the edge of the bed, eating her breakfast comfortably, in no apparent distress. She had no further episode of chest pain or shortness of breath. Nursing staff did not voice any concern, I examined her, she looked pale, but no jaundice, cyanosis or thyromegaly. No jugular venous distention or limb edema. VITAL SIGNS: Her heart rate was 56, blood pressure was 116/43, temperature was 97.8, respiratory rate was 18 and oxygen saturation was 97% on room air. HEAD, EYES, EARS, NOSE AND THROAT: Showed normocephalic, atraumatic. NECK: Supple. CARDIAC: Normal first and second heart sounds. No gallop, rub or murmur. CHEST: Clear to auscultation. No crepitation or rhonchi. ABDOMEN: Distended, soft, nontender. NEUROLOGIC: She is demented, but without any obvious lateralizing sign. LABORATORY DATA: Showed a white cell count 3100, hemoglobin 11, hematocrit 32, MCV 96, and platelet count of 126,000 with normal manual differential. Her chemistry showed she had 2 sets of cardiac enzymes, showed troponin to be less than 0.017. Her C-reactive protein is 1.8. D-dimer is 1.57. Her serum sodium was 143, potassium 3.6, chloride 105, bicarbonate 28, anion gap of 10, BUN 23, creatinine 1.8, estimated GFR was 27 mL per minute. Her glucose 84, calcium was 8.9. DISCHARGE MEDICATIONS: She was discharged back to [facility] to continue on all her medications. I discontinued her Eliquis and gave her a prescription for hydrocodone and lorazepam. FINAL DISCHARGE DIAGNOSIS: Chest pain, atypical, acute myocardial infarction ruled out. The patient has bilateral DVT; however, she is noted to have an inferior vena cava filter placed, actually done on 03/23/[address] Salazar. Given her recurrent falls, I will discontinue her Eliquis for her safety. ALEXY LIN MD DR: NATALIE/jackie JOB#: [id number] / [id number]
--- NOTE | 2020-06-12 11:38 | HP ---
ADMIT DATE: 06/11/2020 HISTORY OF PRESENT ILLNESS: The patient is an 85-year-old female patient, a resident at [facility], who was brought to the Emergency Room with complaint of chest pain. She was extensively investigated in the Emergency Room and she has had 2 sets of cardiac enzymes that were negative and ruled out acute myocardial infarction. Her D-dimer was high at 1.57 and unfortunately, she has chronic kidney disease, so CT angio of the chest could not be done; and therefore, she underwent pulmonary perfusion imaging, which basically showed that there are some patchy perfusion defects within the bilateral lungs. Given lack of ventilation images, cannot assess whether these are matched or mismatched defects and the impression is that the patient has intermediate probability for pulmonary embolus; and therefore, we did actually venous Doppler ultrasound, showed that chronic DVT in the bilateral femoral veins and popliteal, anterior tibial and peroneal veins are described. She has also an incidental 4.4 x 2.5 x 0.6 cm right popliteal cyst and given the patient has multiple falls and syncopal episodes, I gave her 1 dose of apixaban and consulted Dr. Lynch to place an IVC filter. She is a high fall risk. PAST MEDICAL HISTORY: Significant for hypothyroidism, chronic back pain, morbid obesity, degenerative joint disease, history of syncope for which she has had an outpatient loop recorder done before. She has a history of pancreatitis, history of acute cholecystitis and pyloric stenosis. PAST SURGICAL HISTORY: Significant for tonsillectomy, loop recorder placement, laparoscopic cholecystectomy, esophagogastroduodenoscopy as well as dilatation of the pyloric stenosis. FAMILY HISTORY: She has one younger brother who has cognitive impairment. Her father because of cancer. SOCIAL HISTORY: She apparently has 3 children, 1 son and 2 daughters. She does not smoke, drink alcohol or use any recreational drugs. She is currently residing at [facility]. ALLERGIES: She has no known drug allergies. MEDICATIONS: She is currently on following medications: She is on Aricept 10 mg at bedtime, aspirin 81 mg once a day, hydrocodone/APAP one tablet every 6 hours, Tylenol 650 mg every 6 hours, mirtazapine 7.5 mg 1 tablet at bedtime, sertraline 50 mg daily, olanzapine she takes 0.5 mg at bedtime, Seroquel 12.5 mg twice a day, lorazepam 0.5 mg every 6 hours as needed, Namenda 10 mg twice a day, calcium carbonate with vitamin D one tablet once a day. She is on Mylanta 15 mL after meals and as needed, lactobacillus acidophilus 1 capsule twice a day, milk of magnesia 30 mL p.o. daily p.r.n. for constipation, polyethylene glycol 17 grams daily for constipation. She is also on ondansetron 4 mg every 2 hours as needed for nausea and vomiting, Protonix 20 mg once a day, levothyroxine sodium 100 mcg once a day, nystatin powder topically twice a day and Hydrocerin cream apply topically twice a day for dry skin, cyanocobalamin 1000-mcg tablet daily and folic acid 800 mcg once a day, melatonin 3 mg at bedtime. REVIEW OF SYSTEMS: As per history of present illness. PHYSICAL EXAMINATION: GENERAL: On arrival to the Emergency Room, the patient looked well and was clearly in no apparent respiratory distress, slightly pale, but no jaundice, cyanosis or thyromegaly. No jugular venous distention. No lower limb edema. VITAL SIGNS: Her heart rate was 65, blood pressure 145/57, temperature 97.6, respiratory rate was 18 and oxygen saturation was 94%. HEAD, EYES, EARS, NOSE AND THROAT: Normocephalic, atraumatic. NECK: Supple. HEART: Showed normal first and second heart sounds. No gallop, rub or murmur. CHEST: Clear to auscultation. No crepitation or rhonchi. ABDOMEN: Distended, soft, nontender. NEUROLOGIC: She is demented, but without any obvious lateralizing sign. All her cranial nerves intact. EXTREMITIES: She moves extremities without difficulty. She ambulates with a walker. Her intake and output are incompletely recorded. LABORATORY DATA: Her lab work on admission showed a white cell count of 3100, hemoglobin 11, hematocrit 32, MCV 96, and platelet count of 126,000. Her chemistry showed serum sodium 143, potassium 3.6, chloride was 105, bicarbonate 28, anion gap of 10, BUN 23, creatinine 1.8, estimated GFR was 27 mL per minute. Her glucose was 84, calcium was 8.9. Her lactate dehydrogenase was slightly high at 236 and her beta natriuretic peptide was 1999. C-reactive protein was 1.8. Her D-dimer is 1.57. The patient has a chest x-ray, which showed mild ill-defined infiltrate at the right lung base, more conspicuous from the comparison, atelectasis or scarring is favored over an infectious process unless clinical findings suggest the latter. Otherwise, no significant interval change from 05/15/2018. She has had pulmonary perfusion imaging, which showed that there are some patchy perfusion defects within the bilateral lungs. Given the lack of ventilation images, cannot assess whether these are matched or mismatched defects. She has had a venous Doppler ultrasound, which showed that the patient has chronic DVT in the bilateral femoral veins and popliteal, anterior tibial and peroneal veins are described. She has incidental finding of right popliteal cyst that measures 4.4 x 2.5 x 0.6 cm. ASSESSMENT AND PLAN: In summary, this is an 85-year-old female patient who basically unsteady on her feet and she had multiple syncopal episodes and multiple falls. I did start her yesterday on apixaban, but I consulted Dr. Lynch to place an IVC filter. Meanwhile, I reconciled all her other medications from before. ALEXY LIN MD DR: NATALIE/jackie JOB#: [id number] / [id number]
--- NOTE | 2020-06-12 12:56 | NUR ---
SW following. Spoke with RN and reviewed chart. Spoke with Dr. Perea. Pt to discharge back to [facility] today. TORRIE phoned and faxed clinicals and discharge orders/scripts to [facility], , (fax). Spoke with Nadira who is coordinating transportation and will call SW back with a time. RN to call report. Addendum: 06/12/20 at 1310 by RICKEY BROWNLEE Facility transport coming at 1400. Pt on room air and oral medications. RN notified of transport time. No further SW needs at this time.
== END 2020-06-12 14:00 | disposition home or self-care (01) | DRG 392 ==
LOC: ER 01:23 → ED HOLD 10:30 → 5 NORTH 11:49
PROVIDERS: ADMIT Internal Medicine; ATTEND Internal Medicine
DX: K21.9 Gastro-esophageal reflux disease without esophagitis (principal); E03.9 Hypothyroidism, unspecified; F03.90 Unspecified dementia, unspecified severity, without behavioral disturbance, psychotic disturbance, mood disturbance, and anxiety; I12.9 Hypertensive chronic kidney disease with stage 1 through stage 4 chronic kidney disease, or unspecified chronic kidney disease; M71.21 Synovial cyst of popliteal space [Baker], right knee; N18.9 Chronic kidney disease, unspecified; R29.6 Repeated falls; Z91.81 History of falling; Z95.828 Presence of other vascular implants and grafts; E66.01 Morbid (severe) obesity due to excess calories; G89.29 Other chronic pain; Z90.49 Acquired absence of other specified parts of digestive tract; Z68.33 Body mass index [BMI] 33.0-33.9, adult; Z88.8 Allergy status to other drugs, medicaments and biological substances; Z79.899 Other long term (current) drug therapy; Z86.718 Personal history of other venous thrombosis and embolism; Z79.01 Long term (current) use of anticoagulants
CPT/HCPCS: 36415; 71046; 78580; 80048; 83615; 83880; 84484; 85025; 85379; 86140; 93005; 93970; 96374; 99285; A9540; J2270; G0378

== ENCOUNTER 2021-08-19 06:49 | Emergency (ER) | payer MEDICARE ==
[~2021-08-19] VITALS: Ht 162.6 cm; Wt 136.4 kg
[~2021-08-19 06:49] MED LIST changes: -CITA10TA4 PO; +CITA10TA5 PO; +CYAN100031 PO; +FOLI0.8C PO; +LACT1CAP48 PO; +LORA0.5T96 PO; +MAG-115 PO; +MAGN24003 PO; +MINE454C9 TP; +MIRT7.5T8 PO; +OLAN5TAB67 PO; +ONDA-84 PO; +POLY119P19 PO; +QUET25TA3 PO; +SERT50TA PO
--- NOTE | 2021-08-19 06:59 | PHYS DOC ---
Past Medical History Past Medical History: Dementia, Hypertension, Other Additional Past Medical Histor: POOR HISTORIAN Past Surgical History: Other Additional Past Surgical Histo: UNKNOWN-POOR HISTORIAN Smoking Status: Never Smoker Alcohol Use: None Drug Use: None General Adult EDM: Chief Complaint: COUGH HPI: HPI: Patient is a 86 year old brought in by EMS from her long-term facility for reports of shortness of breath. The nursing staff had reportedly informed EMS that the patient is hypoxic. She is saturating 99% on room air currently. The patient is frustrated and reports that she is not sure why she is here. She does report that she has been coughing for some time. She reports shortness of breath for an unknown time. She reports having chest pain in the middle of her chest, unable to articulate any further details of this, unable to articulate details of radiation of pain quality pain, exacerbating or relieving factors. She reports no active pain at present however. She is a patient of Dr. Perea, and he called and inform me that the patient recently had a lower extremity Doppler revealing a DVT. Anticoagulation was not started secondary to the patient's fall history. He reports he was concerned about a possible PE. The patient is unsure if she is vaccinated against Covid. Per EMS, they report that they were told that she was fully vaccinated against Covid. The patient denies vomiting, diarrhea, abdominal pain. She denies dizziness, fall, head injury or headache. She is otherwise a very poor historian and persistently reports how frustrated she is at being told to wear a mask and reports that she does not want to be here. Review of Systems: Review of Systems: Constitutional: No reported fever HENT: Denies sore throat. Respiratory: Admits to cough and shortness of breath. Cardiovascular: Reports chest pain. GI: Denies abdominal pain, nausea, vomiting, diarrhea. Musculoskeletal: Reports "pain all over" Neurologic: Denies headache or syncope. Chronic memory loss and history of dementia. No reported acute mental status changes per EMS. Psychiatric: No reported acute mental status changes or acute mood changes. Heart Score: C/O Chest Pain: Yes Risk Factors: Risk Factors: DM, Current or recent (<one month) smoker, HTN, HLP, family history of CAD, obesity. Risk Scores: Score 0 - 3: 2.5% MACE over next 6 weeks - Discharge Home Score 4 - 6: 20.3% MACE over next 6 weeks - Admit for Clinical Observation Score 7 - 10: 72.7% MACE over next 6 weeks - Early Invasive Strategies Allergies: Allergies: Allergies Coded Allergies Type Severity Reaction Last Updated Verified No Known Medication Allergies Allergy Unknown 03/09/19 Yes fentanyl Adverse Reaction Severe 03/11/19 Yes Physical Exam: PE: Constitutional: Well developed, well nourished, no acute distress, non-toxic appearance. She is chronically ill appearing. HENT: Normocephalic, atraumatic, oropharynx is patent and clear. Mucous membranes are slightly tacky. Eyes: Sclera are clear and anicteric. Neck: Achy yet is midline, no tenderness. Cardiovascular: Regular rate and rhythm, +2 dorsalis pedis and +2 radial pulses, no peripheral edema, no cyanosis, well-perfused appearing. Lungs & Thorax: Mild tachypnea noted, mild to moderate cough noted. Inspiratory and expiratory wheezes noted bilaterally. No stridor. Diminished breath sounds in bilateral bases. No rhonchi. No stridor. Speaks in full and clear sentences. Abdomen: Abdomen is obese, soft, nondistended, nontender to palpation. Skin: Warm, dry, skin is relatively unkempt, there are superficial abrasions on the right lower extremity and right dorsal foot. There is dried dirt and debris on bilateral feet. No large open wounds or bleeding. No jaundice. Extremities: No tenderness, no cyanosis, no clubbing, ROM intact, no edema. [] Neurologic: Awake, alert, oriented to "hospital" and person, not oriented to date, time or specifics of situation (reportedly baseline), moves all 4 extremities equally, sensation grossly intact, no facial asymmetry, speech is fluent Psychologic: She is intermittently agitated and verbally abusive, yelling frequently. EKG: EKG: EKG interpreted at 0727 Rhythm is regular Rate is 63 bpm Normal axis No STEMI Radiology/Procedures: Radiology/Procedures: IMAGING REPORT Signed PATIENT: DOROTA BINGHAM ACCOUNT: [id number] : 1935 LOCATION: ER AGE: 86 SEX: F EXAM STATUS: PRE ER ORD. PHYSICIAN: SIMON BERMUDEZ DO REASON: dyspnea, chest pain PROCEDURE: PORTABLE CHEST 1V EXAMINATION: Chest radiograph. VIEWS: Single AP view of the chest COMPARISON: 06/11/2020 INDICATION:86 years, Female, dyspnea, chest pain. FINDINGS: Stable cardiomediastinal silhouette. Left chest loop recorder is again noted. Slightly increased bilateral lower lobe atelectasis or interstitial infiltrate, superimposed on chronic interstitial changes. No pneumothorax or sizable pleural effusion. No acute osseous findings. Moderate to severe degenerative changes of bilateral shoulders. IMPRESSION: Similar, slightly increased bilateral lower lobe atelectasis or interstitial infiltrate Electronically signed by: Noe Mondragon DO (08/19/2021 7:43 AM) [facility] DICTATED and SIGNED BY: NOE MONDRAGON DO DATE: 08/19/21 [id number] Course & Med Decision Making: Course & Med Decision Making Pertinent Labs and Imaging studies reviewed. (See chart for details) I discussed the findings, differential diagnosis and plan of care with the patient. The patient took her IV out. She is now spitting at me, demanding to leave she has been uncooperative, yelling and being physically aggressive with the nursing staff. She insists on leaving. I contacted Dr. Perea regarding the patient's clinical condition. She has manifested no evidence of respiratory distress or hypoxia here. She has a known DVT. He did suggest repeating an ultrasound, though I did ask what this might add to the clinical decision making, as she is definitively not a candidate for anticoagulation, and he agrees that this would not add any beneficial information, and he is comfortable with me sending her back to her long-term facility. She may return to the ER at anytime, for any reason. No indication for admission at this time. Dragon Disclaimer: Draglisa Disclaimer: This electronic medical record was generated, in whole or in part, using a voice recognition dictation system. Departure Departure Impression: Primary Impression: History of DVT of lower extremity Additional Impression: Dementia Disposition: 03 ALF FACILITY Condition: STABLE Referrals: ALEXY PEREA MD (PCP) Patient Instructions: Deep Vein Thrombosis, Dementia Additional Instructions: Your ER work-up here today is unremarkable. You have manifested no evidence of respiratory distress, your oxygen level is normal on room air here. Please follow-up with Dr. Perea for further evaluation and treatment of your lower extremity clot. Currently, you are not a candidate for blood thinning medication. There is no indication currently, clinically, today that you have any clot in your lung. If you develop any chest pain, shortness of breath, if your oxygen falls below 92%, with evidence of elevated heart rate, elevated respiratory rate, pale or blue skin or other concerns, you may return immedi ately. SIMON BERMUDEZ DO Aug 19, 2021 06:59
[2021-08-19] MEDS ORDERED: IPRATRPIUM/ALBUTEROL 0.5/2.5MG 3 ML NEBU. NEB ONE (07:15)
[2021-08-19] MEDS ORDERED: methylPREDNISolone SOD SUCC PF 125 MG/2 ML VIAL. IV ONE (07:30)
--- NOTE | 2021-08-19 07:45 | RAD ---
EXAMINATION: Chest radiograph. VIEWS: Single AP view of the chest COMPARISON: 06/11/2020 INDICATION:86 years, Female, dyspnea, chest pain. FINDINGS: Stable cardiomediastinal silhouette. Left chest loop recorder is again noted. Slightly increased bila teral lower lobe atelectasis or interstitial infiltrate, superimposed on chronic interstitial changes . No pneumothorax or sizable pleural effusion. No acute osseous findings. Moderate to severe degenera tive changes of bilateral shoulders. IMPRESSION: Similar, slightly increased bilateral lower lobe atelectasis or interstitial infiltrate Electronically signed by: Kaushik Mondragon DO (08/19/2021 7:43 AM) [facility]
[2021-08-19 07:56] LABS: BASO % 1 % (0-3); EOS # 0.2 x10^3/uL (0.0-0.7); EOS % 4 % (0-3); HEMATOCRIT 36.2 % (36.0-47.0); HEMOGLOBIN 12.4 g/dL (12.0-15.5); LYMPH # 0.8 x10^3/uL (1.0-4.8); LYMPH % 18 % (24-48); MEAN CORPUSCULAR HEMOGLOBIN 34 pg (25-35); MEAN CORPUSCULAR HGB CONC 34 g/dL (31-37); MEAN CORPUSCULAR VOLUME 99 fL (79-100); MONO # 0.4 x10^3/uL (0.0-1.1); MONO % 9 % (0-9); NEUT # 3.1 x10^3/uL (1.8-7.7); NEUT % 68 % (31-73); PLATELET COUNT 127 x10^3/uL (140-400); RED BLOOD COUNT 3.64 x10^6/uL (3.50-5.40); RED CELL DISTRIBUTION WIDTH 13.5 % (11.5-14.5); WHITE BLOOD COUNT 4.5 x10^3/uL (4.0-11.0)
[2021-08-19 08:09] LABS: CALCIUM 8.7 mg/dL (8.5-10.1); CREATININE 1.6 mg/dL (0.6-1.0); GFR 30.7; POTASSIUM 4.5 mmol/L (3.5-5.1)
[2021-08-19 08:14] LABS: INFLUENZA A PATIENT NEGATIVE (NEGATIVE); INFLUENZA B PATIENT NEGATIVE (NEGATIVE)
[2021-08-19 08:15] LABS: ALBUMIN 3.2 g/dL (3.4-5.0); ALBUMIN/GLOBULIN RATIO 0.7 (1.0-1.7); MAGNESIUM 2.1 mg/dL (1.8-2.4); PHOSPHORUS 3.2 mg/dL (2.6-4.7); TOTAL BILIRUBIN 0.5 mg/dL (0.2-1.0); TOTAL PROTEIN 7.6 g/dL (6.4-8.2)
[2021-08-19 08:25] VITALS: BP 140/54
--- NOTE | 2021-08-20 05:55 | EKG ---
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
--- NOTE | 2021-08-20 09:36 | NUR ---
IP: Attempted to contact pt concerning covid results. No answer, no voicemail.
== END 2021-08-19 11:55 | disposition home or self-care (01) ==
LOC: ER 06:49
DX: F03.90 Unspecified dementia, unspecified severity, without behavioral disturbance, psychotic disturbance, mood disturbance, and anxiety (principal); Z20.822 Contact with and (suspected) exposure to COVID-19; R06.02 Shortness of breath; R07.89 Other chest pain; R05.9 Cough, unspecified; I10 Essential (primary) hypertension; Z88.4 Allergy status to anesthetic agent
CPT/HCPCS: 36415; 71045; 80053; 82550; 83605; 83735; 83880; 84100; 84484; 85025; 87040; 87426; 87804; 93005; 94640; 96374; 99285; J2930; U0003; U0005